=== PATIENT | female | born 1985 | race Caucasian/White ===

== ENCOUNTER 2019-04-22 11:00 | Observation (INO) | payer MEDICAID ==
[2019-04-22] MEDS ORDERED: Sodium Chloride 0.9% 1,000 ML IV ONE ×2 (11:15→12:48)
[2019-04-22] MEDS ORDERED: Sodium Chloride 0.9% 2.5 ML Syringe FLUSH PRN (11:15)
[2019-04-22] MEDS ORDERED: Alum Hydrox/Mag Hydrox/Simeth 15 ML, Lidocaine 2% 5 ML PO ONE ×2 (11:15)
[2019-04-22] MEDS ORDERED: Sodium Chloride 0.9% 10 ML Syringe FLUSH PRN (11:15)
--- NOTE | 2019-04-22 11:20 | EDM.PDOC ---
ED HPI GENERAL MEDICAL PROBLEM - General Chief Complaint: Abdominal Pain Stated Complaint: STOMACH PAIN AND VOMITING Time Seen by Provider: 04/22/19 11:19 Source of Information: Reports: Patient History Limitations: Reports: No Limitations - History of Present Illness INITIAL COMMENTS - FREE TEXT/NARRATIVE: HISTORY AND PHYSICAL: History of present illness: Patient is a 33-year-old female presents to the ED with complaint of abdominal pain and vomiting x 4 days. She reports having a fever the first day, can't keep anything down and has been dizzy. She reports back pain as well. Denies chest pain, SOB, diarrhea, dysuria, hematuria. Past medical history significant for T1DM. Patient has a power port secondary to multiple hospital visits due to her diabetes. Review of systems: As per history of present illness and below otherwise all systems reviewed and negative. Past medical history: As per history of present illness and as reviewed below otherwise noncontributory. Surgical history: As per history of present illness and as reviewed below otherwise noncontributory. Social history: No reported history of drug or alcohol abuse. Family history: As per history of present illness and as reviewed below otherwise noncontributory. Physical exam: General: Patient sitting comfortably in no acute distress and nontoxic appearing HEENT: Atraumatic, normocephalic, pupils reactive, negative for conjunctival pallor or scleral icterus, mucous membranes moist, throat clear, neck supple, nontender, trachea midline. No meningeal signs. Lungs: Clear to auscultation, breath sounds equal bilaterally, chest nontender. Heart: S1S2, regular, negative for clicks, rubs, or overt murmur. Abdomen: Soft, nondistended, nontender. Negative for masses or hepatosplenomegaly.Bilateral costovertebral tenderness. No rigidity, rebound, guarding. Pelvis: Stable nontender. Genitourinary: Deferred. Rectal: Deferred. Extremities: Atraumatic, negative for cords or calf pain. Neurovascular unremarkable. Neuro: Awake, alert, oriented. Cranial nerves II through XII unremarkable. Cerebellum unremarkable. Motor and sensory unremarkable throughout. Exam nonfocal. Notes: Discussed with patient that she has elevated liver enzymes, she reports a history of this due to fatty liver disease Diagnostics: CBC, CMP, UA, urine hcg, EKG, ABG Therapeutics: 1L NS IV GI cocktail 10U insulin IV 2mg Morphine IV 50mg Benadryl IV Levaquin IV Prescriptions: Impression: Dehydration, pyelonephritis Plan: Discussed with Dr. [place], patient admitted to observation for treatment of pyelonephritis and dehydration Definitive disposition and diagnosis as appropriate pending reevaluation and review of above. epigastric Pain Score (Numeric/FACES): 9 - Related Data Allergies Allergy/AdvReac Type Severity Reaction Status Date / Time acetaminophen [From Tylenol] Allergy Other Verified 04/22/19 11:15 aspirin Allergy Other Verified 04/22/19 11:15 buprenorphine [From Buprenex] Allergy Hallucinati Verified 04/22/19 11:15 ons butorphanol [From Stadol] Allergy Hallucinati Verified 04/22/19 11:15 ons ceftriaxone [From Rocephin] Allergy Indigestion Verified 04/22/19 11:15 cephalexin [From Keflex] Allergy Hallucinati Verified 04/22/19 11:15 ons fentanyl Allergy Hallucinati Verified 04/22/19 11:15 ons hydromorphone [From Dilaudid] Allergy Hives Verified 04/22/19 11:15 ketorolac [From Toradol] Allergy Hallucinati Verified 04/22/19 11:15 ons metoclopramide [From Reglan] Allergy Seizure Verified 04/22/19 11:15 tramadol Allergy Hallucinati Verified 04/22/19 11:15 ons Home Meds: Home Meds Albuterol [Proventil Neb Soln] 1 puff INH ASDIRECTED PRN 04/22/19 [History] Insulin Degludec [Tresiba] 15 units INJECT ACDINNER 04/22/19 [History] Insulin Degludec [Tresiba] 25 units INJECT ACBREAKFAST 04/22/19 [History] Insulin Lispro [HumaLOG] 1 dose INJECT ASDIRECTED 04/22/19 [History] LORazepam [Ativan] 1 mg PO ASDIRECTED PRN 04/22/19 [History] [place] Aspartate [Lithate] 300 mg PO BID 04/22/19 [History] QUEtiapine [SEROquel] 200 mg PO BEDTIME 04/22/19 [History] ED ROS GENERAL - Review of Systems Review Of Systems: ROS reveals no pertinent complaints other than HPI. ED EXAM, GI/ABD - Physical Exam Exam: See Below (see dictation) Course - Vital Signs Last Recorded V/S: Last Vital Signs Temp 97.5 F 04/22/19 11:10 Pulse 93 04/22/19 12:45 Resp 16 04/22/19 12:45 BP 113/71 04/22/19 12:55 Pulse Ox 96 04/22/19 12:45 - Orders/Labs/Meds Orders: Active Orders 24 hr Category Date Time Status Blood Glucose Check, Bedside [RC] ONETIME Care 04/22/19 11:20 Active EKG Documentation Completion [RC] STAT Care 04/22/19 11:22 Active CULTURE BLOOD [BC] Stat Lab 04/22/19 13:26 Ordered CULTURE BLOOD [BC] Stat Lab 04/22/19 13:26 Ordered CULTURE URINE [RM] Stat Lab 04/22/19 12:50 Received Levofloxacin/Dextrose 5%-Water [Levaquin in D5W 750 MG/ Med 04/22/19 13:26 Ordered 150 ML] 750 mg Premix Bag 1 bag IV ONETIME Sodium Chloride 0.9% [Normal Saline] 1,000 ml Med 04/22/19 12:48 Active IV .Bolus Sodium Chloride 0.9% [Saline Flush] Med 04/22/19 11:15 Active 10 ml FLUSH ASDIRECTED PRN Sodium Chloride 0.9% [Saline Flush] Med 04/22/19 11:15 Active 2.5 ml FLUSH ASDIRECTED PRN Blood Culture x2 Reflex Set [OM.PC] Stat Oth 04/22/19 13:26 Ordered Saline Lock Insert [OM.PC] Stat Ot 04/22/19 11:15 Ordered Medication Orders Sodium Chloride (Normal Saline) 1,000 mls @ 999 mls/hr IV .Bolus ONE Stop: 04/22/19 13:48 Last Admin: 04/22/19 12:49 Dose: 999 mls/hr Sodium Chloride (Saline Flush) 10 ml FLUSH ASDIRECTED PRN PRN Reason: Keep Vein Open Sodium Chloride (Saline Flush) 2.5 ml FLUSH ASDIRECTED PRN PRN Reason: Keep Vein Open Labs: Laboratory Tests 04/22/19 04/22/19 04/22/19 Range/Units 11:13 11:30 11:30 WBC 7.21 (4.0-11.0) K/uL RBC 4.82 (4.30-5.90) M/uL Hgb 14.0 (12.0-16.0) g/dL Hct 40.8 (36.0-46.0) % MCV 84.6 (80.0-98.0) fL MCH 29.0 (27.0-32.0) pg MCHC 34.3 (31.0-37.0) g/dL RDW Std Deviation 41.2 (28.0-62.0) fl RDW Coeff of Krystina 13 (11.0-15.0) % Plt Count 289 (150-400) K/uL MPV 12.00 (7.40-12.00) fL Neut % (Auto) 55.8 (48.0-80.0) % Lymph % (Auto) 31.6 (16.0-40.0) % [place] % (Auto) 7.8 (0.0-15.0) % Eos % (Auto) 3.7 (0.0-7.0) % Baso % (Auto) 1.1 (0.0-1.5) % Neut # (Auto) 4.0 (1.4-5.7) K/uL Lymph # (Auto) 2.3 (0.6-2.4) K/uL [place] # (Auto) 0.6 (0.0-0.8) K/uL Eos # (Auto) 0.3 (0.0-0.7) K/uL Baso # (Auto) 0.1 (0.0-0.1) K/uL Nucleated RBC % 0.0 /100WBC Nucleated RBCs # 0 K/uL VBG pH (7.31-7.41) VBG pCO2 (35-45) mmHG VBG pO2 (30-40) mmHG VBG HCO3 (22-30) mEq/L VBG Total CO2 (41-51) mmol/L VBG Base Excess (-3.0-3.0) Sodium 124 L (136-145) mmol/L Potassium 3.6 (3.5-5.1) mmol/L Chloride 87 L (98-107) mmol/L Carbon Dioxide 20.3 L (21.0-32.0) mmol/L BUN 27 H (7.0-18.0) mg/dL Creatinine 1.5 H (0.6-1.0) mg/dL Est Cr Clr Drug Dosing 48.45 mL/min Estimated GFR (MDRD) 40.2 ml/min Glucose 674 H* (74-106) mg/dL POC Glucose > 500 H (60-110) mg/dL Calcium 9.4 (8.5-10.1) mg/dL Total Bilirubin 0.6 (0.2-1.0) mg/dL AST 68 H (15-37) IU/L ALT 215 H (14-63) IU/L Alkaline Phosphatase 332 H (46-116) U/L Total Protein 8.0 (6.4-8.2) g/dL Albumin 4.2 (3.4-5.0) g/dL Globulin 3.8 (2.6-4.0) g/dL Albumin/Globulin Ratio 1.1 (0.9-1.6) Lipase 259 (73-393) U/L Urine Color Urine Appearance Urine pH (5.0-8.0) Ur Specific [place] (1.001-1.035) Urine Protein (NEGATIVE) mg/dL Urine Glucose (UA) (NEGATIVE) mg/dL Urine Ketones (NEGATIVE) mg/dL Urine Occult Blood (NEGATIVE) Urine Nitrite (NEGATIVE) Urine Bilirubin (NEGATIVE) Urine Urobilinogen (<2.0) EU/dL Ur Leukocyte Esterase (NEGATIVE) Urine RBC (0-2/HPF) Urine WBC (0-5/HPF) Ur Epithelial Cells (NONE-FEW) Urine Bacteria (NEGATIVE) Urine Mucus (NONE-MOD) Urine Yeast Urine HCG, Qual (NEGATIVE) 04/22/19 04/22/19 04/22/19 Range/Units 12:19 12:20 12:50 WBC (4.0-11.0) K/uL RBC (4.30-5.90) M/uL Hgb (12.0-16.0) g/dL Hct (36.0-46.0) % MCV (80.0-98.0) fL MCH (27.0-32.0) pg MCHC (31.0-37.0) g/dL RDW Std Deviation (28.0-62.0) fl RDW Coeff of Krystina (11.0-15.0) % Plt Count (150-400) K/uL MPV (7.40-12.00) fL Neut % (Auto) (48.0-80.0) % Lymph % (Auto) (16.0-40.0) % [place] % (Auto) (0.0-15.0) % Eos % (Auto) (0.0-7.0) % Baso % (Auto) (0.0-1.5) % Neut # (Auto) (1.4-5.7) K/uL Lymph # (Auto) (0.6-2.4) K/uL [place] # (Auto) (0.0-0.8) K/uL Eos # (Auto) (0.0-0.7) K/uL Baso # (Auto) (0.0-0.1) K/uL Nucleated RBC % /100WBC Nucleated RBCs # K/uL VBG pH 7.36 (7.31-7.41) VBG pCO2 39 (35-45) mmHG VBG pO2 40 (30-40) mmHG VBG HCO3 22 (22-30) mEq/L VBG Total CO2 20 L (41-51) mmol/L VBG Base Excess -3.2 L (-3.0-3.0) Sodium (136-145) mmol/L Potassium (3.5-5.1) mmol/L Chloride (98-107) mmol/L Carbon Dioxide (21.0-32.0) mmol/L BUN (7.0-18.0) mg/dL Creatinine (0.6-1.0) mg/dL Est Cr Clr Drug Dosing mL/min Estimated GFR (MDRD) ml/min Glucose (74-106) mg/dL POC Glucose > 500 H (60-110) mg/dL Calcium (8.5-10.1) mg/dL Total Bilirubin (0.2-1.0) mg/dL AST (15-37) IU/L ALT (14-63) IU/L Alkaline Phosphatase (46-116) U/L Total Protein (6.4-8.2) g/dL Albumin (3.4-5.0) g/dL Globulin (2.6-4.0) g/dL Albumin/Globulin Ratio (0.9-1.6) Lipase (73-393) U/L Urine Color YELLOW Urine Appearance SLT CLOUDY Urine pH 5.5 (5.0-8.0) Ur Specific [place] 1.010 (1.001-1.035) Urine Protein NEGATIVE (NEGATIVE) mg/dL Urine Glucose (UA) >=1000 (NEGATIVE) mg/dL Urine Ketones 15 H (NEGATIVE) mg/dL Urine Occult Blood TRACE-INTACT H (NEGATIVE) Urine Nitrite POSITIVE H (NEGATIVE) Urine Bilirubin NEGATIVE (NEGATIVE) Urine Urobilinogen 0.2 (<2.0) EU/dL Ur Leukocyte Esterase TRACE H (NEGATIVE) Urine RBC 0-3 (0-2/HPF) Urine WBC 10-15 (0-5/HPF) Ur Epithelial Cells MANY (NONE-FEW) Urine Bacteria 3+ H (NEGATIVE) Urine Mucus LIGHT (NONE-MOD) Urine Yeast FEW Urine HCG, Qual (NEGATIVE) 04/22/19 04/22/19 Range/Units 12:50 13:02 WBC (4.0-11.0) K/uL RBC (4.30-5.90) M/uL Hgb (12.0-16.0) g/dL Hct (36.0-46.0) % MCV (80.0-98.0) fL MCH (27.0-32.0) pg MCHC (31.0-37.0) g/dL RDW Std Deviation (28.0-62.0) fl RDW Coeff of Krystina (11.0-15.0) % Plt Count (150-400) K/uL MPV (7.40-12.00) fL Neut % (Auto) (48.0-80.0) % Lymph % (Auto) (16.0-40.0) % [place] % (Auto) (0.0-15.0) % Eos % (Auto) (0.0-7.0) % Baso % (Auto) (0.0-1.5) % Neut # (Auto) (1.4-5.7) K/uL Lymph # (Auto) (0.6-2.4) K/uL [place] # (Auto) (0.0-0.8) K/uL Eos # (Auto) (0.0-0.7) K/uL Baso # (Auto) (0.0-0.1) K/uL Nucleated RBC % /100WBC Nucleated RBCs # K/uL VBG pH (7.31-7.41) VBG pCO2 (35-45) mmHG VBG pO2 (30-40) mmHG VBG HCO3 (22-30) mEq/L VBG Total CO2 (41-51) mmol/L VBG Base Excess (-3.0-3.0) Sodium (136-145) mmol/L Potassium (3.5-5.1) mmol/L Chloride (98-107) mmol/L Carbon Dioxide (21.0-32.0) mmol/L BUN (7.0-18.0) mg/dL Creatinine (0.6-1.0) mg/dL Est Cr Clr Drug Dosing mL/min Estimated GFR (MDRD) ml/min Glucose (74-106) mg/dL POC Glucose 387 H (60-110) mg/dL Calcium (8.5-10.1) mg/dL Total Bilirubin (0.2-1.0) mg/dL AST (15-37) IU/L ALT (14-63) IU/L Alkaline Phosphatase (46-116) U/L Total Protein (6.4-8.2) g/dL Albumin (3.4-5.0) g/dL Globulin (2.6-4.0) g/dL Albumin/Globulin Ratio (0.9-1.6) Lipase (73-393) U/L Urine Color Urine Appearance Urine pH (5.0-8.0) Ur Specific [place] (1.001-1.035) Urine Protein (NEGATIVE) mg/dL Urine Glucose (UA) (NEGATIVE) mg/dL Urine Ketones (NEGATIVE) mg/dL Urine Occult Blood (NEGATIVE) Urine Nitrite (NEGATIVE) Urine Bilirubin (NEGATIVE) Urine Urobilinogen (<2.0) EU/dL Ur Leukocyte Esterase (NEGATIVE) Urine RBC (0-2/HPF) Urine WBC (0-5/HPF) Ur Epithelial Cells (NONE-FEW) Urine Bacteria (NEGATIVE) Urine Mucus (NONE-MOD) Urine Yeast Urine HCG, Qual NEGATIVE (NEGATIVE) Meds: Medications Generic Name Dose Route Start Last Admin Trade Name Freq PRN Reason Stop Dose Admin Sodium Chloride 1,000 mls @ 999 mls/hr 04/22/19 12:48 04/22/19 12:49 Normal Saline IV 04/22/19 13:48 999 mls/hr .Bolus ONE Administration Sodium Chloride 10 ml 04/22/19 11:15 Saline Flush FLUSH ASDIRECTED PRN Keep Vein Open Sodium Chloride 2.5 ml 04/22/19 11:15 Saline Flush FLUSH ASDIRECTED PRN Keep Vein Open Discontinued Medications Generic Name Dose Route Start Last Admin Trade Name Freq PRN Reason Stop Dose Admin Al Hydroxide/Mg Hydroxide 15 0 ml 04/22/19 11:15 04/22/19 11:27 ml/ Lidocaine HCl 5 ml PO 04/22/19 11:16 1 each ONETIME ONE Administration Diphenhydramine HCl 50 mg 04/22/19 12:38 04/22/19 12:50 Benadryl IVPUSH 04/22/19 12:39 50 mg ONETIME ONE Administration Sodium Chloride 1,000 mls @ 999 mls/hr 04/22/19 11:15 04/22/19 11:29 Normal Saline IV 04/22/19 12:15 999 mls/hr STAT ONE Administration Insulin Human Regular 10 unit 04/22/19 11:37 04/22/19 11:49 Novolin R IVPUSH 04/22/19 11:38 10 units ONETIME ONE Administration Protocol Morphine Sulfate 2 mg 04/22/19 12:35 04/22/19 12:50 Morphine IVPUSH 04/22/19 12:36 2 mg ONETIME ONE Administration Departure - Departure Time of Disposition: 13:28 Disposition: Refer to Observation Condition: Good Clinical Impression: Pyelonephritis, Dehydration - Discharge Information Referrals: PCP,Unknown [Primary Care Provider] - Forms: ED Department Discharge - My Orders Last 24 Hours: My Active Orders 04/22/19 11:15 Sodium Chloride 0.9% [Saline Flush] 10 ml FLUSH ASDIRECTED PRN Sodium Chloride 0.9% [Saline Flush] 2.5 ml FLUSH ASDIRECTED PRN Saline Lock Insert [OM.PC] Stat 04/22/19 11:20 Blood Glucose Check, Bedside [RC] ONETIME 04/22/19 11:22 EKG Documentation Completion [RC] STAT 04/22/19 12:48 Sodium Chloride 0.9% [Normal Saline] 1,000 ml IV .Bolus 04/22/19 12:50 CULTURE URINE [RM] Stat 04/22/19 13:26 CULTURE BLOOD [BC] Stat CULTURE BLOOD [BC] Stat Levofloxacin/Dextrose 5%-Water [Levaquin in D5W 750 MG/150 ML] 750 mg Premix Bag 1 bag IV ONETIME Blood Culture x2 Reflex Set [OM.PC] Stat - Assessment/Plan Last 24 Hours: My Active Orders 04/22/19 11:15 Sodium Chloride 0.9% [Saline Flush] 10 ml FLUSH ASDIRECTED PRN Sodium Chloride 0.9% [Saline Flush] 2.5 ml FLUSH ASDIRECTED PRN Saline Lock Insert [OM.PC] Stat 04/22/19 11:20 Blood Glucose Check, Bedside [RC] ONETIME 04/22/19 11:22 EKG Documentation Completion [RC] STAT 04/22/19 12:48 Sodium Chloride 0.9% [Normal Saline] 1,000 ml IV .Bolus 04/22/19 12:50 CULTURE URINE [RM] Stat 04/22/19 13:26 CULTURE BLOOD [BC] Stat CULTURE BLOOD [BC] Stat Levofloxacin/Dextrose 5%-Water [Levaquin in D5W 750 MG/150 ML] 750 mg Premix Bag 1 bag IV ONETIME Blood Culture x2 Reflex Set [OM.PC] Stat
[2019-04-22] MEDS ORDERED: Insulin Regular, Human 100 Units/ML 10 ML Vial IVPUSH ONE (11:37)
[2019-04-22] MEDS ORDERED: Morphine 2 MG/ML Syringe IVPUSH ONE (12:35)
[2019-04-22] MEDS ORDERED: diphenhydrAMINE 50 MG/ML SDV IVPUSH ONE (12:38)
[2019-04-22] MEDS ORDERED: Levofloxacin/Dextrose 5%-Water 750 MG in Premix Bag 1 BAG IV ONE (13:26)
[2019-04-22] MEDS ORDERED: Non-Formulary Medication 1 Each (Albuterol 1 PUFF) INH PRN (13:45)
[2019-04-22] MEDS ORDERED: LORazepam 1 MG Tab PO PRN (13:45)
--- NOTE | 2019-04-22 13:45 | PCM.HP ---
H&P History of Present Illness - General Date of Service: 04/22/19 Admit Problem/Dx: Admission Diagnosis/Problem Admission Diagnosis/Problem Pyelonephritis, gastroparesis, poorly controlled type 1 diabetes mellitus, neuropathy Source of Information: Patient History Limitations: Reports: No Limitations - History of Present Illness Initial Comments - Free Text/Narative: The patient is a 33-year-old lady who is presented to the emergency department primarily with a complaint of abdominal pain. The patient has a history of diabetic gastroparesis and she is a type I diabetic who is poorly controlled. The patient has recently moved to the area. The patient reports that she has been unable to keep anything down. She also had some fevers reported. The patient reports that she has had back pain as well. The patient also has a port secondary to multiple hospitalizations due to her diabetes and poor venous access. The patient has no other complaints at this time. Onset of Symptoms: Reports: Gradual Duration of Symptoms: Reports: Day(s): Location: Reports: Abdomen Quality: Reports: Pressure, Stabbing, Throbbing Severity: Moderate Improves with: Reports: Medication Worsens with: Reports: Eating Context: Reports: Other (Diabetes mellitus type 1) Associated Symptoms: Reports: Fever/Chills epigastric Pain Score (Numeric/FACES): 9 - Related Data Allergies/Adverse Reactions: Allergies Allergy/AdvReac Type Severity Reaction Status Date / Time acetaminophen [From Tylenol] Allergy Other Verified 04/22/19 14:22 aspirin Allergy Other Verified 04/22/19 14:22 buprenorphine [From Buprenex] Allergy Hallucinati Verified 04/22/19 14:22 ons butorphanol [From Stadol] Allergy Hallucinati Verified 04/22/19 14:22 ons ceftriaxone [From Rocephin] Allergy Indigestion Verified 04/22/19 14:22 cephalexin [From Keflex] Allergy Hallucinati Verified 04/22/19 14:22 ons fentanyl Allergy Hallucinati Verified 04/22/19 14:22 ons hydromorphone [From Dilaudid] Allergy Hives Verified 04/22/19 14:22 ketorolac [From Toradol] Allergy Hallucinati Verified 04/22/19 14:22 ons metoclopramide [From Reglan] Allergy Seizure Verified 04/22/19 14:22 tramadol Allergy Hallucinati Verified 04/22/19 14:22 ons Home Medications: Home Meds Albuterol [Proventil Neb Soln] 2 puff INH ASDIRECTED PRN 04/22/19 [History] Insulin Degludec [Tresiba] 15 units INJECT ACDINNER 04/22/19 [History] Insulin Degludec [Tresiba] 25 units INJECT ACBREAKFAST 04/22/19 [History] Insulin Lispro [HumaLOG] 1 dose INJECT ASDIRECTED 04/22/19 [History] LORazepam [Ativan] 1 mg PO ASDIRECTED PRN 04/22/19 [History] [place] Aspartate [Lithate] 300 mg PO BID 04/22/19 [History] QUEtiapine [SEROquel] 200 mg PO BEDTIME 04/22/19 [History] Past Medical History HEENT History: Reports: Impaired Vision Cardiovascular History: Reports: Other (See Below) Other Cardiovascular History: PAD Respiratory History: Reports: Asthma, Bronchitis, Recurrent, Pneumonia, Recurrent Gastrointestinal History: Reports: Other (See Below) Other Gastrointestinal History: Gastroparesis Genitourinary History: Reports: Renal Calculus, UTI, Recurrent 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: Reports: , Other (See Below) Other OB/BYN History: coma for 8 days due to UTI/spesis Musculoskeletal History: Reports: Osteoarthritis, Other (See Below) Other Musculoskeletal History: muscular atrophy Neurological History: Reports: Neuropathy, Diabetic Psychiatric History: Reports: Anxiety, Bipolar, Depression, Other (See Below) Other Psychiatric History: Schizoaffect disease, manic depressive Endocrine/Metabolic History: Reports: Diabetes, Type I Hematologic History: Reports: B12 Deficiency, Other (See Below) Other Hematologic History: hyponatremia Immunologic History: Reports: None Oncologic (Cancer) History: Reports: None Dermatologic History: Reports: Psoriasis - Infectious Disease History Infectious Disease History: Reports: Chicken Pox - Past Surgical History HEENT Surgical History: Reports: None Cardiovascular Surgical History: Reports: Other (See Below) Other Cardiovascular Surgeries/Procedures: PAD corrected at age 4 Respiratory Surgical History: Reports: None GI Surgical History: Reports: Cholecystectomy, Esophageal Dilatation Female Surgical History: Reports: D&C, Other (See Below) Other Female Surgeries/Procedures: D& C x3 Endocrine Surgical History: Reports: None Neurological Surgical History: Reports: None Musculoskeletal Surgical History: Reports: None Oncologic Surgical History: Reports: None Dermatological Surgical History: Reports: None Social & Family History - Family History Family Medical History: Noncontributory - Tobacco Use Smoking Status *Q: Current Every Day Smoker Years of Tobacco use: 15 Packs/Tins Daily: 0.5 - Caffeine Use Caffeine Use: Reports: Coffee, Soda - Alcohol Use Alcohol Use History: No - Recreational Drug Use Recreational Drug Use: No - Living Situation & Occupation Living situation: Reports: with Significant Other Occupation: Unemployed H&P Review of Systems - Review of Systems: Review Of Systems: See Below General: Reports: Fever, Chills HEENT: Reports: No Symptoms Pulmonary: Reports: No Symptoms Cardiovascular: Reports: No Symptoms Gastrointestinal: Reports: Abdominal Pain, Nausea, Vomiting Genitourinary: Reports: No Symptoms Musculoskeletal: Reports: Back Pain Skin: Reports: No Symptoms Psychiatric: Reports: No Symptoms Neurological: Reports: No Symptoms Hematologic/Lymphatic: Reports: No Symptoms Immunologic: Reports: No Symptoms Exam - Exam Exam: See Below - Vital Signs Vital Signs: Last Vital Signs Temp 36.4 C 04/22/19 11:10 Pulse 88 04/22/19 13:36 Resp 18 04/22/19 13:36 BP 109/65 04/22/19 13:36 Pulse Ox 97 04/22/19 13:36 Weight: 59.9 kg - Exam Quality Assessment: Other (Access port left chest wall). No: Supplemental Oxygen General: Alert, Oriented, Cooperative, Mild Distress HEENT: Conjunctiva Clear, EACs Clear, EOMI, Hearing Intact, Pupils Equal, PERRLA. No: Mucosa Moist & [place] (Dry, poor dentition) Neck: Supple, Trachea Midline Lungs: Clear to Auscultation, Normal Respiratory Effort Cardiovascular: Regular Rate, Regular Rhythm GI/Abdominal Exam: Soft, No Distention, Tender (Periumbilical). No: Normal Bowel Sounds (Decreased), Guarding, Rigid, Rebound Back Exam: Normal Inspection, Full Range of Motion Extremities: Normal Inspection, Normal Range of Motion, No Pedal Edema Skin: Warm, Dry, Intact Neurological: Cranial Nerves Intact Neuro Extensive - Mental Status: Alert, Oriented x3 Psychiatric: Alert, Normal Affect, Normal Mood - Patient Data Lab Results Last 24 hrs: Laboratory Results - last 24 hr 04/22/19 04/22/19 04/22/19 Range/Units 11:13 11:30 11:30 WBC 7.21 (4.0-11.0) K/uL RBC 4.82 (4.30-5.90) M/uL Hgb 14.0 (12.0-16.0) g/dL Hct 40.8 (36.0-46.0) % MCV 84.6 (80.0-98.0) fL MCH 29.0 (27.0-32.0) pg MCHC 34.3 (31.0-37.0) g/dL RDW Std Deviation 41.2 (28.0-62.0) fl RDW Coeff of Krystina 13 (11.0-15.0) % Plt Count 289 (150-400) K/uL MPV 12.00 (7.40-12.00) fL Neut % (Auto) 55.8 (48.0-80.0) % Lymph % (Auto) 31.6 (16.0-40.0) % [place] % (Auto) 7.8 (0.0-15.0) % Eos % (Auto) 3.7 (0.0-7.0) % Baso % (Auto) 1.1 (0.0-1.5) % Neut # (Auto) 4.0 (1.4-5.7) K/uL Lymph # (Auto) 2.3 (0.6-2.4) K/uL [place] # (Auto) 0.6 (0.0-0.8) K/uL Eos # (Auto) 0.3 (0.0-0.7) K/uL Baso # (Auto) 0.1 (0.0-0.1) K/uL Nucleated RBC % 0.0 /100WBC Nucleated RBCs # 0 K/uL VBG pH (7.31-7.41) VBG pCO2 (35-45) mmHG VBG pO2 (30-40) mmHG VBG HCO3 (22-30) mEq/L VBG Total CO2 (41-51) mmol/L VBG Base Excess (-3.0-3.0) Sodium 124 L (136-145) mmol/L Potassium 3.6 (3.5-5.1) mmol/L Chloride 87 L (98-107) mmol/L Carbon Dioxide 20.3 L (21.0-32.0) mmol/L BUN 27 H (7.0-18.0) mg/dL Creatinine 1.5 H (0.6-1.0) mg/dL Est Cr Clr Drug Dosing 48.45 mL/min Estimated GFR (MDRD) 40.2 ml/min Glucose 674 H* (74-106) mg/dL POC Glucose > 500 H (60-110) mg/dL Calcium 9.4 (8.5-10.1) mg/dL Total Bilirubin 0.6 (0.2-1.0) mg/dL AST 68 H (15-37) IU/L ALT 215 H (14-63) IU/L Alkaline Phosphatase 332 H (46-116) U/L Total Protein 8.0 (6.4-8.2) g/dL Albumin 4.2 (3.4-5.0) g/dL Globulin 3.8 (2.6-4.0) g/dL Albumin/Globulin Ratio 1.1 (0.9-1.6) Lipase 259 (73-393) U/L Urine Color Urine Appearance Urine pH (5.0-8.0) Ur Specific [place] (1.001-1.035) Urine Protein (NEGATIVE) mg/dL Urine Glucose (UA) (NEGATIVE) mg/dL Urine Ketones (NEGATIVE) mg/dL Urine Occult Blood (NEGATIVE) Urine Nitrite (NEGATIVE) Urine Bilirubin (NEGATIVE) Urine Urobilinogen (<2.0) EU/dL Ur Leukocyte Esterase (NEGATIVE) Urine RBC (0-2/HPF) Urine WBC (0-5/HPF) Ur Epithelial Cells (NONE-FEW) Urine Bacteria (NEGATIVE) Urine Mucus (NONE-MOD) Urine Yeast Urine HCG, Qual (NEGATIVE) 04/22/19 04/22/19 04/22/19 Range/Units 12:19 12:20 12:50 WBC (4.0-11.0) K/uL RBC (4.30-5.90) M/uL Hgb (12.0-16.0) g/dL Hct (36.0-46.0) % MCV (80.0-98.0) fL MCH (27.0-32.0) pg MCHC (31.0-37.0) g/dL RDW Std Deviation (28.0-62.0) fl RDW Coeff of Krystina (11.0-15.0) % Plt Count (150-400) K/uL MPV (7.40-12.00) fL Neut % (Auto) (48.0-80.0) % Lymph % (Auto) (16.0-40.0) % [place] % (Auto) (0.0-15.0) % Eos % (Auto) (0.0-7.0) % Baso % (Auto) (0.0-1.5) % Neut # (Auto) (1.4-5.7) K/uL Lymph # (Auto) (0.6-2.4) K/uL [place] # (Auto) (0.0-0.8) K/uL Eos # (Auto) (0.0-0.7) K/uL Baso # (Auto) (0.0-0.1) K/uL Nucleated RBC % /100WBC Nucleated RBCs # K/uL VBG pH 7.36 (7.31-7.41) VBG pCO2 39 (35-45) mmHG VBG pO2 40 (30-40) mmHG VBG HCO3 22 (22-30) mEq/L VBG Total CO2 20 L (41-51) mmol/L VBG Base Excess -3.2 L (-3.0-3.0) Sodium (136-145) mmol/L Potassium (3.5-5.1) mmol/L Chloride (98-107) mmol/L Carbon Dioxide (21.0-32.0) mmol/L BUN (7.0-18.0) mg/dL Creatinine (0.6-1.0) mg/dL Est Cr Clr Drug Dosing mL/min Estimated GFR (MDRD) ml/min Glucose (74-106) mg/dL POC Glucose > 500 H (60-110) mg/dL Calcium (8.5-10.1) mg/dL Total Bilirubin (0.2-1.0) mg/dL AST (15-37) IU/L ALT (14-63) IU/L Alkaline Phosphatase (46-116) U/L Total Protein (6.4-8.2) g/dL Albumin (3.4-5.0) g/dL Globulin (2.6-4.0) g/dL Albumin/Globulin Ratio (0.9-1.6) Lipase (73-393) U/L Urine Color YELLOW Urine Appearance SLT CLOUDY Urine pH 5.5 (5.0-8.0) Ur Specific [place] 1.010 (1.001-1.035) Urine Protein NEGATIVE (NEGATIVE) mg/dL Urine Glucose (UA) >=1000 (NEGATIVE) mg/dL Urine Ketones 15 H (NEGATIVE) mg/dL Urine Occult Blood TRACE-INTACT H (NEGATIVE) Urine Nitrite POSITIVE H (NEGATIVE) Urine Bilirubin NEGATIVE (NEGATIVE) Urine Urobilinogen 0.2 (<2.0) EU/dL Ur Leukocyte Esterase TRACE H (NEGATIVE) Urine RBC 0-3 (0-2/HPF) Urine WBC 10-15 (0-5/HPF) Ur Epithelial Cells MANY (NONE-FEW) Urine Bacteria 3+ H (NEGATIVE) Urine Mucus LIGHT (NONE-MOD) Urine Yeast FEW Urine HCG, Qual (NEGATIVE) 04/22/19 04/22/19 Range/Units 12:50 13:02 WBC (4.0-11.0) K/uL RBC (4.30-5.90) M/uL Hgb (12.0-16.0) g/dL Hct (36.0-46.0) % MCV (80.0-98.0) fL MCH (27.0-32.0) pg MCHC (31.0-37.0) g/dL RDW Std Deviation (28.0-62.0) fl RDW Coeff of Krystina (11.0-15.0) % Plt Count (150-400) K/uL MPV (7.40-12.00) fL Neut % (Auto) (48.0-80.0) % Lymph % (Auto) (16.0-40.0) % [place] % (Auto) (0.0-15.0) % Eos % (Auto) (0.0-7.0) % Baso % (Auto) (0.0-1.5) % Neut # (Auto) (1.4-5.7) K/uL Lymph # (Auto) (0.6-2.4) K/uL [place] # (Auto) (0.0-0.8) K/uL Eos # (Auto) (0.0-0.7) K/uL Baso # (Auto) (0.0-0.1) K/uL Nucleated RBC % /100WBC Nucleated RBCs # K/uL VBG pH (7.31-7.41) VBG pCO2 (35-45) mmHG VBG pO2 (30-40) mmHG VBG HCO3 (22-30) mEq/L VBG Total CO2 (41-51) mmol/L VBG Base Excess (-3.0-3.0) Sodium (136-145) mmol/L Potassium (3.5-5.1) mmol/L Chloride (98-107) mmol/L Carbon Dioxide (21.0-32.0) mmol/L BUN (7.0-18.0) mg/dL Creatinine (0.6-1.0) mg/dL Est Cr Clr Drug Dosing mL/min Estimated GFR (MDRD) ml/min Glucose (74-106) mg/dL POC Glucose 387 H (60-110) mg/dL Calcium (8.5-10.1) mg/dL Total Bilirubin (0.2-1.0) mg/dL AST (15-37) IU/L ALT (14-63) IU/L Alkaline Phosphatase (46-116) U/L Total Protein (6.4-8.2) g/dL Albumin (3.4-5.0) g/dL Globulin (2.6-4.0) g/dL Albumin/Globulin Ratio (0.9-1.6) Lipase (73-393) U/L Urine Color Urine Appearance Urine pH (5.0-8.0) Ur Specific [place] (1.001-1.035) Urine Protein (NEGATIVE) mg/dL Urine Glucose (UA) (NEGATIVE) mg/dL Urine Ketones (NEGATIVE) mg/dL Urine Occult Blood (NEGATIVE) Urine Nitrite (NEGATIVE) Urine Bilirubin (NEGATIVE) Urine Urobilinogen (<2.0) EU/dL Ur Leukocyte Esterase (NEGATIVE) Urine RBC (0-2/HPF) Urine WBC (0-5/HPF) Ur Epithelial Cells (NONE-FEW) Urine Bacteria (NEGATIVE) Urine Mucus (NONE-MOD) Urine Yeast Urine HCG, Qual NEGATIVE (NEGATIVE) Result Diagrams: 04/22/19 11:30 04/22/19 11:30 - Problem List (1) Pyelonephritis SNOMED Code(s): 90694765 ICD Code: N12 - TUBULO-INTERSTITIAL NEPHRITIS, NOT SPCF ACUTE OR CHRONIC Status: Acute Priority: High Current Visit: Yes (2) Gastroparesis diabeticorum SNOMED Code(s): 900579820 ICD Code: E11.43 - TYPE 2 DIABETES W DIABETIC AUTONOMIC (POLY)NEUROPATHY; K31.84 - GASTROPARESIS Status: Chronic Priority: High Current Visit: Yes (3) Neuropathy due to unstable diabetes mellitus type 1 SNOMED Code(s): 094596564 ICD Code: E10.40 - TYPE 1 DIABETES MELLITUS WITH DIABETIC NEUROPATHY, UNSP Status: Chronic Priority: Medium Current Visit: Yes (4) Tobacco use SNOMED Code(s): 402499148 ICD Code: Z72.0 - TOBACCO USE Status: Chronic Priority: Medium Current Visit: Yes (5) Transaminitis SNOMED Code(s): 730244717, 264711415 ICD Code: R74.0 - NONSPEC ELEV OF LEVELS OF TRANSAMNS & LACTIC ACID DEHYDRGNSE Status: Chronic Priority: Medium Current Visit: Yes (6) Diabetes mellitus type 1, uncontrolled, with complications SNOMED Code(s): 77305744, 115870966 ICD Code: E10.8 - TYPE 1 DIABETES MELLITUS WITH UNSPECIFIED COMPLICATIONS; E10.65 - TYPE 1 DIABETES MELLITUS WITH HYPERGLYCEMIA Status: Chronic Priority: Medium Current Visit: Yes (7) Dehydration SNOMED Code(s): 81139964 ICD Code: E86.0 - DEHYDRATION Status: Acute Priority: High Current Visit: Yes Problem List Initiated/Reviewed/Updated: Yes Orders Last 24hrs: Active Orders 24 hr Category Date Time Status Admission Status [Patient Status] [ADT] Stat ADT 04/22/19 13:29 Active Blood Glucose Check, Bedside [RC] ONETIME Care 04/22/19 11:20 Active EKG Documentation Completion [RC] STAT Care 04/22/19 11:22 Active CULTURE BLOOD [BC] Stat Lab 04/22/19 13:26 Ordered CULTURE BLOOD [BC] Stat Lab 04/22/19 13:26 Ordered CULTURE URINE [RM] Stat Lab 04/22/19 12:50 Received Levofloxacin/Dextrose 5%-Water [Levaquin in D5W 750 MG/ Med 04/22/19 13:26 Active 150 ML] 750 mg Premix Bag 1 bag IV ONETIME Sodium Chloride 0.9% [Normal Saline] 1,000 ml Med 04/22/19 12:48 Active IV .Bolus Sodium Chloride 0.9% [Saline Flush] Med 04/22/19 11:15 Active 10 ml FLUSH ASDIRECTED PRN Sodium Chloride 0.9% [Saline Flush] Med 04/22/19 11:15 Active 2.5 ml FLUSH ASDIRECTED PRN Blood Culture x2 Reflex Set [OM.PC] Stat Ot 04/22/19 13:26 Ordered Saline Lock Insert [OM.PC] Stat Ot 04/22/19 11:15 Ordered Medication Orders Sodium Chloride (Normal Saline) 1,000 mls @ 999 mls/hr IV .Bolus ONE Stop: 04/22/19 13:48 Last Admin: 04/22/19 12:49 Dose: 999 mls/hr Levofloxacin/Dextrose 750 mg/ (Premix) 150 mls @ 100 mls/hr IV ONETIME ONE Stop: 04/22/19 14:55 Sodium Chloride (Saline Flush) 10 ml FLUSH ASDIRECTED PRN PRN Reason: Keep Vein Open Sodium Chloride (Saline Flush) 2.5 ml FLUSH ASDIRECTED PRN PRN Reason: Keep Vein Open Assessment/Plan Comment:: The patient is a 33-year-old lady with complicated type 1 diabetes associated with gastroparesis and neuropathy. The patient had been admitted secondary to dehydration predominantly as well as pyelonephritis. The patient has a history of allergies to cephalosporins and as a result of this the patient will be kept on Levaquin 500 mg IV daily. I've ordered laboratory testings to help exclude chronic kidney disease versus acute renal failure. The patient will also be anticoagulated with the use of heparin for DVT prophylaxis. I kept the patient on insulin 3 times a day before meals and on Accu-Cheks 3 times a day and before meals. The patient has had previously that Carafate and Zofran work to help with her diabetic gastroparesis. I've also ordered a hemoglobin A1c although I suspect this will be high. The patient has been consulted with special educator. Cultures are currently pending. I've also ordered repeat laboratory studies for the morning. The patient has been encouraged to ambulate. The patient will also have a 14 mg NicoDerm transdermal patch to help with smoking withdrawal symptoms. The patient should be appropriate for discharge in 1-2 days.
[2019-04-22] MEDS ORDERED: Ondansetron 4 MG Tab.DIS PO PRN (13:46)
[2019-04-22] MEDS ORDERED: Temazepam 15 MG Cap PO PRN (13:46)
[2019-04-22] MEDS ORDERED: Sodium Chloride 0.9% 1,000 ML IV SCH (14:00)
[2019-04-22] MEDS ORDERED: Nicotine 14 MG/24 Hr Patch TRDERM SCH (14:00)
[2019-04-22] MEDS ORDERED: Heparin Sodium 5,000 Units/ML Vial SUBCUT SCH (14:00)
[2019-04-22 14:18] LABS: HEMOGLOBIN A1C 12.4 % (4.5-6.2)
[2019-04-22] MEDS ORDERED: Insulin Aspart 100 Units/ML 3 ML Pen SUBCUT SCH (17:00)
[2019-04-22] MEDS ORDERED: Sucralfate 1 GM Tab PO SCH (17:00)
[2019-04-22] MEDS ORDERED: oxyCODONE 5 MG Tab PO PRN (17:59)
[2019-04-22] MEDS ORDERED: QUEtiapine 100 MG Tab PO SCH (21:00)
[2019-04-22] MEDS ORDERED: LITHIUM ASPARTATE PO SCH (21:00)
[2019-04-23] MEDS ORDERED: Levofloxacin/Dextrose 5%-Water 500 MG in Premix Bag 1 BAG IV SCH (09:00)
== END 2019-04-22 20:00 | disposition left against medical advice (07) ==
LOC: MW.ED 11:00 → EEVIPCON 13:42 → MW.MS 13:42
PROVIDERS: ADMIT Internal Medicine; ATTEND Internal Medicine
DX: N12 Tubulo-interstitial nephritis, not specified as acute or chronic (principal); E10.43 Type 1 diabetes mellitus with diabetic autonomic (poly)neuropathy; E10.65 Type 1 diabetes mellitus with hyperglycemia; K31.84 Gastroparesis; R74.0 Nonspecific elevation of levels of transaminase and lactic acid dehydrogenase [LDH]; J45.909 Unspecified asthma, uncomplicated; E86.0 Dehydration; R42 Dizziness and giddiness; M19.90 Unspecified osteoarthritis, unspecified site; F41.9 Anxiety disorder, unspecified; F25.0 Schizoaffective disorder, bipolar type; F17.210 Nicotine dependence, cigarettes, uncomplicated; Z88.6 Allergy status to analgesic agent; Z88.5 Allergy status to narcotic agent; Z88.1 Allergy status to other antibiotic agents; Z79.899 Other long term (current) drug therapy; Z79.4 Long term (current) use of insulin
CPT/HCPCS: 36415; 80053; 81001; 81025; 82803; 82962; 83036; 83690; 85025; 87040; 87086; 87088; 87186; 93005; 96361; 96365; 96375; 99285; A9270; G0378; J1200; J1642; J1815; J1956; J2270; J7040

== ENCOUNTER 2019-05-08 06:12 | Observation (INO) | payer MEDICAID ==
[2019-05-08] MEDS ORDERED: Sodium Chloride 0.9% 10 ML Syringe FLUSH PRN (06:35)
[2019-05-08] MEDS ORDERED: Sodium Chloride 0.9% 2.5 ML Syringe FLUSH PRN (06:35)
[2019-05-08 07:15] LABS: CARBON DIOXIDE,CO2 21.7 mmol/L (21.0-32.0); POTASSIUM,K 4.6 mmol/L (3.5-5.1)
[2019-05-08] MEDS ORDERED: Insulin Regular, Human 100 Units/ML 10 ML Vial IVPUSH ONE (07:15)
[2019-05-08] MEDS ORDERED: Insulin Regular, Human 100 Units/ML 10 ML Vial IV ONE ×2 (07:16→09:16)
[2019-05-08] MEDS ORDERED: Sodium Chloride 0.9% 1,000 ML IV ONE ×3 (07:19→12:22)
--- NOTE | 2019-05-08 07:21 | EDM.PDOC ---
ED HPI GENERAL MEDICAL PROBLEM - General Chief Complaint: General Stated Complaint: DISCOLORED STOOL Time Seen by Provider: 05/08/19 07:00 Source of Information: Reports: Patient History Limitations: Reports: No Limitations - History of Present Illness INITIAL COMMENTS - FREE TEXT/NARRATIVE: History of present illness: []Patient is an insulin-dependent diabetic that has had a few days of white pasty stools, abdominal pain and swelling and increase glucose. She had one episode of vomiting 4 days ago but has not had vomiting since. She is passing gas and having her last bowel movement last night. She denies any fevers or chills Review of systems: As per history of present illness and below otherwise all systems reviewed and negative. Past medical history: As per history of present illness and as reviewed below otherwise noncontributory. Surgical history: As per history of present illness and as reviewed below otherwise noncontributory. Social history: No reported history of drug or alcohol abuse. Family history: As per history of present illness and as reviewed below otherwise noncontributory. Physical exam: General: Well developed, well nourished in NAD HEENT: Atraumatic, normocephalic, pupils reactive, negative for conjunctival pallor or scleral icterus, mucous membranes moist, throat clear, neck supple, nontender, trachea midline. Lungs: Clear to auscultation, breath sounds equal bilaterally, chest nontender. Heart: S1S2, regular, negative for clicks, rubs, or JVD. Abdomen: NABS, tympanitic to percussion, no fluid wave, Soft, distended, mild tenderness throughout rebound or guarding. Negative for masses or hepatosplenomegaly. Negative for costovertebral tenderness. Pelvis: Stable nontender. Genitourinary: Deferred. Rectal: Deferred. Extremities: Atraumatic, negative for cords or calf pain. Neurovascular unremarkable. Neuro: Awake, alert, oriented. Cranial nerves II through XII unremarkable. Cerebellum unremarkable. Motor and sensory unremarkable throughout. Exam nonfocal. Skin:warm and dry Diagnostics: + Glucose, CBC, chemistry, lipase, serum ketones, abdomen ultrasound UA, test Therapeutics: IV hydration, insulin, morphine, Benadryl, Levsin ED Course: Stable, Impression: Controlled diabetes, Gastroparesis, elevated LFTs, Prescriptions: Plan: patient will be admitted for IV hydration, glucose control and further workup. Definitive disposition and diagnosis as appropriate pending reevaluation and review of above. Abdomen Pain Score (Numeric/FACES): 10 - Related Data Allergies Allergy/AdvReac Type Severity Reaction Status Date / Time acetaminophen [From Tylenol] Allergy Other Verified 05/08/19 11:06 aspirin Allergy Other Verified 05/08/19 11:06 buprenorphine [From Buprenex] Allergy Hallucinati Verified 05/08/19 11:06 ons butorphanol [From Stadol] Allergy Hallucinati Verified 05/08/19 11:06 ons ceftriaxone [From Rocephin] Allergy Hives Verified 05/08/19 11:06 cephalexin [From Keflex] Allergy Hallucinati Verified 05/08/19 11:06 ons fentanyl Allergy Hallucinati Verified 05/08/19 11:06 ons hydromorphone [From Dilaudid] Allergy Hives Verified 05/08/19 11:06 ketorolac [From Toradol] Allergy Hallucinati Verified 05/08/19 11:06 ons metoclopramide [From Reglan] Allergy Seizure Verified 05/08/19 11:06 morphine Allergy Itching Verified 05/08/19 10:09 tramadol Allergy Hallucinati Verified 05/08/19 11:06 ons Home Meds: Home Meds Albuterol [Proventil Neb Soln] 2 puff INH ASDIRECTED PRN 04/22/19 [History] Insulin Degludec [Tresiba] 15 units INJECT ACDINNER 04/22/19 [History] Insulin Degludec [Tresiba] 25 units INJECT ACBREAKFAST 04/22/19 [History] Insulin Lispro [HumaLOG] 1 dose INJECT ASDIRECTED 04/22/19 [History] LORazepam [Ativan] 1 mg PO ASDIRECTED PRN 04/22/19 [History] [place] Aspartate [Lithate] 300 mg PO BID 04/22/19 [History] Past Medical History HEENT History: Reports: Impaired Vision Other HEENT History: 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 Cardiovascular History: Reports: Other (See Below) Other Cardiovascular History: PAD Respiratory History: Reports: Asthma, Bronchitis, Recurrent, Pneumonia, Recurrent Gastrointestinal History: Reports: Other (See Below) Other Gastrointestinal History: Gastroparesis Genitourinary History: Reports: Renal Calculus, UTI, Recurrent SPOUT LINER History: Reports: , Other (See Below) Other SPOUT LINER History: coma for 8 days due to UTI/spesis Musculoskeletal History: Reports: Osteoarthritis, Other (See Below) Other Musculoskeletal History: muscular atrophy Neurological History: Reports: Neuropathy, Diabetic Psychiatric History: Reports: Anxiety, Bipolar, Depression, Other (See Below) Other Psychiatric History: Schizoaffect disease, manic depressive Endocrine/Metabolic History: Reports: Diabetes, Type I Hematologic History: Reports: B12 Deficiency, Other (See Below) Other Hematologic History: hyponatremia Immunologic History: Reports: None Oncologic (Cancer) History: Reports: None Dermatologic History: Reports: Psoriasis - Infectious Disease History Infectious Disease History: Reports: None - Past Surgical History HEENT Surgical History: Reports: None Cardiovascular Surgical History: Reports: Other (See Below) Other Cardiovascular Surgeries/Procedures: PAD corrected at age 4 Respiratory Surgical History: Reports: None GI Surgical History: Reports: Cholecystectomy, Esophageal Dilatation Female Surgical History: Reports: D&C, Other (See Below) Endocrine Surgical History: Reports: None Neurological Surgical History: Reports: None Musculoskeletal Surgical History: Reports: None Oncologic Surgical History: Reports: None Dermatological Surgical History: Reports: None Social & Family History - Family History Family Medical History: Noncontributory - Tobacco Use Smoking Status *Q: Unknown Ever Smoked - Caffeine Use Caffeine Use: Reports: Coffee, Soda Caffeine Use Comment: 2 pots of coffee today; 3 pops a day - Recreational Drug Use Recreational Drug Use: No - Living Situation & Occupation Living situation: Reports: with Significant Other Occupation: Unemployed ED ROS GENERAL - Review of Systems Review Of Systems: See Below ED EXAM, GI/ABD - Physical Exam Exam: See Below Course - Vital Signs Last Recorded V/S: Last Vital Signs Temp 98.1 F 05/08/19 10:01 Pulse 83 05/08/19 10:27 Resp 16 05/08/19 10:27 BP 117/78 05/08/19 10:27 Pulse Ox 100 05/08/19 10:27 - Orders/Labs/Meds Orders: Active Orders 24 hr Category Date Time Status Patient Status [ADT] Stat ADT 05/08/19 09:25 Active Blood Glucose Check, Bedside [RC] ONETIME Care 05/08/19 06:39 Active Implanted Port Access [RC] ASDIRECTED Care 05/08/19 06:39 Active Abdomen Comp [US] Stat Exams 05/08/19 07:30 Taken Labs: Laboratory Tests 05/08/19 05/08/19 05/08/19 Range/Units 06:20 06:20 06:50 WBC 7.43 (4.0-11.0) K/uL RBC 4.15 L (4.30-5.90) M/uL Hgb 12.3 (12.0-16.0) g/dL Hct 36.5 (36.0-46.0) % MCV 88.0 (80.0-98.0) fL MCH 29.6 (27.0-32.0) pg MCHC 33.7 (31.0-37.0) g/dL RDW Std Deviation 45.0 (28.0-62.0) fl RDW Coeff of Krystina 14 (11.0-15.0) % Plt Count 269 (150-400) K/uL MPV 12.30 H (7.40-12.00) fL Neut % (Auto) 52.6 (48.0-80.0) % Lymph % (Auto) 33.0 (16.0-40.0) % [place] % (Auto) 10.5 (0.0-15.0) % Eos % (Auto) 3.4 (0.0-7.0) % Baso % (Auto) 0.5 (0.0-1.5) % Neut # (Auto) 3.9 (1.4-5.7) K/uL Lymph # (Auto) 2.5 H (0.6-2.4) K/uL [place] # (Auto) 0.8 (0.0-0.8) K/uL Eos # (Auto) 0.3 (0.0-0.7) K/uL Baso # (Auto) 0.0 (0.0-0.1) K/uL INR Sodium (136-145) mmol/L Potassium (3.5-5.1) mmol/L Chloride (98-107) mmol/L Carbon Dioxide (21.0-32.0) mmol/L BUN (7.0-18.0) mg/dL Creatinine (0.6-1.0) mg/dL Est Cr Clr Drug Dosing mL/min Estimated GFR (MDRD) ml/min Glucose (74-106) mg/dL POC Glucose (60-110) mg/dL Calcium (8.5-10.1) mg/dL Total Bilirubin (0.2-1.0) mg/dL AST (15-37) IU/L ALT (14-63) IU/L Alkaline Phosphatase (46-116) U/L Total Protein (6.4-8.2) g/dL Albumin (3.4-5.0) g/dL Globulin (2.6-4.0) g/dL Albumin/Globulin Ratio (0.9-1.6) Lipase (73-393) U/L Urine Color YELLOW Urine Appearance CLEAR Urine pH 6.0 (5.0-8.0) Ur Specific [place] <= 1.005 (1.001-1.035) Urine Protein NEGATIVE (NEGATIVE) mg/dL Urine Glucose (UA) >=1000 (NEGATIVE) mg/dL Urine Ketones NEGATIVE (NEGATIVE) mg/dL Urine Occult Blood TRACE-INTACT H (NEGATIVE) Urine Nitrite NEGATIVE (NEGATIVE) Urine Bilirubin NEGATIVE (NEGATIVE) Urine Urobilinogen 0.2 (<2.0) EU/dL Ur Leukocyte Esterase NEGATIVE (NEGATIVE) Urine RBC 0-1 (0-2/HPF) Urine WBC 0-1 (0-5/HPF) Ur Epithelial Cells RARE (NONE-FEW) Urine Bacteria RARE (NEGATIVE) Urine HCG, Qual NEGATIVE (NEGATIVE) Ketones (NEG) 05/08/19 05/08/19 05/08/19 Range/Units 06:50 06:50 06:50 WBC (4.0-11.0) K/uL RBC (4.30-5.90) M/uL Hgb (12.0-16.0) g/dL Hct (36.0-46.0) % MCV (80.0-98.0) fL MCH (27.0-32.0) pg MCHC (31.0-37.0) g/dL RDW Std Deviation (28.0-62.0) fl RDW Coeff of Krystina (11.0-15.0) % Plt Count (150-400) K/uL MPV (7.40-12.00) fL Neut % (Auto) (48.0-80.0) % Lymph % (Auto) (16.0-40.0) % [place] % (Auto) (0.0-15.0) % Eos % (Auto) (0.0-7.0) % Baso % (Auto) (0.0-1.5) % Neut # (Auto) (1.4-5.7) K/uL Lymph # (Auto) (0.6-2.4) K/uL [place] # (Auto) (0.0-0.8) K/uL Eos # (Auto) (0.0-0.7) K/uL Baso # (Auto) (0.0-0.1) K/uL INR 0.86 Sodium 116 L* (136-145) mmol/L Potassium 4.6 (3.5-5.1) mmol/L Chloride 84 L (98-107) mmol/L Carbon Dioxide 21.7 (21.0-32.0) mmol/L BUN 24 H (7.0-18.0) mg/dL Creatinine 1.3 H (0.6-1.0) mg/dL Est Cr Clr Drug Dosing 55.90 mL/min Estimated GFR (MDRD) 47.5 ml/min Glucose 1161 H* (74-106) mg/dL POC Glucose (60-110) mg/dL Calcium 8.9 (8.5-10.1) mg/dL Total Bilirubin 0.3 (0.2-1.0) mg/dL AST 149 H (15-37) IU/L ALT 186 H (14-63) IU/L Alkaline Phosphatase 216 H (46-116) U/L Total Protein 7.1 (6.4-8.2) g/dL Albumin 3.7 (3.4-5.0) g/dL Globulin 3.4 (2.6-4.0) g/dL Albumin/Globulin Ratio 1.1 (0.9-1.6) Lipase 281 (73-393) U/L Urine Color Urine Appearance Urine pH (5.0-8.0) Ur Specific [place] (1.001-1.035) Urine Protein (NEGATIVE) mg/dL Urine Glucose (UA) (NEGATIVE) mg/dL Urine Ketones (NEGATIVE) mg/dL Urine Occult Blood (NEGATIVE) Urine Nitrite (NEGATIVE) Urine Bilirubin (NEGATIVE) Urine Urobilinogen (<2.0) EU/dL Ur Leukocyte Esterase (NEGATIVE) Urine RBC (0-2/HPF) Urine WBC (0-5/HPF) Ur Epithelial Cells (NONE-FEW) Urine Bacteria (NEGATIVE) Urine HCG, Qual (NEGATIVE) Ketones NEGATIVE (NEG) 05/08/19 05/08/19 05/08/19 Range/Units 07:01 07:03 08:01 WBC (4.0-11.0) K/uL RBC (4.30-5.90) M/uL Hgb (12.0-16.0) g/dL Hct (36.0-46.0) % MCV (80.0-98.0) fL MCH (27.0-32.0) pg MCHC (31.0-37.0) g/dL RDW Std Deviation (28.0-62.0) fl RDW Coeff of Krystina (11.0-15.0) % Plt Count (150-400) K/uL MPV (7.40-12.00) fL Neut % (Auto) (48.0-80.0) % Lymph % (Auto) (16.0-40.0) % [place] % (Auto) (0.0-15.0) % Eos % (Auto) (0.0-7.0) % Baso % (Auto) (0.0-1.5) % Neut # (Auto) (1.4-5.7) K/uL Lymph # (Auto) (0.6-2.4) K/uL [place] # (Auto) (0.0-0.8) K/uL Eos # (Auto) (0.0-0.7) K/uL Baso # (Auto) (0.0-0.1) K/uL INR Sodium (136-145) mmol/L Potassium (3.5-5.1) mmol/L Chloride (98-107) mmol/L Carbon Dioxide (21.0-32.0) mmol/L BUN (7.0-18.0) mg/dL Creatinine (0.6-1.0) mg/dL Est Cr Clr Drug Dosing mL/min Estimated GFR (MDRD) ml/min Glucose (74-106) mg/dL POC Glucose > 500 H > 500 H > 500 H (60-110) mg/dL Calcium (8.5-10.1) mg/dL Total Bilirubin (0.2-1.0) mg/dL AST (15-37) IU/L ALT (14-63) IU/L Alkaline Phosphatase (46-116) U/L Total Protein (6.4-8.2) g/dL Albumin (3.4-5.0) g/dL Globulin (2.6-4.0) g/dL Albumin/Globulin Ratio (0.9-1.6) Lipase (73-393) U/L Urine Color Urine Appearance Urine pH (5.0-8.0) Ur Specific [place] (1.001-1.035) Urine Protein (NEGATIVE) mg/dL Urine Glucose (UA) (NEGATIVE) mg/dL Urine Ketones (NEGATIVE) mg/dL Urine Occult Blood (NEGATIVE) Urine Nitrite (NEGATIVE) Urine Bilirubin (NEGATIVE) Urine Urobilinogen (<2.0) EU/dL Ur Leukocyte Esterase (NEGATIVE) Urine RBC (0-2/HPF) Urine WBC (0-5/HPF) Ur Epithelial Cells (NONE-FEW) Urine Bacteria (NEGATIVE) Urine HCG, Qual (NEGATIVE) Ketones (NEG) 05/08/19 Range/Units 09:21 WBC (4.0-11.0) K/uL RBC (4.30-5.90) M/uL Hgb (12.0-16.0) g/dL Hct (36.0-46.0) % MCV (80.0-98.0) fL MCH (27.0-32.0) pg MCHC (31.0-37.0) g/dL RDW Std Deviation (28.0-62.0) fl RDW Coeff of Krystina (11.0-15.0) % Plt Count (150-400) K/uL MPV (7.40-12.00) fL Neut % (Auto) (48.0-80.0) % Lymph % (Auto) (16.0-40.0) % [place] % (Auto) (0.0-15.0) % Eos % (Auto) (0.0-7.0) % Baso % (Auto) (0.0-1.5) % Neut # (Auto) (1.4-5.7) K/uL Lymph # (Auto) (0.6-2.4) K/uL [place] # (Auto) (0.0-0.8) K/uL Eos # (Auto) (0.0-0.7) K/uL Baso # (Auto) (0.0-0.1) K/uL INR Sodium (136-145) mmol/L Potassium (3.5-5.1) mmol/L Chloride (98-107) mmol/L Carbon Dioxide (21.0-32.0) mmol/L BUN (7.0-18.0) mg/dL Creatinine (0.6-1.0) mg/dL Est Cr Clr Drug Dosing mL/min Estimated GFR (MDRD) ml/min Glucose (74-106) mg/dL POC Glucose > 500 H (60-110) mg/dL Calcium (8.5-10.1) mg/dL Total Bilirubin (0.2-1.0) mg/dL AST (15-37) IU/L ALT (14-63) IU/L Alkaline Phosphatase (46-116) U/L Total Protein (6.4-8.2) g/dL Albumin (3.4-5.0) g/dL Globulin (2.6-4.0) g/dL Albumin/Globulin Ratio (0.9-1.6) Lipase (73-393) U/L Urine Color Urine Appearance Urine pH (5.0-8.0) Ur Specific [place] (1.001-1.035) Urine Protein (NEGATIVE) mg/dL Urine Glucose (UA) (NEGATIVE) mg/dL Urine Ketones (NEGATIVE) mg/dL Urine Occult Blood (NEGATIVE) Urine Nitrite (NEGATIVE) Urine Bilirubin (NEGATIVE) Urine Urobilinogen (<2.0) EU/dL Ur Leukocyte Esterase (NEGATIVE) Urine RBC (0-2/HPF) Urine WBC (0-5/HPF) Ur Epithelial Cells (NONE-FEW) Urine Bacteria (NEGATIVE) Urine HCG, Qual (NEGATIVE) Ketones (NEG) Meds: Medications Discontinued Medications Generic Name Dose Route Start Last Admin Trade Name Freq PRN Reason Stop Dose Admin Diphenhydramine HCl 25 mg 05/08/19 08:23 05/08/19 08:25 Benadryl IVPUSH 05/08/19 08:24 25 mg ONETIME ONE Administration Diphenhydramine HCl Confirm 05/08/19 08:23 05/08/19 10:10 Benadryl Administered 08/10/19 08:24 Not Given Dose 50 mg .ROUTE .STK-MED ONE Hyoscyamine 0.125 mg 05/08/19 08:06 05/08/19 08:20 Hyomax-Sl SL 05/08/19 08:07 0.125 mg ONETIME ONE Administration Sodium Chloride 1,000 mls @ 999 mls/hr 05/08/19 07:19 05/08/19 07:28 Normal Saline IV 05/08/19 08:19 999 mls/hr .Bolus ONE Administration Sodium Chloride 1,000 mls @ 999 mls/hr 05/08/19 09:27 05/08/19 09:33 Normal Saline IV 05/08/19 10:27 999 mls/hr .Bolus ONE Administration Insulin Human Regular 10 unit 05/08/19 07:15 05/08/19 07:27 Novolin R IVPUSH 05/08/19 07:16 10 units ONETIME ONE Administration Protocol Insulin Human Regular 10 unit 05/08/19 07:16 05/08/19 07:33 Novolin R IV 05/08/19 07:17 Not Given ONETIME ONE Protocol Insulin Human Regular 10 unit 05/08/19 09:16 05/08/19 09:38 Novolin R IV 05/08/19 09:17 10 units ONETIME ONE Administration Protocol Morphine Sulfate 2 mg 05/08/19 08:16 05/08/19 08:20 Morphine IVPUSH 05/08/19 08:17 2 mg ONETIME ONE Administration Sodium Chloride 10 ml 05/08/19 06:35 Saline Flush FLUSH ASDIRECTED PRN Keep Vein Open Sodium Chloride 2.5 ml 05/08/19 06:35 Saline Flush FLUSH ASDIRECTED PRN Keep Vein Open Departure - Departure Time of Disposition: 11:14 Disposition: Refer to Observation Condition: Good Clinical Impression: Elevated liver enzymes Uncontrolled diabetes mellitus Qualifiers: Diabetes mellitus type: type 1 Glycemic state: with hyperglycemia Qualified Code(s): E10.65 - Type 1 diabetes mellitus with hyperglycemia - Discharge Information - My Orders Last 24 Hours: My Active Orders 05/08/19 07:30 Abdomen Comp [US] Stat 05/08/19 09:25 Patient Status [ADT] Stat - Assessment/Plan Last 24 Hours: My Active Orders 05/08/19 07:30 Abdomen Comp [US] Stat 05/08/19 09:25 Patient Status [ADT] Stat
[2019-05-08] MEDS ORDERED: Hyoscyamine 0.125 MG Tab.SL SL ONE (08:06)
[2019-05-08] MEDS ORDERED: Morphine 2 MG/ML Syringe IVPUSH ONE (08:16)
[2019-05-08] MEDS ORDERED: diphenhydrAMINE 50 MG/ML SDV ONE (08:23)
[2019-05-08] MEDS ORDERED: diphenhydrAMINE 50 MG/ML SDV IVPUSH ONE (08:23)
--- NOTE | 2019-05-08 11:11 | US ---
Indication: Abdominal distension. Elevated LFTs. Technique: Grayscale and color Doppler ultrasound of the abdomen was performed. Comparison: None Findings: The aorta, inferior vena cava, and pancreas are not well visualized due to overlying bowel gas. The liver measures 16.2 centimeters in dimension. No intrahepatic biliary ductal dilatation is identified. No patent masses are seen. No definite gallbladder is identified. The common bile duct is not appreciated. The portal vein is patent. The hepatic veins are patent. The right kidney measures 9.5 x 4.7 cm in size. No pericholecystic free fluid or hydronephrosis is identified. Normal color flow is identified to the right kidney. The left kidney measures 9.7 x 4.0 centimeters in size. No hydronephrosis is identified. No perinephric free fluid is identified. Normal color flow is identified to the left kidney. The spleen is normal measuring 8.4 cm in size. No free fluid is identified within the abdomen. Impression: Suboptimal exam due to the amount of bowel gas. However, as the areas that are able to be visualized, no definite gross visceral abnormality is identified. Dictated by Maggie See MD @ May 08 2019 11:01AM Signed by Dr. Maggie See @ May 08 2019 11:10AM
[2019-05-08] MEDS ORDERED: Albuterol 8 GM Inhaler INH PRN (12:25)
[2019-05-08] MEDS ORDERED: LORazepam 1 MG Tab PO PRN (12:25)
[2019-05-08] MEDS ORDERED: Sodium Chloride 0.9% 1,000 ML IV SCH (12:30)
--- NOTE | 2019-05-08 13:18 | CT ---
Indication: Pain and distention of abdomen. Technique: Multiple contiguous axial images were obtained from the lung bases through the symphysis pubis without intravenous contrast enhancement. Please note that all CT scans at this facility use dose modulation, iterative reconstruction, and/or weight-based dosing when appropriate to reduce radiation dose to as low as reasonably achievable. Comparison: None Findings: The lung bases are clear. The heart is normal in size. No pericardial effusion is identified. The unenhanced liver, spleen, pancreas, adrenals, and kidneys are normal. No intrahepatic biliary ductal dilatation is identified. Postsurgical changes of cholecystectomy are identified. Bilateral nonobstructive tiny renal calculi are identified. No hydronephrosis is seen. In the pelvis, the urinary bladder is distended. Moderate to large amount of stool is identified throughout the colon. No free air or free fluid is identified within the abdomen or pelvis. No lytic or blastic lesions of the spine are seen. In the mid abdomen to the right of midline, a cluster of calcifications is identified. This extends over an area of approximately 3 x 4 centimeters. This may represent calcification within the pancreatic head and can be seen with prior pancreatitis. Impression: Calcifications identified to the right of midline in the upper abdomen. Is a most likely within the pancreatic head and felt to be a sequelae of previous pancreatic disease or pancreatitis. Bilateral nonobstructing renal calculi. Moderate to large amount of stool identified within the colon. Please note that all CT scans at this facility use dose modulation, iterative reconstruction, and/or weight-based dosing when appropriate to reduce radiation dose to as low as reasonably achievable. Dictated by Maggie See MD @ May 08 2019 1:03PM Signed by Dr. Maggie See @ May 08 2019 1:16PM
[2019-05-08] MEDS ORDERED: Bisacodyl 5 MG Tab PO ONE (15:33)
[2019-05-08] MEDS ORDERED: Polyethylene Glycol 3350 Powder 17 GM Packet PO SCH (15:45)
[2019-05-08] MEDS ORDERED: Polyethylene Glycol 3350 Powder 17 GM Packet PO ONE (16:02)
[2019-05-08] MEDS ORDERED: Insulin Aspart 100 Units/ML 3 ML Pen SUBCUT SCH (17:00)
--- NOTE | 2019-05-08 17:08 | PCM.HP ---
H&P History of Present Illness - General Date of Service: 05/08/19 Admit Problem/Dx: Admission Diagnosis/Problem Admission Diagnosis/Problem Diabetes mellitus type 1 - History of Present Illness Initial Comments - Free Text/Narative: 33-year-old female presented to [facility] ER with complaints of abdominal pain, distention and white stools for the past 3-4 days. She has a PMH of type 1 DM and gastroparesis. The abdominal pain is generalized and non-focal. She states that her abdomen does become distended on occasion and will usually resolve within 1 day. She reports having 3-4 soft, white-colored bowel movements for the past 3-4 days. She normally has one bowel movement every other day. She has never had white colored stools before. She does have a history of cholecystectomy and reports having a "lipase stent" but cannot provide any further details. She recently moved to [place] from [place]. Patient denies any fevers, chills, nausea, vomiting, shortness of breath, chest pain or blood in stool. On admission, her glucose level was found to be~1000 but was not in ketoacidosis. Ultrasound was ordered and revealed increased amount of bowel gas. Urinalysis including test was negative. Patient evaluated for further evaluation and treatment. Abdomen Pain Score (Numeric/FACES): 10 - Related Data Allergies/Adverse Reactions: Allergies Allergy/AdvReac Type Severity Reaction Status Date / Time acetaminophen [From Tylenol] Allergy Other Verified 05/08/19 11:06 aspirin Allergy Other Verified 05/08/19 11:06 buprenorphine [From Buprenex] Allergy Hallucinati Verified 05/08/19 11:06 ons butorphanol [From Stadol] Allergy Hallucinati Verified 05/08/19 11:06 ons ceftriaxone [From Rocephin] Allergy Hives Verified 05/08/19 11:06 cephalexin [From Keflex] Allergy Hallucinati Verified 05/08/19 11:06 ons fentanyl Allergy Hallucinati Verified 05/08/19 11:06 ons hydromorphone [From Dilaudid] Allergy Hives Verified 05/08/19 11:06 ketorolac [From Toradol] Allergy Hallucinati Verified 05/08/19 11:06 ons metoclopramide [From Reglan] Allergy Seizure Verified 05/08/19 11:06 morphine Allergy Itching Verified 05/08/19 10:09 tramadol Allergy Hallucinati Verified 05/08/19 11:06 ons Home Medications: Home Meds Albuterol [Proventil Neb Soln] 2 puff INH ASDIRECTED PRN 04/22/19 [History] Insulin Degludec [Tresiba] 15 units INJECT ACDINNER 04/22/19 [History] Insulin Degludec [Tresiba] 25 units INJECT ACBREAKFAST 04/22/19 [History] Insulin Lispro [HumaLOG] 1 dose INJECT ASDIRECTED 04/22/19 [History] LORazepam [Ativan] 1 mg PO ASDIRECTED PRN 04/22/19 [History] Caraway Aspartate [Lithate] 300 mg PO BID 04/22/19 [History] Past Medical History HEENT History: Reports: Impaired Vision Other HEENT History: 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 Cardiovascular History: Reports: Other (See Below) Other Cardiovascular History: PAD Respiratory History: Reports: Asthma, Bronchitis, Recurrent, Pneumonia, Recurrent Gastrointestinal History: Reports: Other (See Below) Other Gastrointestinal History: Gastroparesis Genitourinary History: Reports: Renal Calculus, UTI, Recurrent [employer] History: Reports: , Other (See Below) Other OB/BYN History: coma for 8 days due to UTI/spesis Musculoskeletal History: Reports: Osteoarthritis, Other (See Below) Other Musculoskeletal History: muscular atrophy Neurological History: Reports: Neuropathy, Diabetic Psychiatric History: Reports: Anxiety, Bipolar, Depression, Other (See Below) Other Psychiatric History: Schizoaffect disease, manic depressive Endocrine/Metabolic History: Reports: Diabetes, Type I Hematologic History: Reports: B12 Deficiency, Other (See Below) Other Hematologic History: hyponatremia Immunologic History: Reports: None Oncologic (Cancer) History: Reports: None Dermatologic History: Reports: Psoriasis - Infectious Disease History Infectious Disease History: Reports: None Other Infectious Disease History: C-diff over 6 years ago; lyme disease - Past Surgical History HEENT Surgical History: Reports: None Cardiovascular Surgical History: Reports: Other (See Below) Other Cardiovascular Surgeries/Procedures: PAD corrected at age 4 Respiratory Surgical History: Reports: None GI Surgical History: Reports: Cholecystectomy, Esophageal Dilatation Female Surgical History: Reports: D&C, Other (See Below) Endocrine Surgical History: Reports: None Neurological Surgical History: Reports: None Musculoskeletal Surgical History: Reports: None Oncologic Surgical History: Reports: None Dermatological Surgical History: Reports: None Social & Family History - Family History Family Medical History: Noncontributory - Tobacco Use Smoking Status *Q: Unknown Ever Smoked Years of Tobacco use: 15 Packs/Tins Daily: 0.5 Used Tobacco, but Quit: No - Caffeine Use Caffeine Use: Reports: Coffee, Soda Caffeine Use Comment: 2 pots of coffee today; 3 pops a day - Recreational Drug Use Recreational Drug Use: No - Living Situation & Occupation Living situation: Reports: with Significant Other Occupation: Unemployed H&P Review of Systems - Review of Systems: Review Of Systems: ROS reveals no pertinent complaints other than HPI. Exam - Exam Exam: See Below - Vital Signs Vital Signs: Last Vital Signs Temp 98.2 F 05/08/19 12:00 Pulse 81 05/08/19 12:00 Resp 18 05/08/19 12:00 BP 99/66 05/08/19 12:00 Pulse Ox 97 05/08/19 12:00 Weight: 140 lb 2 oz - Exam General: Alert, Oriented, Other. No: Cooperative HEENT: Conjunctiva Clear, EOMI, Hearing Intact, Posterior Pharynx Clear, Pupils Equal Neck: Supple, Trachea Midline Lungs: Clear to Auscultation, Normal Respiratory Effort Cardiovascular: Regular Rate, Regular Rhythm GI/Abdominal Exam: Normal Bowel Sounds, Soft, Distended, Other (generalized tenderness to palpation. hyperactive bowel sounds.). No: Guarding, Rigid Extremities: Normal Inspection, No Pedal Edema Peripheral Pulses: 2+: Posterior Tibial (L), Posterior Tibial (R) Skin: Warm, Dry, Intact Neurological: Cranial Nerves Intact, Strength Equal Bilateral, Normal Speech, Normal Tone, Sensation Intact Psychiatric: Alert, Labile Mood, Agitated - Patient Data Lab Results Last 24 hrs: Laboratory Results - last 24 hr 05/08/19 05/08/19 05/08/19 Range/Units 06:20 06:20 06:20 WBC (4.0-11.0) K/uL RBC (4.30-5.90) M/uL Hgb (12.0-16.0) g/dL Hct (36.0-46.0) % MCV (80.0-98.0) fL MCH (27.0-32.0) pg MCHC (31.0-37.0) g/dL RDW Std Deviation (28.0-62.0) fl RDW Coeff of Krystina (11.0-15.0) % Plt Count (150-400) K/uL MPV (7.40-12.00) fL Neut % (Auto) (48.0-80.0) % Lymph % (Auto) (16.0-40.0) % [place] % (Auto) (0.0-15.0) % Eos % (Auto) (0.0-7.0) % Baso % (Auto) (0.0-1.5) % Neut # (Auto) (1.4-5.7) K/uL Lymph # (Auto) (0.6-2.4) K/uL [place] # (Auto) (0.0-0.8) K/uL Eos # (Auto) (0.0-0.7) K/uL Baso # (Auto) (0.0-0.1) K/uL INR Sodium (136-145) mmol/L Potassium (3.5-5.1) mmol/L Chloride (98-107) mmol/L Carbon Dioxide (21.0-32.0) mmol/L BUN (7.0-18.0) mg/dL Creatinine (0.6-1.0) mg/dL Est Cr Clr Drug Dosing mL/min Estimated GFR (MDRD) ml/min Glucose (74-106) mg/dL POC Glucose (60-110) mg/dL Calcium (8.5-10.1) mg/dL Total Bilirubin (0.2-1.0) mg/dL AST (15-37) IU/L ALT (14-63) IU/L Alkaline Phosphatase (46-116) U/L Total Protein (6.4-8.2) g/dL Albumin (3.4-5.0) g/dL Globulin (2.6-4.0) g/dL Albumin/Globulin Ratio (0.9-1.6) Lipase (73-393) U/L Urine Color YELLOW Urine Appearance CLEAR Urine pH 6.0 (5.0-8.0) Ur Specific [place] <= 1.005 (1.001-1.035) Urine Protein NEGATIVE (NEGATIVE) mg/dL Urine Glucose (UA) >=1000 (NEGATIVE) mg/dL Urine Ketones NEGATIVE (NEGATIVE) mg/dL Urine Occult Blood TRACE-INTACT H (NEGATIVE) Urine Nitrite NEGATIVE (NEGATIVE) Urine Bilirubin NEGATIVE (NEGATIVE) Urine Urobilinogen 0.2 (<2.0) EU/dL Ur Leukocyte Esterase NEGATIVE (NEGATIVE) Urine RBC 0-1 (0-2/HPF) Urine WBC 0-1 (0-5/HPF) Ur Epithelial Cells RARE (NONE-FEW) Urine Bacteria RARE (NEGATIVE) Urine HCG, Qual NEGATIVE (NEGATIVE) Urine Opiates Screen NEGATIVE (NEGATIVE) Ur Oxycodone Screen NEGATIVE (NEGATIVE) Urine Methadone Screen NEGATIVE (NEGATIVE) Ur Barbiturates Screen NEGATIVE (NEGATIVE) Ur Phencyclidine Scrn NEGATIVE (NEGATIVE) Ur Amphetamine Screen NEGATIVE (NEGATIVE) U Methamphetamines Scrn NEGATIVE (NEGATIVE) U Benzodiazepines Scrn NEGATIVE (NEGATIVE) U Cocaine Metab Screen NEGATIVE (NEGATIVE) U Marijuana (THC) Screen NEGATIVE (NEGATIVE) Ketones (NEG) 05/08/19 05/08/19 05/08/19 Range/Units 06:50 06:50 06:50 WBC 7.43 (4.0-11.0) K/uL RBC 4.15 L (4.30-5.90) M/uL Hgb 12.3 (12.0-16.0) g/dL Hct 36.5 (36.0-46.0) % MCV 88.0 (80.0-98.0) fL MCH 29.6 (27.0-32.0) pg MCHC 33.7 (31.0-37.0) g/dL RDW Std Deviation 45.0 (28.0-62.0) fl RDW Coeff of Krystina 14 (11.0-15.0) % Plt Count 269 (150-400) K/uL MPV 12.30 H (7.40-12.00) fL Neut % (Auto) 52.6 (48.0-80.0) % Lymph % (Auto) 33.0 (16.0-40.0) % [place] % (Auto) 10.5 (0.0-15.0) % Eos % (Auto) 3.4 (0.0-7.0) % Baso % (Auto) 0.5 (0.0-1.5) % Neut # (Auto) 3.9 (1.4-5.7) K/uL Lymph # (Auto) 2.5 H (0.6-2.4) K/uL [place] # (Auto) 0.8 (0.0-0.8) K/uL Eos # (Auto) 0.3 (0.0-0.7) K/uL Baso # (Auto) 0.0 (0.0-0.1) K/uL INR 0.86 Sodium 116 L* (136-145) mmol/L Potassium 4.6 (3.5-5.1) mmol/L Chloride 84 L (98-107) mmol/L Carbon Dioxide 21.7 (21.0-32.0) mmol/L BUN 24 H (7.0-18.0) mg/dL Creatinine 1.3 H (0.6-1.0) mg/dL Est Cr Clr Drug Dosing 55.90 mL/min Estimated GFR (MDRD) 47.5 ml/min Glucose 1161 H* (74-106) mg/dL POC Glucose (60-110) mg/dL Calcium 8.9 (8.5-10.1) mg/dL Total Bilirubin 0.3 (0.2-1.0) mg/dL AST 149 H (15-37) IU/L ALT 186 H (14-63) IU/L Alkaline Phosphatase 216 H (46-116) U/L Total Protein 7.1 (6.4-8.2) g/dL Albumin 3.7 (3.4-5.0) g/dL Globulin 3.4 (2.6-4.0) g/dL Albumin/Globulin Ratio 1.1 (0.9-1.6) Lipase 281 (73-393) U/L Urine Color Urine Appearance Urine pH (5.0-8.0) Ur Specific [place] (1.001-1.035) Urine Protein (NEGATIVE) mg/dL Urine Glucose (UA) (NEGATIVE) mg/dL Urine Ketones (NEGATIVE) mg/dL Urine Occult Blood (NEGATIVE) Urine Nitrite (NEGATIVE) Urine Bilirubin (NEGATIVE) Urine Urobilinogen (<2.0) EU/dL Ur Leukocyte Esterase (NEGATIVE) Urine RBC (0-2/HPF) Urine WBC (0-5/HPF) Ur Epithelial Cells (NONE-FEW) Urine Bacteria (NEGATIVE) Urine HCG, Qual (NEGATIVE) Urine Opiates Screen (NEGATIVE) Ur Oxycodone Screen (NEGATIVE) Urine Methadone Screen (NEGATIVE) Ur Barbiturates Screen (NEGATIVE) Ur Phencyclidine Scrn (NEGATIVE) Ur Amphetamine Screen (NEGATIVE) U Methamphetamines Scrn (NEGATIVE) U Benzodiazepines Scrn (NEGATIVE) U Cocaine Metab Screen (NEGATIVE) U Marijuana (THC) Screen (NEGATIVE) Ketones (NEG) 05/08/19 05/08/19 05/08/19 Range/Units 06:50 07:01 07:03 WBC (4.0-11.0) K/uL RBC (4.30-5.90) M/uL Hgb (12.0-16.0) g/dL Hct (36.0-46.0) % MCV (80.0-98.0) fL MCH (27.0-32.0) pg MCHC (31.0-37.0) g/dL RDW Std Deviation (28.0-62.0) fl RDW Coeff of Krsytina (11.0-15.0) % Plt Count (150-400) K/uL MPV (7.40-12.00) fL Neut % (Auto) (48.0-80.0) % Lymph % (Auto) (16.0-40.0) % [place] % (Auto) (0.0-15.0) % Eos % (Auto) (0.0-7.0) % Baso % (Auto) (0.0-1.5) % Neut # (Auto) (1.4-5.7) K/uL Lymph # (Auto) (0.6-2.4) K/uL [place] # (Auto) (0.0-0.8) K/uL Eos # (Auto) (0.0-0.7) K/uL Baso # (Auto) (0.0-0.1) K/uL INR Sodium (136-145) mmol/L Potassium (3.5-5.1) mmol/L Chloride (98-107) mmol/L Carbon Dioxide (21.0-32.0) mmol/L BUN (7.0-18.0) mg/dL Creatinine (0.6-1.0) mg/dL Est Cr Clr Drug Dosing mL/min Estimated GFR (MDRD) ml/min Glucose (74-106) mg/dL POC Glucose > 500 H > 500 H (60-110) mg/dL Calcium (8.5-10.1) mg/dL Total Bilirubin (0.2-1.0) mg/dL AST (15-37) IU/L ALT (14-63) IU/L Alkaline Phosphatase (46-116) U/L Total Protein (6.4-8.2) g/dL Albumin (3.4-5.0) g/dL Globulin (2.6-4.0) g/dL Albumin/Globulin Ratio (0.9-1.6) Lipase (73-393) U/L Urine Color Urine Appearance Urine pH (5.0-8.0) Ur Specific [place] (1.001-1.035) Urine Protein (NEGATIVE) mg/dL Urine Glucose (UA) (NEGATIVE) mg/dL Urine Ketones (NEGATIVE) mg/dL Urine Occult Blood (NEGATIVE) Urine Nitrite (NEGATIVE) Urine Bilirubin (NEGATIVE) Urine Urobilinogen (<2.0) EU/dL Ur Leukocyte Esterase (NEGATIVE) Urine RBC (0-2/HPF) Urine WBC (0-5/HPF) Ur Epithelial Cells (NONE-FEW) Urine Bacteria (NEGATIVE) Urine HCG, Qual (NEGATIVE) Urine Opiates Screen (NEGATIVE) Ur Oxycodone Screen (NEGATIVE) Urine Methadone Screen (NEGATIVE) Ur Barbiturates Screen (NEGATIVE) Ur Phencyclidine Scrn (NEGATIVE) Ur Amphetamine Screen (NEGATIVE) U Methamphetamines Scrn (NEGATIVE) U Benzodiazepines Scrn (NEGATIVE) U Cocaine Metab Screen (NEGATIVE) U Marijuana (THC) Screen (NEGATIVE) Ketones NEGATIVE (NEG) 05/08/19 05/08/19 05/08/19 Range/Units 08:01 09:21 10:06 WBC (4.0-11.0) K/uL RBC (4.30-5.90) M/uL Hgb (12.0-16.0) g/dL Hct (36.0-46.0) % MCV (80.0-98.0) fL MCH (27.0-32.0) pg MCHC (31.0-37.0) g/dL RDW Std Deviation (28.0-62.0) fl RDW Coeff of Krystina (11.0-15.0) % Plt Count (150-400) K/uL MPV (7.40-12.00) fL Neut % (Auto) (48.0-80.0) % Lymph % (Auto) (16.0-40.0) % [place] % (Auto) (0.0-15.0) % Eos % (Auto) (0.0-7.0) % Baso % (Auto) (0.0-1.5) % Neut # (Auto) (1.4-5.7) K/uL Lymph # (Auto) (0.6-2.4) K/uL [place] # (Auto) (0.0-0.8) K/uL Eos # (Auto) (0.0-0.7) K/uL Baso # (Auto) (0.0-0.1) K/uL INR Sodium (136-145) mmol/L Potassium (3.5-5.1) mmol/L Chloride (98-107) mmol/L Carbon Dioxide (21.0-32.0) mmol/L BUN (7.0-18.0) mg/dL Creatinine (0.6-1.0) mg/dL Est Cr Clr Drug Dosing mL/min Estimated GFR (MDRD) ml/min Glucose (74-106) mg/dL POC Glucose > 500 H > 500 H 482 H (60-110) mg/dL Calcium (8.5-10.1) mg/dL Total Bilirubin (0.2-1.0) mg/dL AST (15-37) IU/L ALT (14-63) IU/L Alkaline Phosphatase (46-116) U/L Total Protein (6.4-8.2) g/dL Albumin (3.4-5.0) g/dL Globulin (2.6-4.0) g/dL Albumin/Globulin Ratio (0.9-1.6) Lipase (73-393) U/L Urine Color Urine Appearance Urine pH (5.0-8.0) Ur Specific [place] (1.001-1.035) Urine Protein (NEGATIVE) mg/dL Urine Glucose (UA) (NEGATIVE) mg/dL Urine Ketones (NEGATIVE) mg/dL Urine Occult Blood (NEGATIVE) Urine Nitrite (NEGATIVE) Urine Bilirubin (NEGATIVE) Urine Urobilinogen (<2.0) EU/dL Ur Leukocyte Esterase (NEGATIVE) Urine RBC (0-2/HPF) Urine WBC (0-5/HPF) Ur Epithelial Cells (NONE-FEW) Urine Bacteria (NEGATIVE) Urine HCG, Qual (NEGATIVE) Urine Opiates Screen (NEGATIVE) Ur Oxycodone Screen (NEGATIVE) Urine Methadone Screen (NEGATIVE) Ur Barbiturates Screen (NEGATIVE) Ur Phencyclidine Scrn (NEGATIVE) Ur Amphetamine Screen (NEGATIVE) U Methamphetamines Scrn (NEGATIVE) U Benzodiazepines Scrn (NEGATIVE) U Cocaine Metab Screen (NEGATIVE) U Marijuana (THC) Screen (NEGATIVE) Ketones (NEG) 05/08/19 05/08/19 05/08/19 Range/Units 11:49 12:58 14:09 WBC (4.0-11.0) K/uL RBC (4.30-5.90) M/uL Hgb (12.0-16.0) g/dL Hct (36.0-46.0) % MCV (80.0-98.0) fL MCH (27.0-32.0) pg MCHC (31.0-37.0) g/dL RDW Std Deviation (28.0-62.0) fl RDW Coeff of Krystina (11.0-15.0) % Plt Count (150-400) K/uL MPV (7.40-12.00) fL Neut % (Auto) (48.0-80.0) % Lymph % (Auto) (16.0-40.0) % [place] % (Auto) (0.0-15.0) % Eos % (Auto) (0.0-7.0) % Baso % (Auto) (0.0-1.5) % Neut # (Auto) (1.4-5.7) K/uL Lymph # (Auto) (0.6-2.4) K/uL [place] # (Auto) (0.0-0.8) K/uL Eos # (Auto) (0.0-0.7) K/uL Baso # (Auto) (0.0-0.1) K/uL INR Sodium (136-145) mmol/L Potassium (3.5-5.1) mmol/L Chloride (98-107) mmol/L Carbon Dioxide (21.0-32.0) mmol/L BUN (7.0-18.0) mg/dL Creatinine (0.6-1.0) mg/dL Est Cr Clr Drug Dosing mL/min Estimated GFR (MDRD) ml/min Glucose (74-106) mg/dL POC Glucose 324 H 327 H 286 H (60-110) mg/dL Calcium (8.5-10.1) mg/dL Total Bilirubin (0.2-1.0) mg/dL AST (15-37) IU/L ALT (14-63) IU/L Alkaline Phosphatase (46-116) U/L Total Protein (6.4-8.2) g/dL Albumin (3.4-5.0) g/dL Globulin (2.6-4.0) g/dL Albumin/Globulin Ratio (0.9-1.6) Lipase (73-393) U/L Urine Color Urine Appearance Urine pH (5.0-8.0) Ur Specific [place] (1.001-1.035) Urine Protein (NEGATIVE) mg/dL Urine Glucose (UA) (NEGATIVE) mg/dL Urine Ketones (NEGATIVE) mg/dL Urine Occult Blood (NEGATIVE) Urine Nitrite (NEGATIVE) Urine Bilirubin (NEGATIVE) Urine Urobilinogen (<2.0) EU/dL Ur Leukocyte Esterase (NEGATIVE) Urine RBC (0-2/HPF) Urine WBC (0-5/HPF) Ur Epithelial Cells (NONE-FEW) Urine Bacteria (NEGATIVE) Urine HCG, Qual (NEGATIVE) Urine Opiates Screen (NEGATIVE) Ur Oxycodone Screen (NEGATIVE) Urine Methadone Screen (NEGATIVE) Ur Barbiturates Screen (NEGATIVE) Ur Phencyclidine Scrn (NEGATIVE) Ur Amphetamine Screen (NEGATIVE) U Methamphetamines Scrn (NEGATIVE) U Benzodiazepines Scrn (NEGATIVE) U Cocaine Metab Screen (NEGATIVE) U Marijuana (THC) Screen (NEGATIVE) Ketones (NEG) 05/08/19 05/08/19 Range/Units 15:12 16:45 WBC (4.0-11.0) K/uL RBC (4.30-5.90) M/uL Hgb (12.0-16.0) g/dL Hct (36.0-46.0) % MCV (80.0-98.0) fL MCH (27.0-32.0) pg MCHC (31.0-37.0) g/dL RDW Std Deviation (28.0-62.0) fl RDW Coeff of Krystina (11.0-15.0) % Plt Count (150-400) K/uL MPV (7.40-12.00) fL Neut % (Auto) (48.0-80.0) % Lymph % (Auto) (16.0-40.0) % [place] % (Auto) (0.0-15.0) % Eos % (Auto) (0.0-7.0) % Baso % (Auto) (0.0-1.5) % Neut # (Auto) (1.4-5.7) K/uL Lymph # (Auto) (0.6-2.4) K/uL [place] # (Auto) (0.0-0.8) K/uL Eos # (Auto) (0.0-0.7) K/uL Baso # (Auto) (0.0-0.1) K/uL INR Sodium (136-145) mmol/L Potassium (3.5-5.1) mmol/L Chloride (98-107) mmol/L Carbon Dioxide (21.0-32.0) mmol/L BUN (7.0-18.0) mg/dL Creatinine (0.6-1.0) mg/dL Est Cr Clr Drug Dosing mL/min Estimated GFR (MDRD) ml/min Glucose (74-106) mg/dL POC Glucose 279 H 355 H (60-110) mg/dL Calcium (8.5-10.1) mg/dL Total Bilirubin (0.2-1.0) mg/dL AST (15-37) IU/L ALT (14-63) IU/L Alkaline Phosphatase (46-116) U/L Total Protein (6.4-8.2) g/dL Albumin (3.4-5.0) g/dL Globulin (2.6-4.0) g/dL Albumin/Globulin Ratio (0.9-1.6) Lipase (73-393) U/L Urine Color Urine Appearance Urine pH (5.0-8.0) Ur Specific [place] (1.001-1.035) Urine Protein (NEGATIVE) mg/dL Urine Glucose (UA) (NEGATIVE) mg/dL Urine Ketones (NEGATIVE) mg/dL Urine Occult Blood (NEGATIVE) Urine Nitrite (NEGATIVE) Urine Bilirubin (NEGATIVE) Urine Urobilinogen (<2.0) EU/dL Ur Leukocyte Esterase (NEGATIVE) Urine RBC (0-2/HPF) Urine WBC (0-5/HPF) Ur Epithelial Cells (NONE-FEW) Urine Bacteria (NEGATIVE) Urine HCG, Qual (NEGATIVE) Urine Opiates Screen (NEGATIVE) Ur Oxycodone Screen (NEGATIVE) Urine Methadone Screen (NEGATIVE) Ur Barbiturates Screen (NEGATIVE) Ur Phencyclidine Scrn (NEGATIVE) Ur Amphetamine Screen (NEGATIVE) U Methamphetamines Scrn (NEGATIVE) U Benzodiazepines Scrn (NEGATIVE) U Cocaine Metab Screen (NEGATIVE) U Marijuana (THC) Screen (NEGATIVE) Ketones (NEG) Result Diagrams: 05/08/19 06:50 05/08/19 06:50 Problem List Initiated/Reviewed/Updated: Yes Orders Last 24hrs: Active Orders 24 hr Category Date Time Status Patient Status [ADT] Stat ADT 05/08/19 09:25 Active Enema [RC] ASDIRECTED Care 05/08/19 15:31 Active Glucose [Blood Glucose Check, Bedside] [RC] TIDMEALS Care 05/08/19 17:00 Active Implanted Port Access [RC] ASDIRECTED Care 05/08/19 06:39 Active Clear Liquid Diet [DIET] Diet 05/08/19 Lunch Active Albuterol [Ventolin HFA] Med 05/08/19 12:25 Active 0 gm INH ASDIRECTED PRN Insulin Aspart [NovoLOG] Med 05/08/19 17:00 Active See Protocol SUBCUT TIDAC LORazepam [Ativan] Med 05/08/19 12:25 Active 1 mg PO ASDIRECTED PRN Patient's Own Medication [Ptom] Med 05/08/19 21:00 Active 1 each PO BID Sodium Chloride 0.9% [Normal Saline] 1,000 ml Med 05/08/19 12:30 Active IV STAT Medication Orders Albuterol (Ventolin Hfa) 0 gm INH ASDIRECTED PRN PRN Reason: Shortness of Breath Sodium Chloride (Normal Saline) 1,000 mls @ 150 mls/hr IV STAT DIEGO Insulin Aspart (Novolog) 0 unit SUBCUT TIDAC DIEGO; Protocol Lorazepam (Ativan) 1 mg PO ASDIRECTED PRN PRN Reason: Anxiety Caraway Aspartate [ (Lithate] 300 Mg) 1 each PO BID DIEGO Assessment/Plan Comment:: Assessment: 1. Abdominal distention. 2. Hyperglycemia. 3. Elevated liver enzymes likely secondary to fatty liver disease. 4. Type 1 diabetes mellitus. 5. Past medical history of gastroparesis, asthma, fatty liver disease, anxiety, bipolar personality disorder and depression. Plan: 1. For abdominal distention, CT abdomen ordered and revealed no obstruction but there is moderate to large amount of stool present. Will order saline enema, dulcolax and miralax. 2. For hyperglycemia, patient will be on clear liquid diet and can advance as tolerated. Will do glucose checks TID and start patient on novolog sliding scale insulin. Patient refused IV fluids repeatedly on admission to the general medical floor. 3. For past medical history, will continue with home medications.
[2019-05-08] MEDS ORDERED: LITHIUM ASPARTATE PO SCH (21:00)
== END 2019-05-08 21:30 | disposition left against medical advice (07) ==
LOC: MW.ED 06:12 → MW.MS 09:51
PROVIDERS: ADMIT Internal Medicine; ATTEND Internal Medicine
DX: E10.43 Type 1 diabetes mellitus with diabetic autonomic (poly)neuropathy (principal); K31.84 Gastroparesis; E10.65 Type 1 diabetes mellitus with hyperglycemia; R94.5 Abnormal results of liver function studies; E10.40 Type 1 diabetes mellitus with diabetic neuropathy, unspecified; R19.5 Other fecal abnormalities; J45.909 Unspecified asthma, uncomplicated; F41.9 Anxiety disorder, unspecified; F31.30 Bipolar disorder, current episode depressed, mild or moderate severity, unspecified; M19.90 Unspecified osteoarthritis, unspecified site; Z87.19 Personal history of other diseases of the digestive system; Z79.4 Long term (current) use of insulin; Z88.6 Allergy status to analgesic agent; Z88.1 Allergy status to other antibiotic agents; Z88.5 Allergy status to narcotic agent; Z88.8 Allergy status to other drugs, medicaments and biological substances
CPT/HCPCS: 36415; 74176; 76700; 80053; 80305; 81001; 81025; 82009; 82962; 83690; 85025; 85610; 96361; 96374; 96375; 99285; A9270; G0378; J1200; J1642; J1815; J2270; J7040

== ENCOUNTER 2019-05-16 12:48 | Inpatient (IN) | payer MEDICAID ==
[2019-05-16] MEDS ORDERED: Sodium Chloride 0.9% 1,000 ML IV ONE (12:49)
[2019-05-16] MEDS ORDERED: Ondansetron 4 MG/2 ML SDV IVPUSH ONE (12:49)
[2019-05-16] MEDS ORDERED: Insulin Regular, Human 100 Units/ML 10 ML Vial SUBCUT STA ×2 (12:51→13:57)
[2019-05-16] MEDS ORDERED: Insulin Regular, Human 100 Units/ML 10 ML Vial IVPUSH ONE (12:51)
--- NOTE | 2019-05-16 12:53 | EDM.PDOC ---
ED HPI GENERAL MEDICAL PROBLEM - General Chief Complaint: Abdominal Pain Stated Complaint: ABD PAIN Time Seen by Provider: 05/16/19 12:52 Source of Information: Reports: Patient - History of Present Illness INITIAL COMMENTS - FREE TEXT/NARRATIVE: HISTORY AND PHYSICAL: History of present illness: [Patient presents via EMS with abdominal pain type I diabetic with hyperglycemia greater than 600 via EMS ] Review of systems: As per history of present illness and below otherwise all systems reviewed and negative. Past medical history: As per history of present illness and as reviewed below otherwise noncontributory. Surgical history: As per history of present illness and as reviewed below otherwise noncontributory. Social history: No reported history of drug or alcohol abuse. Family history: As per history of present illness and as reviewed below otherwise noncontributory. Physical exam: HEENT: Atraumatic, normocephalic, pupils reactive, negative for conjunctival pallor or scleral icterus, mucous membranes moist, throat clear, neck supple, nontender, trachea midline. Lungs: Clear to auscultation, breath sounds equal bilaterally, chest nontender. Heart: S1S2, regular, negative for clicks, rubs, or JVD. Abdomen: Soft, nondistended, nontender. Negative for masses or hepatosplenomegaly. Negative for costovertebral tenderness. Pelvis: Stable nontender. Genitourinary: Deferred. Rectal: Deferred. Extremities: Atraumatic, negative for cords or calf pain. Neurovascular unremarkable. Neuro: Awake, alert, oriented. Cranial nerves II through XII unremarkable. Cerebellum unremarkable. Motor and sensory unremarkable throughout. Exam nonfocal. Diagnostics: [CBC CMP lipase UA hCG ABG ] Therapeutics: [Normal saline Insulin ] Impression: Hyperglycemia Dehydration Elevated liver function Abdominal pain ] Definitive disposition and diagnosis as appropriate pending reevaluation and review of above. Abdominal Pain Score (Numeric/FACES): 10 - Related Data Allergies Allergy/AdvReac Type Severity Reaction Status Date / Time acetaminophen [From Tylenol] Allergy Other Verified 05/16/19 12:53 aspirin Allergy Other Verified 05/16/19 12:53 buprenorphine [From Buprenex] Allergy Hallucinati Verified 05/16/19 12:53 ons butorphanol [From Stadol] Allergy Hallucinati Verified 05/16/19 12:53 ons ceftriaxone [From Rocephin] Allergy Hives Verified 05/16/19 12:53 cephalexin [From Keflex] Allergy Hallucinati Verified 05/16/19 12:53 ons fentanyl Allergy Hallucinati Verified 05/16/19 12:53 ons hydromorphone [From Dilaudid] Allergy Hives Verified 05/16/19 12:53 ketorolac [From Toradol] Allergy Hallucinati Verified 05/16/19 12:53 ons metoclopramide [From Reglan] Allergy Seizure Verified 05/16/19 12:53 morphine Allergy Itching Verified 05/16/19 12:53 tramadol Allergy Hallucinati Verified 05/16/19 12:53 ons Home Meds: Home Meds Albuterol [Proventil Neb Soln] 2 puff INH ASDIRECTED PRN 04/22/19 [History] Insulin Degludec [Tresiba] 15 units INJECT ACDINNER 04/22/19 [History] Insulin Degludec [Tresiba] 25 units INJECT ACBREAKFAST 04/22/19 [History] Insulin Lispro [HumaLOG] 1 dose INJECT ASDIRECTED 04/22/19 [History] LORazepam [Ativan] 1 mg PO ASDIRECTED PRN 04/22/19 [History] [place] Aspartate [Lithate] 300 mg PO BID 04/22/19 [History] Past Medical History HEENT History: Reports: Impaired Vision Other HEENT History: 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 Cardiovascular History: Reports: Other (See Below) Other Cardiovascular History: PAD Respiratory History: Reports: Asthma, Bronchitis, Recurrent, Pneumonia, Recurrent Gastrointestinal History: Reports: Other (See Below) Other Gastrointestinal History: Gastroparesis Genitourinary History: Reports: Renal Calculus, UTI, Recurrent 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: Reports: , Other (See Below) Other 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: coma for 8 days due to UTI/spesis Musculoskeletal History: Reports: Osteoarthritis, Other (See Below) Other Musculoskeletal History: muscular atrophy Neurological History: Reports: Neuropathy, Diabetic Psychiatric History: Reports: Anxiety, Bipolar, Depression, Other (See Below) Other Psychiatric History: Schizoaffect disease, manic depressive Endocrine/Metabolic History: Reports: Diabetes, Type I Hematologic History: Reports: B12 Deficiency, Other (See Below) Other Hematologic History: hyponatremia Immunologic History: Reports: None Oncologic (Cancer) History: Reports: None Dermatologic History: Reports: Psoriasis - Infectious Disease History Infectious Disease History: Reports: None Other Infectious Disease History: C-diff over 6 years ago; lyme disease - Past Surgical History HEENT Surgical History: Reports: None Cardiovascular Surgical History: Reports: Other (See Below) Other Cardiovascular Surgeries/Procedures: PAD corrected at age 4 Respiratory Surgical History: Reports: None GI Surgical History: Reports: Cholecystectomy, Esophageal Dilatation Female Surgical History: Reports: D&C, Other (See Below) Endocrine Surgical History: Reports: None Neurological Surgical History: Reports: None Musculoskeletal Surgical History: Reports: None Oncologic Surgical History: Reports: None Dermatological Surgical History: Reports: None Social & Family History - Family History Family Medical History: Noncontributory - Caffeine Use Caffeine Use: Reports: Coffee, Soda Caffeine Use Comment: 2 pots of coffee today; 3 pops a day - Living Situation & Occupation Living situation: Reports: with Significant Other Occupation: Unemployed ED ROS GENERAL - Review of Systems Review Of Systems: See Below ED EXAM, GENERAL - Physical Exam Exam: See Below Course - Vital Signs Last Recorded V/S: Last Vital Signs Temp 97.9 F 05/16/19 12:51 Pulse 99 05/16/19 12:51 Resp 18 05/16/19 12:51 BP 122/73 05/16/19 12:51 Pulse Ox 95 05/16/19 12:51 - Orders/Labs/Meds Orders: Active Orders 24 hr Category Date Time Status Accu Check [Blood Glucose Check, Bedside] [RC] ONETIME Care 05/16/19 12:50 Active EKG Documentation Completion [RC] STAT Care 05/16/19 12:55 Active Abdomen 2V AP Flat Upright [CR] Stat Exams 05/16/19 13:48 Ordered GLUCOSE,POC [POC] Routine Lab 05/16/19 13:54 Received Labs: Laboratory Tests 05/16/19 05/16/19 05/16/19 Range/Units 13:03 13:03 13:06 WBC 6.53 (4.0-11.0) K/uL RBC 4.50 (4.30-5.90) M/uL Hgb 13.1 (12.0-16.0) g/dL Hct 40.6 (36.0-46.0) % MCV 90.2 (80.0-98.0) fL MCH 29.1 (27.0-32.0) pg MCHC 32.3 (31.0-37.0) g/dL RDW Std Deviation 48.0 (28.0-62.0) fl RDW Coeff of Krystina 15 (11.0-15.0) % Plt Count 255 (150-400) K/uL MPV 12.10 H (7.40-12.00) fL Neut % (Auto) 64.0 (48.0-80.0) % Lymph % (Auto) 26.8 (16.0-40.0) % [place] % (Auto) 4.9 (0.0-15.0) % Eos % (Auto) 3.1 (0.0-7.0) % Baso % (Auto) 1.2 (0.0-1.5) % Neut # (Auto) 4.2 (1.4-5.7) K/uL Lymph # (Auto) 1.8 (0.6-2.4) K/uL [place] # (Auto) 0.3 (0.0-0.8) K/uL Eos # (Auto) 0.2 (0.0-0.7) K/uL Baso # (Auto) 0.1 (0.0-0.1) K/uL Nucleated RBC % 0.0 /100WBC Nucleated RBCs # 0 K/uL ABG pH (7.35-7.45) ABG pCO2 (35-45) mmHG ABG pO2 (75-100) mmHG ABG HCO3 (22-26) mEq/L ABG Total CO2 ABG Base Excess (-2.0-2.0) Sodium 118 L* (136-145) mmol/L Potassium 5.6 H (3.5-5.1) mmol/L Chloride 84 L (98-107) mmol/L Carbon Dioxide 25.5 (21.0-32.0) mmol/L BUN 24 H (7.0-18.0) mg/dL Creatinine 1.3 H (0.6-1.0) mg/dL Est Cr Clr Drug Dosing 55.90 mL/min Estimated GFR (MDRD) 47.5 ml/min Glucose 1125 H* (74-106) mg/dL POC Glucose > 500 H (60-110) mg/dL Calcium 8.9 (8.5-10.1) mg/dL Total Bilirubin 0.4 (0.2-1.0) mg/dL AST 574 H (15-37) IU/L ALT 363 H (14-63) IU/L Alkaline Phosphatase 296 H (46-116) U/L Total Protein 7.1 (6.4-8.2) g/dL Albumin 3.4 (3.4-5.0) g/dL Globulin 3.7 (2.6-4.0) g/dL Albumin/Globulin Ratio 0.9 (0.9-1.6) Lipase 228 (73-393) U/L Urine Color Urine Appearance Urine pH (5.0-8.0) Ur Specific [place] (1.001-1.035) Urine Protein (NEGATIVE) mg/dL Urine Glucose (UA) (NEGATIVE) mg/dL Urine Ketones (NEGATIVE) mg/dL Urine Occult Blood (NEGATIVE) Urine Nitrite (NEGATIVE) Urine Bilirubin (NEGATIVE) Urine Urobilinogen (<2.0) EU/dL Ur Leukocyte Esterase (NEGATIVE) 05/16/19 05/16/19 Range/Units 13:30 13:35 WBC (4.0-11.0) K/uL RBC (4.30-5.90) M/uL Hgb (12.0-16.0) g/dL Hct (36.0-46.0) % MCV (80.0-98.0) fL MCH (27.0-32.0) pg MCHC (31.0-37.0) g/dL RDW Std Deviation (28.0-62.0) fl RDW Coeff of Krystina (11.0-15.0) % Plt Count (150-400) K/uL MPV (7.40-12.00) fL Neut % (Auto) (48.0-80.0) % Lymph % (Auto) (16.0-40.0) % [place] % (Auto) (0.0-15.0) % Eos % (Auto) (0.0-7.0) % Baso % (Auto) (0.0-1.5) % Neut # (Auto) (1.4-5.7) K/uL Lymph # (Auto) (0.6-2.4) K/uL [place] # (Auto) (0.0-0.8) K/uL Eos # (Auto) (0.0-0.7) K/uL Baso # (Auto) (0.0-0.1) K/uL Nucleated RBC % /100WBC Nucleated RBCs # K/uL ABG pH 7.397 (7.35-7.45) ABG pCO2 37 (35-45) mmHG ABG pO2 87 (75-100) mmHG ABG HCO3 23 (22-26) mEq/L ABG Total CO2 20.7 ABG Base Excess -1.6 (-2.0-2.0) Sodium (136-145) mmol/L Potassium (3.5-5.1) mmol/L Chloride (98-107) mmol/L Carbon Dioxide (21.0-32.0) mmol/L BUN (7.0-18.0) mg/dL Creatinine (0.6-1.0) mg/dL Est Cr Clr Drug Dosing mL/min Estimated GFR (MDRD) ml/min Glucose (74-106) mg/dL POC Glucose (60-110) mg/dL Calcium (8.5-10.1) mg/dL Total Bilirubin (0.2-1.0) mg/dL AST (15-37) IU/L ALT (14-63) IU/L Alkaline Phosphatase (46-116) U/L Total Protein (6.4-8.2) g/dL Albumin (3.4-5.0) g/dL Globulin (2.6-4.0) g/dL Albumin/Globulin Ratio (0.9-1.6) Lipase (73-393) U/L Urine Color YELLOW Urine Appearance CLEAR Urine pH 7.0 (5.0-8.0) Ur Specific [place] <= 1.005 (1.001-1.035) Urine Protein NEGATIVE (NEGATIVE) mg/dL Urine Glucose (UA) >=1000 (NEGATIVE) mg/dL Urine Ketones NEGATIVE (NEGATIVE) mg/dL Urine Occult Blood NEGATIVE (NEGATIVE) Urine Nitrite NEGATIVE (NEGATIVE) Urine Bilirubin NEGATIVE (NEGATIVE) Urine Urobilinogen 0.2 (<2.0) EU/dL Ur Leukocyte Esterase NEGATIVE (NEGATIVE) Meds: Medications Discontinued Medications Generic Name Dose Route Start Last Admin Trade Name Freq PRN Reason Stop Dose Admin Diphenhydramine HCl 25 mg 05/16/19 13:18 05/16/19 13:22 Benadryl IVPUSH 05/16/19 13:19 25 mg ONETIME ONE Administration Sodium Chloride 1,000 mls @ 999 mls/hr 05/16/19 12:49 05/16/19 13:15 Normal Saline IV 05/16/19 13:49 999 mls/hr STAT ONE Administration Insulin Human Regular 10 unit 05/16/19 12:51 05/16/19 13:15 Novolin R IVPUSH 05/16/19 12:52 10 units ONETIME ONE Administration Protocol Insulin Human Regular 10 unit 05/16/19 12:51 05/16/19 13:18 Novolin R SUBCUT 05/16/19 12:52 10 unit NOW STA Administration Protocol Insulin Human Regular 10 unit 05/16/19 13:56 Novolin R IVPUSH 05/16/19 13:57 ONETIME STA Protocol Insulin Human Regular 10 unit 05/16/19 13:57 Novolin R SUBCUT 05/16/19 13:58 ONETIME STA Protocol Lorazepam 0.5 mg 05/16/19 13:12 05/16/19 13:22 Ativan IVPUSH 05/16/19 13:13 0.5 mg ONETIME ONE Administration Morphine Sulfate 2 mg 05/16/19 13:12 05/16/19 13:22 Morphine IVPUSH 05/16/19 13:13 2 mg ONETIME ONE Administration Ondansetron HCl 8 mg 05/16/19 12:49 05/16/19 13:15 Zofran IVPUSH 05/16/19 12:50 8 mg ONETIME ONE Administration Departure - Departure Time of Disposition: 14:00 Disposition: Refer to Observation Condition: Poor Clinical Impression: Hyponatremia, Hyperglycemia, Electrolyte abnormality - Discharge Information Forms: ED Department Discharge - My Orders Last 24 Hours: My Active Orders 05/16/19 12:50 Accu Check [Blood Glucose Check, Bedside] [RC] ONETIME 05/16/19 12:55 EKG Documentation Completion [RC] STAT 05/16/19 13:48 Abdomen 2V AP Flat Upright [CR] Stat 05/16/19 13:54 GLUCOSE,POC [POC] Routine - Assessment/Plan Last 24 Hours: My Active Orders 05/16/19 12:50 Accu Check [Blood Glucose Check, Bedside] [RC] ONETIME 05/16/19 12:55 EKG Documentation Completion [RC] STAT 05/16/19 13:48 Abdomen 2V AP Flat Upright [CR] Stat 05/16/19 13:54 GLUCOSE,POC [POC] Routine
[2019-05-16] MEDS ORDERED: LORazepam 2 MG/ML SDV IVPUSH ONE (13:12)
[2019-05-16] MEDS ORDERED: Morphine 2 MG/ML Syringe IVPUSH ONE ×2 (13:12→14:45)
[2019-05-16] MEDS ORDERED: diphenhydrAMINE 50 MG/ML SDV IVPUSH ONE (13:18)
--- NOTE | 2019-05-16 13:43 | CR ---
INDICATION: Abdominal pain. TECHNIQUE: Upright portable AP image of the chest. COMPARISON: None. FINDINGS: Lungs and pleural space is clear. Heart size and pulmonary vasculature within normal limits. Port-A-Cath in place with tip at the junction of the SVC and right atrium. No bony abnormality. IMPRESSION: Essentially negative chest. Dictated by Edenilson Freire MD @ May 16 2019 1:38PM Signed by Dr. Edenilson Freire @ May 16 2019 1:40PM
[2019-05-16] MEDS ORDERED: Insulin Regular, Human 100 Units/ML 10 ML Vial IVPUSH STA (13:56)
--- NOTE | 2019-05-16 14:23 | CR ---
Indication: Pain. Technique: AP supine and upright views of the abdomen and pelvis were obtained. Comparison: None Findings: Moderate amount of stool is identified within the colon. The bowel gas pattern is nonobstructive. Surgical clips are identified in the right upper quadrant. No free air is identified. Impression: Nonobstructive bowel gas pattern. No free air. Dictated by Maggie See MD @ May 16 2019 2:22PM Signed by Dr. Maggie See @ May 16 2019 2:22PM
[2019-05-16] MEDS ORDERED: Sodium Chloride 0.9% 1,000 ML IV STA ×2 (14:25→16:03)
[2019-05-16] MEDS ORDERED: Ondansetron 4 MG/2 ML SDV IVPUSH PRN (14:37)
--- NOTE | 2019-05-16 14:53 | PCM.HP.2 ---
<Raymond Harley Hannah - Last Filed: 05/16/19 14:53> H&P History of Present Illness - General Date of Service: 05/16/19 Admit Problem/Dx: Admission Diagnosis/Problem Admission Diagnosis/Problem Hyperglycemia - History of Present Illness Initial Comments - Free Text/Narative: 33 y/o female with history of type 1 diabetes, bipolar disorder who presents today complaining of nausea, vomiting, abdominal pain. Patient states that she has been taking her insulin as indicated. Denies any recent illness. States that she has had poor oral intake due to vomiting. States she had 2-3 bowel movements this morning. No blood. No fevers, chest pain, dyspnea, dysuria, diarrhea. Denies illicit drug use. Smokes 1 ppd. No alcohol intake. Lives in [place] with . Moved few months ago from [place]. In the ER, patient was found to be hyperglycemic at 1100. ABG was negative for acidosis. She was administered a total of 40 units insulin while in the ER. Of note, patient was recently admitted for similar complaint and ended up leaving AMA that same night. Abdominal Pain Score (Numeric/FACES): 10 - Related Data Allergies/Adverse Reactions: Allergies Allergy/AdvReac Type Severity Reaction Status Date / Time acetaminophen [From Tylenol] Allergy Other Verified 05/16/19 12:53 aspirin Allergy Other Verified 05/16/19 12:53 buprenorphine [From Buprenex] Allergy Hallucinati Verified 05/16/19 12:53 ons butorphanol [From Stadol] Allergy Hallucinati Verified 05/16/19 12:53 ons ceftriaxone [From Rocephin] Allergy Hives Verified 05/16/19 12:53 cephalexin [From Keflex] Allergy Hallucinati Verified 05/16/19 12:53 ons fentanyl Allergy Hallucinati Verified 05/16/19 12:53 ons hydromorphone [From Dilaudid] Allergy Hives Verified 05/16/19 12:53 ketorolac [From Toradol] Allergy Hallucinati Verified 05/16/19 12:53 ons metoclopramide [From Reglan] Allergy Seizure Verified 05/16/19 12:53 morphine Allergy Itching Verified 05/16/19 12:53 tramadol Allergy Hallucinati Verified 05/16/19 12:53 ons Home Medications: Home Meds Albuterol [Proventil Neb Soln] 2 puff INH ASDIRECTED PRN 04/22/19 [History] Insulin Degludec [Tresiba] 15 units INJECT ACDINNER 04/22/19 [History] Insulin Degludec [Tresiba] 25 units INJECT ACBREAKFAST 04/22/19 [History] Insulin Lispro [HumaLOG] 1 dose INJECT ASDIRECTED 04/22/19 [History] LORazepam [Ativan] 1 mg PO ASDIRECTED PRN 04/22/19 [History] [place] Aspartate [Lithate] 300 mg PO BID 04/22/19 [History] Past Medical History HEENT History: Reports: Impaired Vision Other HEENT History: 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 Cardiovascular History: Reports: Other (See Below) Other Cardiovascular History: PAD Respiratory History: Reports: Asthma, Bronchitis, Recurrent, Pneumonia, Recurrent Gastrointestinal History: Reports: Other (See Below) Other Gastrointestinal History: Gastroparesis Genitourinary History: Reports: Renal Calculus, UTI, Recurrent 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: , Other (See Below) Other OB/BYN History: coma for 8 days due to UTI/spesis Musculoskeletal History: Reports: Osteoarthritis, Other (See Below) Other Musculoskeletal History: muscular atrophy Neurological History: Reports: Neuropathy, Diabetic Psychiatric History: Reports: Anxiety, Bipolar, Depression, Other (See Below) Other Psychiatric History: Schizoaffect disease, manic depressive Endocrine/Metabolic History: Reports: Diabetes, Type I Hematologic History: Reports: B12 Deficiency, Other (See Below) Other Hematologic History: hyponatremia Immunologic History: Reports: None Oncologic (Cancer) History: Reports: None Dermatologic History: Reports: Psoriasis - Infectious Disease History Infectious Disease History: Reports: None Other Infectious Disease History: C-diff over 6 years ago; lyme disease - Past Surgical History HEENT Surgical History: Reports: None Cardiovascular Surgical History: Reports: Other (See Below) Other Cardiovascular Surgeries/Procedures: PAD corrected at age 4 Respiratory Surgical History: Reports: None GI Surgical History: Reports: Cholecystectomy, Esophageal Dilatation Female Surgical History: Reports: D&C, Other (See Below) Endocrine Surgical History: Reports: None Neurological Surgical History: Reports: None Musculoskeletal Surgical History: Reports: None Oncologic Surgical History: Reports: None Dermatological Surgical History: Reports: None Social & Family History - Family History Family Medical History: Noncontributory - Tobacco Use Smoking Status *Q: Current Every Day Smoker Years of Tobacco use: 13 Packs/Tins Daily: 0.5 - Caffeine Use Caffeine Use: Reports: Coffee, Soda Caffeine Use Comment: 2 pots of coffee today; 3 pops a day - Recreational Drug Use Recreational Drug Use: No - Living Situation & Occupation Living situation: Reports: with Significant Other Occupation: Unemployed H&P Review of Systems - Review of Systems: Review Of Systems: ROS reveals no pertinent complaints other than HPI. Exam - Exam Exam: See Below - Vital Signs Vital Signs: Last Vital Signs Temp 36.6 C 05/16/19 12:51 Pulse 84 05/16/19 14:41 Resp 18 05/16/19 14:41 BP 106/67 05/16/19 14:41 Pulse Ox 98 05/16/19 14:41 Weight: 69.4 kg - Exam General: Alert, Oriented, Cooperative HEENT: Other (dry mucous membranes, poor dentition) Lungs: Clear to Auscultation, Normal Respiratory Effort. No: Crackles, Wheezing Cardiovascular: Regular Rate, Regular Rhythm GI/Abdominal Exam: Normal Bowel Sounds, Soft, Non-Tender, Distended Extremities: Normal Inspection, No Pedal Edema Skin: Warm, Dry Neuro Extensive - Mental Status: Alert, Oriented x3 - Patient Data Lab Results Last 24 hrs: Laboratory Results - last 24 hr 05/16/19 05/16/19 05/16/19 Range/Units 13:03 13:03 13:06 WBC 6.53 (4.0-11.0) K/uL RBC 4.50 (4.30-5.90) M/uL Hgb 13.1 (12.0-16.0) g/dL Hct 40.6 (36.0-46.0) % MCV 90.2 (80.0-98.0) fL MCH 29.1 (27.0-32.0) pg MCHC 32.3 (31.0-37.0) g/dL RDW Std Deviation 48.0 (28.0-62.0) fl RDW Coeff of Krystina 15 (11.0-15.0) % Plt Count 255 (150-400) K/uL MPV 12.10 H (7.40-12.00) fL Neut % (Auto) 64.0 (48.0-80.0) % Lymph % (Auto) 26.8 (16.0-40.0) % Clare % (Auto) 4.9 (0.0-15.0) % Eos % (Auto) 3.1 (0.0-7.0) % Baso % (Auto) 1.2 (0.0-1.5) % Neut # (Auto) 4.2 (1.4-5.7) K/uL Lymph # (Auto) 1.8 (0.6-2.4) K/uL Clare # (Auto) 0.3 (0.0-0.8) K/uL Eos # (Auto) 0.2 (0.0-0.7) K/uL Baso # (Auto) 0.1 (0.0-0.1) K/uL Nucleated RBC % 0.0 /100WBC Nucleated RBCs # 0 K/uL ABG pH (7.35-7.45) ABG pCO2 (35-45) mmHG ABG pO2 (75-100) mmHG ABG HCO3 (22-26) mEq/L ABG Total CO2 ABG Base Excess (-2.0-2.0) Sodium 118 L* (136-145) mmol/L Potassium 5.6 H (3.5-5.1) mmol/L Chloride 84 L (98-107) mmol/L Carbon Dioxide 25.5 (21.0-32.0) mmol/L BUN 24 H (7.0-18.0) mg/dL Creatinine 1.3 H (0.6-1.0) mg/dL Est Cr Clr Drug Dosing 55.90 mL/min Estimated GFR (MDRD) 47.5 ml/min Glucose 1125 H* (74-106) mg/dL POC Glucose > 500 H (60-110) mg/dL Calcium 8.9 (8.5-10.1) mg/dL Total Bilirubin 0.4 (0.2-1.0) mg/dL AST 574 H (15-37) IU/L ALT 363 H (14-63) IU/L Alkaline Phosphatase 296 H (46-116) U/L Total Protein 7.1 (6.4-8.2) g/dL Albumin 3.4 (3.4-5.0) g/dL Globulin 3.7 (2.6-4.0) g/dL Albumin/Globulin Ratio 0.9 (0.9-1.6) Lipase 228 (73-393) U/L Urine Color Urine Appearance Urine pH (5.0-8.0) Ur Specific [place] (1.001-1.035) Urine Protein (NEGATIVE) mg/dL Urine Glucose (UA) (NEGATIVE) mg/dL Urine Ketones (NEGATIVE) mg/dL Urine Occult Blood (NEGATIVE) Urine Nitrite (NEGATIVE) Urine Bilirubin (NEGATIVE) Urine Urobilinogen (<2.0) EU/dL Ur Leukocyte Esterase (NEGATIVE) 05/16/19 05/16/19 05/16/19 Range/Units 13:30 13:35 13:54 WBC (4.0-11.0) K/uL RBC (4.30-5.90) M/uL Hgb (12.0-16.0) g/dL Hct (36.0-46.0) % MCV (80.0-98.0) fL MCH (27.0-32.0) pg MCHC (31.0-37.0) g/dL RDW Std Deviation (28.0-62.0) fl RDW Coeff of Krystina (11.0-15.0) % Plt Count (150-400) K/uL MPV (7.40-12.00) fL Neut % (Auto) (48.0-80.0) % Lymph % (Auto) (16.0-40.0) % Clare % (Auto) (0.0-15.0) % Eos % (Auto) (0.0-7.0) % Baso % (Auto) (0.0-1.5) % Neut # (Auto) (1.4-5.7) K/uL Lymph # (Auto) (0.6-2.4) K/uL Clare # (Auto) (0.0-0.8) K/uL Eos # (Auto) (0.0-0.7) K/uL Baso # (Auto) (0.0-0.1) K/uL Nucleated RBC % /100WBC Nucleated RBCs # K/uL ABG pH 7.397 (7.35-7.45) ABG pCO2 37 (35-45) mmHG ABG pO2 87 (75-100) mmHG ABG HCO3 23 (22-26) mEq/L ABG Total CO2 20.7 ABG Base Excess -1.6 (-2.0-2.0) Sodium (136-145) mmol/L Potassium (3.5-5.1) mmol/L Chloride (98-107) mmol/L Carbon Dioxide (21.0-32.0) mmol/L BUN (7.0-18.0) mg/dL Creatinine (0.6-1.0) mg/dL Est Cr Clr Drug Dosing mL/min Estimated GFR (MDRD) ml/min Glucose (74-106) mg/dL POC Glucose > 500 H (60-110) mg/dL Calcium (8.5-10.1) mg/dL Total Bilirubin (0.2-1.0) mg/dL AST (15-37) IU/L ALT (14-63) IU/L Alkaline Phosphatase (46-116) U/L Total Protein (6.4-8.2) g/dL Albumin (3.4-5.0) g/dL Globulin (2.6-4.0) g/dL Albumin/Globulin Ratio (0.9-1.6) Lipase (73-393) U/L Urine Color YELLOW Urine Appearance CLEAR Urine pH 7.0 (5.0-8.0) Ur Specific [place] <= 1.005 (1.001-1.035) Urine Protein NEGATIVE (NEGATIVE) mg/dL Urine Glucose (UA) >=1000 (NEGATIVE) mg/dL Urine Ketones NEGATIVE (NEGATIVE) mg/dL Urine Occult Blood NEGATIVE (NEGATIVE) Urine Nitrite NEGATIVE (NEGATIVE) Urine Bilirubin NEGATIVE (NEGATIVE) Urine Urobilinogen 0.2 (<2.0) EU/dL Ur Leukocyte Esterase NEGATIVE (NEGATIVE) Result Diagrams: 05/16/19 13:03 05/16/19 13:03 Problem List Initiated/Reviewed/Updated: Yes Orders Last 24hrs: Active Orders 24 hr Category Date Time Status Patient Status [ADT] Routine ADT 05/16/19 14:08 Active Accu Check [Blood Glucose Check, Bedside] [RC] ONETIME Care 05/16/19 12:50 Active Diabetes Education [RC] Click to Edit Care 05/16/19 14:11 Active EKG Documentation Completion [RC] STAT Care 05/16/19 12:55 Active Oxygen Therapy [RC] PRN Care 05/16/19 14:08 Active Up ad Evelin [RC] ASDIRECTED Care 05/16/19 14:08 Active VTE/DVT Education [RC] PER UNIT ROUTINE Care 05/16/19 14:08 Active Vital Signs [RC] Q4H Care 05/16/19 14:08 Active NPO [Nothing Per Oral Diet] [DIET] Diet 05/16/19 Dinner Ordered BASIC METABOLIC PANEL,BMP [CHEM] Q4H Lab 05/16/19 17:00 Ordered BASIC METABOLIC PANEL,BMP [CHEM] Q4H Lab 05/16/19 21:00 Ordered CBC W/O DIFF,HEMOGRAM [HEME] AM Lab 05/17/19 05:11 Ordered CBC W/O DIFF,HEMOGRAM [HEME] AM Lab 05/18/19 05:11 Ordered CMP [COMPREHENSIVE METABOLIC PN,CMP] [CHEM] AM Lab 05/17/19 05:11 Ordered CMP [COMPREHENSIVE METABOLIC PN,CMP] [CHEM] AM Lab 05/18/19 05:11 Ordered DRUG SCREEN, URINE [URCHEM] Routine Lab 05/16/19 14:38 Ordered MAGNESIUM [CHEM] Routine Lab 05/16/19 14:39 Ordered Heparin Sodium Med 05/16/19 14:15 Active 5,000 units SUBCUT Q8H Insulin Regular, Human [NovoLIN R] 100 unit Med 05/16/19 14:30 Active Sodium Chloride 0.9% [Normal Saline] 99 ml IV TITRATE Ondansetron [Zofran] Med 05/16/19 14:37 Active 4 mg IVPUSH Q6H PRN Sodium Chloride 0.9% [Normal Saline] 1,000 ml Med 05/16/19 14:25 Active IV NOW Glucose Management Sub Q Reflex [OM.PC] Click To Edit Oth 05/16/19 14:08 Ordered Resuscitation Status Routine Resus Stat 05/16/19 14:08 Ordered Medication Orders Heparin Sodium (Porcine) (Heparin Sodium) 5,000 units SUBCUT Q8H [place] Insulin Human Regular 100 unit (/ Sodium Chloride) 100 mls @ 5 mls/hr IV TITRATE DIEGO; Protocol Sodium Chloride (Normal Saline) 1,000 mls @ 999 mls/hr IV NOW STA Stop: 05/16/19 15:25 Last Admin: 05/16/19 14:39 Dose: 999 mls/hr Ondansetron HCl (Zofran) 4 mg IVPUSH Q6H PRN PRN Reason: Nausea Assessment/Plan Comment:: A: 1. Hyperglycemia 2. Nausea, vomiting 3. Hyperkalemia 4. Pseudo hyponatremia 5. Elevated liver enzymes 6. PMH type 1 diabetes, bipolar disorder P: 1. Will admit patient as inpatient to ICU unit. Start insulin drip. Hydrate with NS. NPO for now. Zofran PRN for nausea. Will resume home meds once she can tolerate PO intake. Will get BMP Q4H x2. Replace electrolytes as indicated. If liver enzymes still elevated, will order RUQ U/S. Dispo: 1-2 days <Ant Jaimes - Last Filed: 05/16/19 14:59> H&P History of Present Illness - General Admit Problem/Dx: Admission Diagnosis/Problem Admission Diagnosis/Problem Hyperglycemia I have examined the patient independently of medical sociologist, Dr. Raymond MD. I have discussed the case with him. I have reviewed and agree with the examination and plan as outlined by him. Please see orders. Exam - Vital Signs Vital Signs: Last Vital Signs Temp 36.6 C 05/16/19 12:51 Pulse 84 05/16/19 14:41 Resp 18 05/16/19 14:41 BP 106/67 05/16/19 14:41 Pulse Ox 98 05/16/19 14:41 - Patient Data Lab Results Last 24 hrs: Laboratory Results - last 24 hr 05/16/19 05/16/19 05/16/19 Range/Units 13:03 13:03 13:03 WBC 6.53 (4.0-11.0) K/uL RBC 4.50 (4.30-5.90) M/uL Hgb 13.1 (12.0-16.0) g/dL Hct 40.6 (36.0-46.0) % MCV 90.2 (80.0-98.0) fL MCH 29.1 (27.0-32.0) pg MCHC 32.3 (31.0-37.0) g/dL RDW Std Deviation 48.0 (28.0-62.0) fl RDW Coeff of Krystina 15 (11.0-15.0) % Plt Count 255 (150-400) K/uL MPV 12.10 H (7.40-12.00) fL Neut % (Auto) 64.0 (48.0-80.0) % Lymph % (Auto) 26.8 (16.0-40.0) % Clare % (Auto) 4.9 (0.0-15.0) % Eos % (Auto) 3.1 (0.0-7.0) % Baso % (Auto) 1.2 (0.0-1.5) % Neut # (Auto) 4.2 (1.4-5.7) K/uL Lymph # (Auto) 1.8 (0.6-2.4) K/uL [place] # (Auto) 0.3 (0.0-0.8) K/uL Eos # (Auto) 0.2 (0.0-0.7) K/uL Baso # (Auto) 0.1 (0.0-0.1) K/uL Nucleated RBC % 0.0 /100WBC Nucleated RBCs # 0 K/uL ABG pH (7.35-7.45) ABG pCO2 (35-45) mmHG ABG pO2 (75-100) mmHG ABG HCO3 (22-26) mEq/L ABG Total CO2 ABG Base Excess (-2.0-2.0) Sodium 118 L* (136-145) mmol/L Potassium 5.6 H (3.5-5.1) mmol/L Chloride 84 L (98-107) mmol/L Carbon Dioxide 25.5 (21.0-32.0) mmol/L BUN 24 H (7.0-18.0) mg/dL Creatinine 1.3 H (0.6-1.0) mg/dL Est Cr Clr Drug Dosing 55.90 mL/min Estimated GFR (MDRD) 47.5 ml/min Glucose 1125 H* (74-106) mg/dL POC Glucose (60-110) mg/dL Calcium 8.9 (8.5-10.1) mg/dL Magnesium 2.1 (1.8-2.4) mg/dL Total Bilirubin 0.4 (0.2-1.0) mg/dL AST 574 H (15-37) IU/L ALT 363 H (14-63) IU/L Alkaline Phosphatase 296 H (46-116) U/L Total Protein 7.1 (6.4-8.2) g/dL Albumin 3.4 (3.4-5.0) g/dL Globulin 3.7 (2.6-4.0) g/dL Albumin/Globulin Ratio 0.9 (0.9-1.6) Lipase 228 (73-393) U/L Urine Color Urine Appearance Urine pH (5.0-8.0) Ur Specific [place] (1.001-1.035) Urine Protein (NEGATIVE) mg/dL Urine Glucose (UA) (NEGATIVE) mg/dL Urine Ketones (NEGATIVE) mg/dL Urine Occult Blood (NEGATIVE) Urine Nitrite (NEGATIVE) Urine Bilirubin (NEGATIVE) Urine Urobilinogen (<2.0) EU/dL Ur Leukocyte Esterase (NEGATIVE) Urine Opiates Screen (NEGATIVE) Ur Oxycodone Screen (NEGATIVE) Urine Methadone Screen (NEGATIVE) Ur Barbiturates Screen (NEGATIVE) Ur Phencyclidine Scrn (NEGATIVE) Ur Amphetamine Screen (NEGATIVE) U Methamphetamines Scrn (NEGATIVE) U Benzodiazepines Scrn (NEGATIVE) U Cocaine Metab Screen (NEGATIVE) U Marijuana (THC) Screen (NEGATIVE) 05/16/19 05/16/19 05/16/19 Range/Units 13:06 13:30 13:35 WBC (4.0-11.0) K/uL RBC (4.30-5.90) M/uL Hgb (12.0-16.0) g/dL Hct (36.0-46.0) % MCV (80.0-98.0) fL MCH (27.0-32.0) pg MCHC (31.0-37.0) g/dL RDW Std Deviation (28.0-62.0) fl RDW Coeff of Krystina (11.0-15.0) % Plt Count (150-400) K/uL MPV (7.40-12.00) fL Neut % (Auto) (48.0-80.0) % Lymph % (Auto) (16.0-40.0) % Clare % (Auto) (0.0-15.0) % Eos % (Auto) (0.0-7.0) % Baso % (Auto) (0.0-1.5) % Neut # (Auto) (1.4-5.7) K/uL Lymph # (Auto) (0.6-2.4) K/uL Clare # (Auto) (0.0-0.8) K/uL Eos # (Auto) (0.0-0.7) K/uL Baso # (Auto) (0.0-0.1) K/uL Nucleated RBC % /100WBC Nucleated RBCs # K/uL ABG pH 7.397 (7.35-7.45) ABG pCO2 37 (35-45) mmHG ABG pO2 87 (75-100) mmHG ABG HCO3 23 (22-26) mEq/L ABG Total CO2 20.7 ABG Base Excess -1.6 (-2.0-2.0) Sodium (136-145) mmol/L Potassium (3.5-5.1) mmol/L Chloride (98-107) mmol/L Carbon Dioxide (21.0-32.0) mmol/L BUN (7.0-18.0) mg/dL Creatinine (0.6-1.0) mg/dL Est Cr Clr Drug Dosing mL/min Estimated GFR (MDRD) ml/min Glucose (74-106) mg/dL POC Glucose > 500 H (60-110) mg/dL Calcium (8.5-10.1) mg/dL Magnesium (1.8-2.4) mg/dL Total Bilirubin (0.2-1.0) mg/dL AST (15-37) IU/L ALT (14-63) IU/L Alkaline Phosphatase (46-116) U/L Total Protein (6.4-8.2) g/dL Albumin (3.4-5.0) g/dL Globulin (2.6-4.0) g/dL Albumin/Globulin Ratio (0.9-1.6) Lipase (73-393) U/L Urine Color YELLOW Urine Appearance CLEAR Urine pH 7.0 (5.0-8.0) Ur Specific [place] <= 1.005 (1.001-1.035) Urine Protein NEGATIVE (NEGATIVE) mg/dL Urine Glucose (UA) >=1000 (NEGATIVE) mg/dL Urine Ketones NEGATIVE (NEGATIVE) mg/dL Urine Occult Blood NEGATIVE (NEGATIVE) Urine Nitrite NEGATIVE (NEGATIVE) Urine Bilirubin NEGATIVE (NEGATIVE) Urine Urobilinogen 0.2 (<2.0) EU/dL Ur Leukocyte Esterase NEGATIVE (NEGATIVE) Urine Opiates Screen (NEGATIVE) Ur Oxycodone Screen (NEGATIVE) Urine Methadone Screen (NEGATIVE) Ur Barbiturates Screen (NEGATIVE) Ur Phencyclidine Scrn (NEGATIVE) Ur Amphetamine Screen (NEGATIVE) U Methamphetamines Scrn (NEGATIVE) U Benzodiazepines Scrn (NEGATIVE) U Cocaine Metab Screen (NEGATIVE) U Marijuana (THC) Screen (NEGATIVE) 05/16/19 05/16/19 Range/Units 13:35 13:54 WBC (4.0-11.0) K/uL RBC (4.30-5.90) M/uL Hgb (12.0-16.0) g/dL Hct (36.0-46.0) % MCV (80.0-98.0) fL MCH (27.0-32.0) pg MCHC (31.0-37.0) g/dL RDW Std Deviation (28.0-62.0) fl RDW Coeff of Krystina (11.0-15.0) % Plt Count (150-400) K/uL MPV (7.40-12.00) fL Neut % (Auto) (48.0-80.0) % Lymph % (Auto) (16.0-40.0) % Clare % (Auto) (0.0-15.0) % Eos % (Auto) (0.0-7.0) % Baso % (Auto) (0.0-1.5) % Neut # (Auto) (1.4-5.7) K/uL Lymph # (Auto) (0.6-2.4) K/uL Clare # (Auto) (0.0-0.8) K/uL Eos # (Auto) (0.0-0.7) K/uL Baso # (Auto) (0.0-0.1) K/uL Nucleated RBC % /100WBC Nucleated RBCs # K/uL ABG pH (7.35-7.45) ABG pCO2 (35-45) mmHG ABG pO2 (75-100) mmHG ABG HCO3 (22-26) mEq/L ABG Total CO2 ABG Base Excess (-2.0-2.0) Sodium (136-145) mmol/L Potassium (3.5-5.1) mmol/L Chloride (98-107) mmol/L Carbon Dioxide (21.0-32.0) mmol/L BUN (7.0-18.0) mg/dL Creatinine (0.6-1.0) mg/dL Est Cr Clr Drug Dosing mL/min Estimated GFR (MDRD) ml/min Glucose (74-106) mg/dL POC Glucose > 500 H (60-110) mg/dL Calcium (8.5-10.1) mg/dL Magnesium (1.8-2.4) mg/dL Total Bilirubin (0.2-1.0) mg/dL AST (15-37) IU/L ALT (14-63) IU/L Alkaline Phosphatase (46-116) U/L Total Protein (6.4-8.2) g/dL Albumin (3.4-5.0) g/dL Globulin (2.6-4.0) g/dL Albumin/Globulin Ratio (0.9-1.6) Lipase (73-393) U/L Urine Color Urine Appearance Urine pH (5.0-8.0) Ur Specific [place] (1.001-1.035) Urine Protein (NEGATIVE) mg/dL Urine Glucose (UA) (NEGATIVE) mg/dL Urine Ketones (NEGATIVE) mg/dL Urine Occult Blood (NEGATIVE) Urine Nitrite (NEGATIVE) Urine Bilirubin (NEGATIVE) Urine Urobilinogen (<2.0) EU/dL Ur Leukocyte Esterase (NEGATIVE) Urine Opiates Screen NEGATIVE (NEGATIVE) Ur Oxycodone Screen NEGATIVE (NEGATIVE) Urine Methadone Screen NEGATIVE (NEGATIVE) Ur Barbiturates Screen NEGATIVE (NEGATIVE) Ur Phencyclidine Scrn NEGATIVE (NEGATIVE) Ur Amphetamine Screen NEGATIVE (NEGATIVE) U Methamphetamines Scrn NEGATIVE (NEGATIVE) U Benzodiazepines Scrn NEGATIVE (NEGATIVE) U Cocaine Metab Screen NEGATIVE (NEGATIVE) U Marijuana (THC) Screen NEGATIVE (NEGATIVE) Result Diagrams: 05/16/19 13:03 05/16/19 13:03 Orders Last 24hrs: Active Orders 24 hr Category Date Time Status Patient Status [ADT] Routine ADT 05/16/19 14:08 Active Accu Check [Blood Glucose Check, Bedside] [RC] ONETIME Care 05/16/19 12:50 Active Diabetes Education [RC] Click to Edit Care 05/16/19 14:11 Active EKG Documentation Completion [RC] STAT Care 05/16/19 12:55 Active Oxygen Therapy [RC] PRN Care 05/16/19 14:08 Active Up ad Evelin [RC] ASDIRECTED Care 05/16/19 14:08 Active VTE/DVT Education [RC] PER UNIT ROUTINE Care 05/16/19 14:08 Active Vital Signs [RC] Q4H Care 05/16/19 14:08 Active NPO [Nothing Per Oral Diet] [DIET] Diet 05/16/19 Dinner Active BASIC METABOLIC PANEL,BMP [CHEM] Q4H Lab 05/16/19 17:00 Ordered BASIC METABOLIC PANEL,BMP [CHEM] Q4H Lab 05/16/19 21:00 Ordered CBC W/O DIFF,HEMOGRAM [HEME] AM Lab 05/17/19 05:11 Ordered CBC W/O DIFF,HEMOGRAM [HEME] AM Lab 05/18/19 05:11 Ordered CMP [COMPREHENSIVE METABOLIC PN,CMP] [CHEM] AM Lab 05/17/19 05:11 Ordered CMP [COMPREHENSIVE METABOLIC PN,CMP] [CHEM] AM Lab 05/18/19 05:11 Ordered Heparin Sodium Med 05/16/19 14:15 Active 5,000 units SUBCUT Q8H Insulin Regular, Human [NovoLIN R] 100 unit Med 05/16/19 14:30 Active Sodium Chloride 0.9% [Normal Saline] 99 ml IV TITRATE Ondansetron [Zofran] Med 05/16/19 14:37 Active 4 mg IVPUSH Q6H PRN Sodium Chloride 0.9% [Normal Saline] 1,000 ml Med 05/16/19 14:25 Active IV NOW Glucose Management Sub Q Reflex [OM.PC] Click To Edit Oth 05/16/19 14:08 Ordered Resuscitation Status Routine Resus Stat 05/16/19 14:08 Ordered Medication Orders Heparin Sodium (Porcine) (Heparin Sodium) 5,000 units SUBCUT Q8H [place] Insulin Human Regular 100 unit (/ Sodium Chloride) 100 mls @ 5 mls/hr IV TITRATE DIEGO; Protocol Sodium Chloride (Normal Saline) 1,000 mls @ 999 mls/hr IV NOW STA Stop: 05/16/19 15:25 Last Admin: 05/16/19 14:39 Dose: 999 mls/hr Ondansetron HCl (Zofran) 4 mg IVPUSH Q6H PRN PRN Reason: Nausea
[2019-05-16] MEDS ORDERED: Bisacodyl 5 MG Tab PO PRN (15:01)
[2019-05-16] MEDS ORDERED: Polyethylene Glycol 3350 Powder 17 GM Packet PO ONE (15:26)
[2019-05-16] MEDS ORDERED: Bisacodyl 5 MG Tab PO ONE (15:26)
[2019-05-16] MEDS ORDERED: Ketorolac 15 MG/ML SDV IVPUSH PRN (15:29)
[2019-05-16] MEDS ORDERED: diphenhydrAMINE 50 MG Cap PO PRN (15:31)
--- NOTE | 2019-05-16 15:48 | PN ---
THC Physician - Brief Progress [id number]/18/2019 15:19[facility] Katie Tony, YOLANDE - [facility] - MWN CLARENCE PRADODate of Service 05/16/2019 15:19HPI/Events of Note eICU Admit NotePt is a 33 yo F presenting to the ED with c/o N/V and stabbing abdominal pain. PMH includes DM I and Bipolar disorder. BG in the ED was > 1100 with a corrected AG of 10. She was g iven 40 U of insulin then transitioned to a gtt. She states she has been taking her insulin as direct ed, but has been unable to eat secondary to nausea. Her LFT's are increased and she will have an abdo tam US in the am if they remain elevated tomorrow. She was admitted with the same complaints recent ly, but left the same evening AMA. Upon evaluation she is agitated and tearful requesting pain medica tion. Her VS are stable and her case was discussed with sharon Frey. eICU Recs:1) Insul in gtt for BG control2) PRN electrolyte replacement3) AM US if LFT's remain elevated4) Pain control a s appropriate5) GI/DVT prophylaxisInterventions Major-Hyperglycemia - active titration of insulin the rapyIntermediate-Communication with other healthcare providers and/or family, Pain - evaluation and m anagement
[2019-05-16] MEDS ORDERED: LORazepam 2 MG/ML SDV IVPUSH PRN (16:03)
[2019-05-16] MEDS: Insulin Aspart 100 Units/ML 3 ML Pen SUBCUT SCH ×2 (16:26→20:39)
[2019-05-16] MEDS ORDERED: LORazepam 1 MG Tab PO PRN (16:53)
[2019-05-16] MEDS ORDERED: Albuterol HFA 18 Gm Inhaler INH PRN (16:53)
[2019-05-16 17:34] LABS: CHLORIDE,CL 101 mmol/L (98-107); SODIUM,NA 135 mmol/L (136-145)
[2019-05-16] MEDS: Heparin Sodium 5,000 Units/ML Vial SUBCUT SCH ×2 (17:40→22:31)
[2019-05-16] MEDS ORDERED: Ibuprofen 800 MG Tab PO PRN (17:41)
[2019-05-16] MEDS: Morphine 2 MG/ML Syringe IVPUSH PRN (17:59)
[2019-05-16] MEDS: diphenhydrAMINE 12.5 MG/5 ML Liquid 5 ML UD Cup PO PRN (18:28)
[2019-05-16 22:02] LABS: CHLORIDE,CL 102 mmol/L (98-107); SODIUM,NA 136 mmol/L (136-145)
[2019-05-17] MEDS: diphenhydrAMINE 12.5 MG/5 ML Liquid 5 ML UD Cup PO PRN (00:35)
[2019-05-17] MEDS: Morphine 2 MG/ML Syringe IVPUSH PRN (01:00)
[2019-05-17] MEDS: Insulin Aspart 100 Units/ML 3 ML Pen SUBCUT SCH ×7 (01:15→23:54)
[2019-05-17 05:41] LABS: CHLORIDE,CL 101 mmol/L (98-107); SODIUM,NA 133 mmol/L (136-145)
[2019-05-17] MEDS: Heparin Sodium 5,000 Units/ML Vial SUBCUT SCH ×3 (06:35→21:45)
[2019-05-17] MEDS ORDERED: Morphine 2 MG/ML Syringe IVPUSH ONE ×2 (09:25→17:16)
[2019-05-17] MEDS ORDERED: diphenhydrAMINE 50 MG/ML SDV IVPUSH ONE ×2 (09:25→17:16)
--- NOTE | 2019-05-17 09:48 | PCM.PN ---
- General Info Date of Service: 05/17/19 Admission Dx/Problem (Free Text): Admission Diagnosis/Problem Admission Diagnosis/Problem Hyperglycemia, abdominal pain, poorly controlled diabetes mellitus type 1, diabetic gastroparesis Subjective Update: The patient is a 33-year-old lady who had been admitted to acute hospitalization secondary to her [id number] type 1 diabetes and severe abdominal pain. The patient has expressed frustration in "people not listening to her" regarding her illness. The patient seemed unconcerned with her blood glucose being elevated above 1100 mg/dL. The patient says that her overwhelming concern is abdominal pain. The patient's nausea and vomiting has improved and she has been eating. The patient also has been refusing some treatments, medications and monitoring. Functional Status: Denies: Pain Controlled - Review of Systems General: Reports: No Symptoms HEENT: Reports: No Symptoms Pulmonary: Reports: No Symptoms Cardiovascular: Reports: No Symptoms Gastrointestinal: Reports: Abdominal Pain Genitourinary: Reports: No Symptoms Musculoskeletal: Reports: No Symptoms Skin: Reports: No Symptoms Neurological: Reports: No Symptoms Psychiatric: Reports: No Symptoms - Patient Data Vitals - Most Recent: Last Vital Signs Temp 36.0 C 05/17/19 04:49 Pulse 77 05/17/19 04:49 Resp 13 05/17/19 04:49 BP 101/69 05/17/19 04:49 Pulse Ox 94 L 05/17/19 04:49 Weight - Most Recent: 67.404 kg I&O - Last 24 Hours: Intake & Output 05/16/19 05/17/19 05/17/19 22:59 06:59 14:59 Intake Total 720 3700 Output Total 1000 2810 Balance -280 890 Lab Results Last 24 Hours: Laboratory Results - last 24 hr 05/16/19 05/16/19 05/16/19 Range/Units 13:03 13:03 13:03 WBC 6.53 (4.0-11.0) K/uL RBC 4.50 (4.30-5.90) M/uL Hgb 13.1 (12.0-16.0) g/dL Hct 40.6 (36.0-46.0) % MCV 90.2 (80.0-98.0) fL MCH 29.1 (27.0-32.0) pg MCHC 32.3 (31.0-37.0) g/dL RDW Std Deviation 48.0 (28.0-62.0) fl RDW Coeff of Krystina 15 (11.0-15.0) % Plt Count 255 (150-400) K/uL MPV 12.10 H (7.40-12.00) fL Neut % (Auto) 64.0 (48.0-80.0) % Lymph % (Auto) 26.8 (16.0-40.0) % Kidder % (Auto) 4.9 (0.0-15.0) % Eos % (Auto) 3.1 (0.0-7.0) % Baso % (Auto) 1.2 (0.0-1.5) % Neut # (Auto) 4.2 (1.4-5.7) K/uL Lymph # (Auto) 1.8 (0.6-2.4) K/uL Kidder # (Auto) 0.3 (0.0-0.8) K/uL Eos # (Auto) 0.2 (0.0-0.7) K/uL Baso # (Auto) 0.1 (0.0-0.1) K/uL Nucleated RBC % 0.0 /100WBC Nucleated RBCs # 0 K/uL ABG pH (7.35-7.45) ABG pCO2 (35-45) mmHG ABG pO2 (75-100) mmHG ABG HCO3 (22-26) mEq/L ABG Total CO2 ABG Base Excess (-2.0-2.0) Sodium 118 L* (136-145) mmol/L Potassium 5.6 H (3.5-5.1) mmol/L Chloride 84 L (98-107) mmol/L Carbon Dioxide 25.5 (21.0-32.0) mmol/L BUN 24 H (7.0-18.0) mg/dL Creatinine 1.3 H (0.6-1.0) mg/dL Est Cr Clr Drug Dosing 55.90 mL/min Estimated GFR (MDRD) 47.5 ml/min Glucose 1125 H* (74-106) mg/dL POC Glucose (60-110) mg/dL Calcium 8.9 (8.5-10.1) mg/dL Magnesium 2.1 (1.8-2.4) mg/dL Total Bilirubin 0.4 (0.2-1.0) mg/dL AST 574 H (15-37) IU/L ALT 363 H (14-63) IU/L Alkaline Phosphatase 296 H (46-116) U/L Total Protein 7.1 (6.4-8.2) g/dL Albumin 3.4 (3.4-5.0) g/dL Globulin 3.7 (2.6-4.0) g/dL Albumin/Globulin Ratio 0.9 (0.9-1.6) Lipase 228 (73-393) U/L Urine Color Urine Appearance Urine pH (5.0-8.0) Ur Specific Crouse (1.001-1.035) Urine Protein (NEGATIVE) mg/dL Urine Glucose (UA) (NEGATIVE) mg/dL Urine Ketones (NEGATIVE) mg/dL Urine Occult Blood (NEGATIVE) Urine Nitrite (NEGATIVE) Urine Bilirubin (NEGATIVE) Urine Urobilinogen (<2.0) EU/dL Ur Leukocyte Esterase (NEGATIVE) Urine Opiates Screen (NEGATIVE) Ur Oxycodone Screen (NEGATIVE) Urine Methadone Screen (NEGATIVE) Ur Barbiturates Screen (NEGATIVE) Ur Phencyclidine Scrn (NEGATIVE) Ur Amphetamine Screen (NEGATIVE) U Methamphetamines Scrn (NEGATIVE) U Benzodiazepines Scrn (NEGATIVE) U Cocaine Metab Screen (NEGATIVE) U Marijuana (THC) Screen (NEGATIVE) 05/16/19 05/16/19 05/16/19 Range/Units 13:06 13:30 13:35 WBC (4.0-11.0) K/uL RBC (4.30-5.90) M/uL Hgb (12.0-16.0) g/dL Hct (36.0-46.0) % MCV (80.0-98.0) fL MCH (27.0-32.0) pg MCHC (31.0-37.0) g/dL RDW Std Deviation (28.0-62.0) fl RDW Coeff of Krystina (11.0-15.0) % Plt Count (150-400) K/uL MPV (7.40-12.00) fL Neut % (Auto) (48.0-80.0) % Lymph % (Auto) (16.0-40.0) % Kidder % (Auto) (0.0-15.0) % Eos % (Auto) (0.0-7.0) % Baso % (Auto) (0.0-1.5) % Neut # (Auto) (1.4-5.7) K/uL Lymph # (Auto) (0.6-2.4) K/uL Kidder # (Auto) (0.0-0.8) K/uL Eos # (Auto) (0.0-0.7) K/uL Baso # (Auto) (0.0-0.1) K/uL Nucleated RBC % /100WBC Nucleated RBCs # K/uL ABG pH 7.397 (7.35-7.45) ABG pCO2 37 (35-45) mmHG ABG pO2 87 (75-100) mmHG ABG HCO3 23 (22-26) mEq/L ABG Total CO2 20.7 ABG Base Excess -1.6 (-2.0-2.0) Sodium (136-145) mmol/L Potassium (3.5-5.1) mmol/L Chloride (98-107) mmol/L Carbon Dioxide (21.0-32.0) mmol/L BUN (7.0-18.0) mg/dL Creatinine (0.6-1.0) mg/dL Est Cr Clr Drug Dosing mL/min Estimated GFR (MDRD) ml/min Glucose (74-106) mg/dL POC Glucose > 500 H (60-110) mg/dL Calcium (8.5-10.1) mg/dL Magnesium (1.8-2.4) mg/dL Total Bilirubin (0.2-1.0) mg/dL AST (15-37) IU/L ALT (14-63) IU/L Alkaline Phosphatase (46-116) U/L Total Protein (6.4-8.2) g/dL Albumin (3.4-5.0) g/dL Globulin (2.6-4.0) g/dL Albumin/Globulin Ratio (0.9-1.6) Lipase (73-393) U/L Urine Color YELLOW Urine Appearance CLEAR Urine pH 7.0 (5.0-8.0) Ur Specific Crouse <= 1.005 (1.001-1.035) Urine Protein NEGATIVE (NEGATIVE) mg/dL Urine Glucose (UA) >=1000 (NEGATIVE) mg/dL Urine Ketones NEGATIVE (NEGATIVE) mg/dL Urine Occult Blood NEGATIVE (NEGATIVE) Urine Nitrite NEGATIVE (NEGATIVE) Urine Bilirubin NEGATIVE (NEGATIVE) Urine Urobilinogen 0.2 (<2.0) EU/dL Ur Leukocyte Esterase NEGATIVE (NEGATIVE) Urine Opiates Screen (NEGATIVE) Ur Oxycodone Screen (NEGATIVE) Urine Methadone Screen (NEGATIVE) Ur Barbiturates Screen (NEGATIVE) Ur Phencyclidine Scrn (NEGATIVE) Ur Amphetamine Screen (NEGATIVE) U Methamphetamines Scrn (NEGATIVE) U Benzodiazepines Scrn (NEGATIVE) U Cocaine Metab Screen (NEGATIVE) U Marijuana (THC) Screen (NEGATIVE) 05/16/19 05/16/19 05/16/19 Range/Units 13:35 13:54 15:56 WBC (4.0-11.0) K/uL RBC (4.30-5.90) M/uL Hgb (12.0-16.0) g/dL Hct (36.0-46.0) % MCV (80.0-98.0) fL MCH (27.0-32.0) pg MCHC (31.0-37.0) g/dL RDW Std Deviation (28.0-62.0) fl RDW Coeff of Krystina (11.0-15.0) % Plt Count (150-400) K/uL MPV (7.40-12.00) fL Neut % (Auto) (48.0-80.0) % Lymph % (Auto) (16.0-40.0) % Kidder % (Auto) (0.0-15.0) % Eos % (Auto) (0.0-7.0) % Baso % (Auto) (0.0-1.5) % Neut # (Auto) (1.4-5.7) K/uL Lymph # (Auto) (0.6-2.4) K/uL Kidder # (Auto) (0.0-0.8) K/uL Eos # (Auto) (0.0-0.7) K/uL Baso # (Auto) (0.0-0.1) K/uL Nucleated RBC % /100WBC Nucleated RBCs # K/uL ABG pH (7.35-7.45) ABG pCO2 (35-45) mmHG ABG pO2 (75-100) mmHG ABG HCO3 (22-26) mEq/L ABG Total CO2 ABG Base Excess (-2.0-2.0) Sodium (136-145) mmol/L Potassium (3.5-5.1) mmol/L Chloride (98-107) mmol/L Carbon Dioxide (21.0-32.0) mmol/L BUN (7.0-18.0) mg/dL Creatinine (0.6-1.0) mg/dL Est Cr Clr Drug Dosing mL/min Estimated GFR (MDRD) ml/min Glucose (74-106) mg/dL POC Glucose > 500 H 399 H (60-110) mg/dL Calcium (8.5-10.1) mg/dL Magnesium (1.8-2.4) mg/dL Total Bilirubin (0.2-1.0) mg/dL AST (15-37) IU/L ALT (14-63) IU/L Alkaline Phosphatase (46-116) U/L Total Protein (6.4-8.2) g/dL Albumin (3.4-5.0) g/dL Globulin (2.6-4.0) g/dL Albumin/Globulin Ratio (0.9-1.6) Lipase (73-393) U/L Urine Color Urine Appearance Urine pH (5.0-8.0) Ur Specific Crouse (1.001-1.035) Urine Protein (NEGATIVE) mg/dL Urine Glucose (UA) (NEGATIVE) mg/dL Urine Ketones (NEGATIVE) mg/dL Urine Occult Blood (NEGATIVE) Urine Nitrite (NEGATIVE) Urine Bilirubin (NEGATIVE) Urine Urobilinogen (<2.0) EU/dL Ur Leukocyte Esterase (NEGATIVE) Urine Opiates Screen NEGATIVE (NEGATIVE) Ur Oxycodone Screen NEGATIVE (NEGATIVE) Urine Methadone Screen NEGATIVE (NEGATIVE) Ur Barbiturates Screen NEGATIVE (NEGATIVE) Ur Phencyclidine Scrn NEGATIVE (NEGATIVE) Ur Amphetamine Screen NEGATIVE (NEGATIVE) U Methamphetamines Scrn NEGATIVE (NEGATIVE) U Benzodiazepines Scrn NEGATIVE (NEGATIVE) U Cocaine Metab Screen NEGATIVE (NEGATIVE) U Marijuana (THC) Screen NEGATIVE (NEGATIVE) 05/16/19 05/16/19 05/16/19 Range/Units 17:13 18:33 19:50 WBC (4.0-11.0) K/uL RBC (4.30-5.90) M/uL Hgb (12.0-16.0) g/dL Hct (36.0-46.0) % MCV (80.0-98.0) fL MCH (27.0-32.0) pg MCHC (31.0-37.0) g/dL RDW Std Deviation (28.0-62.0) fl RDW Coeff of Krystina (11.0-15.0) % Plt Count (150-400) K/uL MPV (7.40-12.00) fL Neut % (Auto) (48.0-80.0) % Lymph % (Auto) (16.0-40.0) % Kidder % (Auto) (0.0-15.0) % Eos % (Auto) (0.0-7.0) % Baso % (Auto) (0.0-1.5) % Neut # (Auto) (1.4-5.7) K/uL Lymph # (Auto) (0.6-2.4) K/uL Kidder # (Auto) (0.0-0.8) K/uL Eos # (Auto) (0.0-0.7) K/uL Baso # (Auto) (0.0-0.1) K/uL Nucleated RBC % /100WBC Nucleated RBCs # K/uL ABG pH (7.35-7.45) ABG pCO2 (35-45) mmHG ABG pO2 (75-100) mmHG ABG HCO3 (22-26) mEq/L ABG Total CO2 ABG Base Excess (-2.0-2.0) Sodium 135 L (136-145) mmol/L Potassium 3.5 (3.5-5.1) mmol/L Chloride 101 (98-107) mmol/L Carbon Dioxide 26.1 (21.0-32.0) mmol/L BUN 19 H (7.0-18.0) mg/dL Creatinine 0.8 (0.6-1.0) mg/dL Est Cr Clr Drug Dosing 90.84 mL/min Estimated GFR (MDRD) > 60.0 ml/min Glucose 252 H (74-106) mg/dL POC Glucose 76 149 H (60-110) mg/dL Calcium 8.5 (8.5-10.1) mg/dL Magnesium (1.8-2.4) mg/dL Total Bilirubin (0.2-1.0) mg/dL AST (15-37) IU/L ALT (14-63) IU/L Alkaline Phosphatase (46-116) U/L Total Protein (6.4-8.2) g/dL Albumin (3.4-5.0) g/dL Globulin (2.6-4.0) g/dL Albumin/Globulin Ratio (0.9-1.6) Lipase (73-393) U/L Urine Color Urine Appearance Urine pH (5.0-8.0) Ur Specific Crouse (1.001-1.035) Urine Protein (NEGATIVE) mg/dL Urine Glucose (UA) (NEGATIVE) mg/dL Urine Ketones (NEGATIVE) mg/dL Urine Occult Blood (NEGATIVE) Urine Nitrite (NEGATIVE) Urine Bilirubin (NEGATIVE) Urine Urobilinogen (<2.0) EU/dL Ur Leukocyte Esterase (NEGATIVE) Urine Opiates Screen (NEGATIVE) Ur Oxycodone Screen (NEGATIVE) Urine Methadone Screen (NEGATIVE) Ur Barbiturates Screen (NEGATIVE) Ur Phencyclidine Scrn (NEGATIVE) Ur Amphetamine Screen (NEGATIVE) U Methamphetamines Scrn (NEGATIVE) U Benzodiazepines Scrn (NEGATIVE) U Cocaine Metab Screen (NEGATIVE) U Marijuana (THC) Screen (NEGATIVE) 05/16/19 05/16/19 05/17/19 Range/Units 21:12 23:38 00:30 WBC (4.0-11.0) K/uL RBC (4.30-5.90) M/uL Hgb (12.0-16.0) g/dL Hct (36.0-46.0) % MCV (80.0-98.0) fL MCH (27.0-32.0) pg MCHC (31.0-37.0) g/dL RDW Std Deviation (28.0-62.0) fl RDW Coeff of Krystina (11.0-15.0) % Plt Count (150-400) K/uL MPV (7.40-12.00) fL Neut % (Auto) (48.0-80.0) % Lymph % (Auto) (16.0-40.0) % Kidder % (Auto) (0.0-15.0) % Eos % (Auto) (0.0-7.0) % Baso % (Auto) (0.0-1.5) % Neut # (Auto) (1.4-5.7) K/uL Lymph # (Auto) (0.6-2.4) K/uL Kidder # (Auto) (0.0-0.8) K/uL Eos # (Auto) (0.0-0.7) K/uL Baso # (Auto) (0.0-0.1) K/uL Nucleated RBC % /100WBC Nucleated RBCs # K/uL ABG pH (7.35-7.45) ABG pCO2 (35-45) mmHG ABG pO2 (75-100) mmHG ABG HCO3 (22-26) mEq/L ABG Total CO2 ABG Base Excess (-2.0-2.0) Sodium 136 (136-145) mmol/L Potassium 4.2 (3.5-5.1) mmol/L Chloride 102 (98-107) mmol/L Carbon Dioxide 26.5 (21.0-32.0) mmol/L BUN 15 (7.0-18.0) mg/dL Creatinine 0.8 (0.6-1.0) mg/dL Est Cr Clr Drug Dosing 90.84 mL/min Estimated GFR (MDRD) > 60.0 ml/min Glucose 192 H (74-106) mg/dL POC Glucose 47 L 223 H (60-110) mg/dL Calcium 8.2 L (8.5-10.1) mg/dL Magnesium (1.8-2.4) mg/dL Total Bilirubin (0.2-1.0) mg/dL AST (15-37) IU/L ALT (14-63) IU/L Alkaline Phosphatase (46-116) U/L Total Protein (6.4-8.2) g/dL Albumin (3.4-5.0) g/dL Globulin (2.6-4.0) g/dL Albumin/Globulin Ratio (0.9-1.6) Lipase (73-393) U/L Urine Color Urine Appearance Urine pH (5.0-8.0) Ur Specific Crouse (1.001-1.035) Urine Protein (NEGATIVE) mg/dL Urine Glucose (UA) (NEGATIVE) mg/dL Urine Ketones (NEGATIVE) mg/dL Urine Occult Blood (NEGATIVE) Urine Nitrite (NEGATIVE) Urine Bilirubin (NEGATIVE) Urine Urobilinogen (<2.0) EU/dL Ur Leukocyte Esterase (NEGATIVE) Urine Opiates Screen (NEGATIVE) Ur Oxycodone Screen (NEGATIVE) Urine Methadone Screen (NEGATIVE) Ur Barbiturates Screen (NEGATIVE) Ur Phencyclidine Scrn (NEGATIVE) Ur Amphetamine Screen (NEGATIVE) U Methamphetamines Scrn (NEGATIVE) U Benzodiazepines Scrn (NEGATIVE) U Cocaine Metab Screen (NEGATIVE) U Marijuana (THC) Screen (NEGATIVE) 05/17/19 05/17/19 05/17/19 Range/Units 04:30 04:30 04:47 WBC 7.40 (4.0-11.0) K/uL RBC 3.86 L (4.30-5.90) M/uL Hgb 11.0 L (12.0-16.0) g/dL Hct 32.7 L (36.0-46.0) % MCV 84.7 (80.0-98.0) fL MCH 28.5 (27.0-32.0) pg MCHC 33.6 (31.0-37.0) g/dL RDW Std Deviation 43.0 (28.0-62.0) fl RDW Coeff of Krystina 14 (11.0-15.0) % Plt Count 245 (150-400) K/uL MPV 12.10 H (7.40-12.00) fL Neut % (Auto) (48.0-80.0) % Lymph % (Auto) (16.0-40.0) % Kidder % (Auto) (0.0-15.0) % Eos % (Auto) (0.0-7.0) % Baso % (Auto) (0.0-1.5) % Neut # (Auto) (1.4-5.7) K/uL Lymph # (Auto) (0.6-2.4) K/uL Kidder # (Auto) (0.0-0.8) K/uL Eos # (Auto) (0.0-0.7) K/uL Baso # (Auto) (0.0-0.1) K/uL Nucleated RBC % 0.0 /100WBC Nucleated RBCs # 0 K/uL ABG pH (7.35-7.45) ABG pCO2 (35-45) mmHG ABG pO2 (75-100) mmHG ABG HCO3 (22-26) mEq/L ABG Total CO2 ABG Base Excess (-2.0-2.0) Sodium 133 L (136-145) mmol/L Potassium 4.8 (3.5-5.1) mmol/L Chloride 101 (98-107) mmol/L Carbon Dioxide 23.1 (21.0-32.0) mmol/L BUN 14 (7.0-18.0) mg/dL Creatinine 0.8 (0.6-1.0) mg/dL Est Cr Clr Drug Dosing 94.51 mL/min Estimated GFR (MDRD) > 60.0 ml/min Glucose 468 H (74-106) mg/dL POC Glucose 466 H (60-110) mg/dL Calcium 8.0 L (8.5-10.1) mg/dL Magnesium (1.8-2.4) mg/dL Total Bilirubin 0.2 (0.2-1.0) mg/dL AST 165 H (15-37) IU/L ALT 231 H (14-63) IU/L Alkaline Phosphatase 209 H (46-116) U/L Total Protein 5.6 L (6.4-8.2) g/dL Albumin 2.7 L (3.4-5.0) g/dL Globulin 2.9 (2.6-4.0) g/dL Albumin/Globulin Ratio 0.9 (0.9-1.6) Lipase (73-393) U/L Urine Color Urine Appearance Urine pH (5.0-8.0) Ur Specific Crouse (1.001-1.035) Urine Protein (NEGATIVE) mg/dL Urine Glucose (UA) (NEGATIVE) mg/dL Urine Ketones (NEGATIVE) mg/dL Urine Occult Blood (NEGATIVE) Urine Nitrite (NEGATIVE) Urine Bilirubin (NEGATIVE) Urine Urobilinogen (<2.0) EU/dL Ur Leukocyte Esterase (NEGATIVE) Urine Opiates Screen (NEGATIVE) Ur Oxycodone Screen (NEGATIVE) Urine Methadone Screen (NEGATIVE) Ur Barbiturates Screen (NEGATIVE) Ur Phencyclidine Scrn (NEGATIVE) Ur Amphetamine Screen (NEGATIVE) U Methamphetamines Scrn (NEGATIVE) U Benzodiazepines Scrn (NEGATIVE) U Cocaine Metab Screen (NEGATIVE) U Marijuana (THC) Screen (NEGATIVE) 05/17/19 05/17/19 Range/Units 06:07 06:37 WBC (4.0-11.0) K/uL RBC (4.30-5.90) M/uL Hgb (12.0-16.0) g/dL Hct (36.0-46.0) % MCV (80.0-98.0) fL MCH (27.0-32.0) pg MCHC (31.0-37.0) g/dL RDW Std Deviation (28.0-62.0) fl RDW Coeff of Krystina (11.0-15.0) % Plt Count (150-400) K/uL MPV (7.40-12.00) fL Neut % (Auto) (48.0-80.0) % Lymph % (Auto) (16.0-40.0) % Kidder % (Auto) (0.0-15.0) % Eos % (Auto) (0.0-7.0) % Baso % (Auto) (0.0-1.5) % Neut # (Auto) (1.4-5.7) K/uL Lymph # (Auto) (0.6-2.4) K/uL Kidder # (Auto) (0.0-0.8) K/uL Eos # (Auto) (0.0-0.7) K/uL Baso # (Auto) (0.0-0.1) K/uL Nucleated RBC % /100WBC Nucleated RBCs # K/uL ABG pH (7.35-7.45) ABG pCO2 (35-45) mmHG ABG pO2 (75-100) mmHG ABG HCO3 (22-26) mEq/L ABG Total CO2 ABG Base Excess (-2.0-2.0) Sodium (136-145) mmol/L Potassium (3.5-5.1) mmol/L Chloride (98-107) mmol/L Carbon Dioxide (21.0-32.0) mmol/L BUN (7.0-18.0) mg/dL Creatinine (0.6-1.0) mg/dL Est Cr Clr Drug Dosing mL/min Estimated GFR (MDRD) ml/min Glucose (74-106) mg/dL POC Glucose 413 H 362 H (60-110) mg/dL Calcium (8.5-10.1) mg/dL Magnesium (1.8-2.4) mg/dL Total Bilirubin (0.2-1.0) mg/dL AST (15-37) IU/L ALT (14-63) IU/L Alkaline Phosphatase (46-116) U/L Total Protein (6.4-8.2) g/dL Albumin (3.4-5.0) g/dL Globulin (2.6-4.0) g/dL Albumin/Globulin Ratio (0.9-1.6) Lipase (73-393) U/L Urine Color Urine Appearance Urine pH (5.0-8.0) Ur Specific Crouse (1.001-1.035) Urine Protein (NEGATIVE) mg/dL Urine Glucose (UA) (NEGATIVE) mg/dL Urine Ketones (NEGATIVE) mg/dL Urine Occult Blood (NEGATIVE) Urine Nitrite (NEGATIVE) Urine Bilirubin (NEGATIVE) Urine Urobilinogen (<2.0) EU/dL Ur Leukocyte Esterase (NEGATIVE) Urine Opiates Screen (NEGATIVE) Ur Oxycodone Screen (NEGATIVE) Urine Methadone Screen (NEGATIVE) Ur Barbiturates Screen (NEGATIVE) Ur Phencyclidine Scrn (NEGATIVE) Ur Amphetamine Screen (NEGATIVE) U Methamphetamines Scrn (NEGATIVE) U Benzodiazepines Scrn (NEGATIVE) U Cocaine Metab Screen (NEGATIVE) U Marijuana (THC) Screen (NEGATIVE) Med Orders - Current: Current Medications Albuterol (Ventolin Hfa) 0 gm INH QID PRN PRN Reason: SOB/wheezing Bisacodyl (Dulcolax) 10 mg PO BID PRN PRN Reason: Constipation Diphenhydramine HCl (Benadryl) 50 mg PO Q6H PRN PRN Reason: Itching Last Admin: 05/17/19 00:35 Dose: 50 mg Heparin Sodium (Porcine) (Heparin Sodium) 5,000 units SUBCUT Q8H [facility] Last Admin: 05/17/19 06:35 Dose: Not Given Ibuprofen (Motrin) 800 mg PO Q6H PRN PRN Reason: Pain Insulin Aspart (Novolog) 0 unit SUBCUT Q4H [facility]; Protocol Last Admin: 05/17/19 04:57 Dose: 15 unit Lorazepam (Ativan) 1 mg PO QID PRN PRN Reason: Anxiety Last Admin: 05/17/19 00:59 Dose: 1 mg Ondansetron HCl (Zofran) 4 mg IVPUSH Q6H PRN PRN Reason: Nausea [place] Aspartate [ (Lithate] 300 Mg) 1 each PO BID DIGEO Discontinued Medications Bisacodyl (Dulcolax) 15 mg PO ONETIME ONE Stop: 05/16/19 15:27 Last Admin: 05/16/19 17:41 Dose: Not Given Diphenhydramine HCl (Benadryl) 25 mg IVPUSH ONETIME ONE Stop: 05/16/19 13:19 Last Admin: 05/16/19 13:22 Dose: 25 mg Diphenhydramine HCl (Benadryl) 50 mg PO Q6H PRN PRN Reason: Itching Diphenhydramine HCl (Benadryl) 25 mg IVPUSH ONETIME ONE Stop: 05/17/19 09:26 Sodium Chloride (Normal Saline) 1,000 mls @ 999 mls/hr IV STAT ONE Stop: 05/16/19 13:49 Last Admin: 05/16/19 13:15 Dose: 999 mls/hr Insulin Human Regular 100 unit (/ Sodium Chloride) 100 mls @ 5 mls/hr IV TITRATE [place]; Protocol Sodium Chloride (Normal Saline) 1,000 mls @ 999 mls/hr IV NOW STA Stop: 05/16/19 15:25 Last Admin: 05/16/19 14:39 Dose: 999 mls/hr Sodium Chloride (Normal Saline) 1,000 mls @ 150 mls/hr IV Q7H STA Stop: 05/16/19 22:42 Last Admin: 05/16/19 16:00 Dose: 150 mls/hr Insulin Human Regular (Novolin R) 10 unit IVPUSH ONETIME ONE; Protocol Stop: 05/16/19 12:52 Last Admin: 05/16/19 13:15 Dose: 10 units Insulin Human Regular (Novolin R) 10 unit SUBCUT NOW STA; Protocol Stop: 05/16/19 12:52 Last Admin: 05/16/19 13:18 Dose: 10 unit Insulin Human Regular (Novolin R) 10 unit IVPUSH ONETIME STA; Protocol Stop: 05/16/19 13:57 Last Admin: 05/16/19 14:00 Dose: 10 unit Insulin Human Regular (Novolin R) 10 unit SUBCUT ONETIME STA; Protocol Stop: 05/16/19 13:58 Last Admin: 05/16/19 14:01 Dose: 10 unit Ketorolac Tromethamine (Toradol) 15 mg IVPUSH Q6H PRN PRN Reason: Pain Stop: 05/21/19 15:30 Lorazepam (Ativan) 0.5 mg IVPUSH ONETIME ONE Stop: 05/16/19 13:13 Last Admin: 05/16/19 13:22 Dose: 0.5 mg Lorazepam (Ativan) 1 mg IVPUSH Q8H PRN PRN Reason: Anxiety Morphine Sulfate (Morphine) 2 mg IVPUSH ONETIME ONE Stop: 05/16/19 13:13 Last Admin: 05/16/19 13:22 Dose: 2 mg Morphine Sulfate (Morphine) 1 mg IVPUSH ONETIME ONE Stop: 05/16/19 14:46 Last Admin: 05/16/19 14:53 Dose: 1 mg Morphine Sulfate (Morphine) 2 mg IVPUSH Q4H PRN PRN Reason: Pain Last Admin: 05/17/19 01:00 Dose: 2 mg Morphine Sulfate (Morphine) 2 mg IVPUSH NOW ONE Stop: 05/17/19 09:26 Ondansetron HCl (Zofran) 8 mg IVPUSH ONETIME ONE Stop: 05/16/19 12:50 Last Admin: 05/16/19 13:15 Dose: 8 mg Polyethylene Glycol (Miralax) 17 gm PO ONETIME ONE Stop: 05/16/19 15:27 Last Admin: 05/16/19 17:41 Dose: Not Given - Exam Quality Assessment: No: Supplemental Oxygen General: Alert, Oriented, Mild Distress, Other (Tearful, crying) HEENT: Pupils Equal, Pupils Reactive, EOMI, Mucous Membr. Moist/[place] Neck: Supple, Trachea Midline Lungs: Clear to Auscultation, Normal Respiratory Effort Cardiovascular: Regular Rate, Regular Rhythm GI/Abdominal Exam: Normal Bowel Sounds, Distended, Tender (Epigastrium). No: Guarding, Rigid, Rebound Back Exam: Normal Inspection, Full Range of Motion Extremities: Normal Inspection, No Pedal Edema Skin: Warm, Dry, Intact Neurological: No New Focal Deficit Psy/Mental Status: Alert, Normal Affect, Normal Mood - Problem List & Annotations (1) Gastroparesis diabeticorum SNOMED Code(s): 796114741 Code(s): E11.43 - TYPE 2 DIABETES W DIABETIC AUTONOMIC (POLY)NEUROPATHY; K31.84 - GASTROPARESIS Status: Chronic Priority: High Current Visit: Yes (2) Acute abdominal pain SNOMED Code(s): 217097098 Code(s): R10.9 - UNSPECIFIED ABDOMINAL PAIN Status: Acute Priority: High Current Visit: Yes (3) Hyperglycemia SNOMED Code(s): 04739491 Code(s): R73.9 - HYPERGLYCEMIA, UNSPECIFIED Status: Acute Priority: High Current Visit: Yes (4) Diabetes mellitus type 1, uncontrolled, with complications SNOMED Code(s): 11401796, 222773784 Code(s): E10.8 - TYPE 1 DIABETES MELLITUS WITH UNSPECIFIED COMPLICATIONS; E10.65 - TYPE 1 DIABETES MELLITUS WITH HYPERGLYCEMIA Status: Chronic Priority: High Current Visit: Yes - Problem List Review Problem List Initiated/Reviewed/Updated: Yes - My Orders Last 24 Hours: My Active Orders 05/16/19 14:08 Patient Status [ADT] Routine Oxygen Therapy [RC] PRN Up ad Evelin [RC] ASDIRECTED VTE/DVT Education [RC] PER UNIT ROUTINE Vital Signs [RC] Q4H Glucose Management Sub Q Reflex [OM.PC] Click To Edit Resuscitation Status Routine 05/16/19 14:11 Diabetes Education [RC] Click to Edit 05/16/19 14:15 Heparin Sodium 5,000 units SUBCUT Q8H 05/17/19 09:26 Communication Order [RC] PER UNIT ROUTINE 05/17/19 09:39 UA W/MICROSCOPIC [URIN] Routine 05/17/19 09:43 Communication Order [RC] PER UNIT ROUTINE - Plan Plan:: A: 1. Hyperglycemia 2. Nausea, vomiting 3. Hyperkalemia 4. Pseudo hyponatremia 5. Elevated liver enzymes 6. PMH type 1 diabetes, bipolar disorder P: 1. Will admit patient as inpatient to ICU unit. Start insulin drip. Hydrate with NS. NPO for now. Zofran PRN for nausea. Will resume home meds once she can tolerate PO intake. Will get BMP Q4H x2. Replace electrolytes as indicated. If liver enzymes still elevated, will order RUQ U/S. Dispo: 1-2 days The patient is a 33-year-old lady who had been admitted secondary to severe hyperglycemia along with poorly controlled diabetes mellitus type 1. The patient 's primary concern had been with her abdominal pain and had exhibited seemingly little concern over her blood sugars. The patient also had 2 other admissions within the past 3 weeks that had resulted in her displays of anger and signing out AGAINST MEDICAL ADVICE. The patient also has been at various times refusing medications, education and monitoring. The patient has repeatedly said that "people and not listening to me" and not wanting to help her. I have spoken with the patient with the nursing transmission supervisor present and the patient had been given information with regards to having a primary care physician, following up with health services for Medicaid, as the patient says that she is disabled, as well as services for diabetic education. The patient says that she has an insulin pump and has insulin supplies and the reasons for not using at her somewhat unclear. The patient had not been on insulin drip but had been on subcutaneous NovoLog and I've downgraded the patient from ICU to med surgery and have discontinued telemetry. I've also ordered that she have vital signs taken every 8 hours as opposed to every 4 hours. I've also ordered morphine 2 mg IV every 4 hours with 25 mg of Benadryl IV every 4 hours as well to help with her pain. I had a long discussion with the patient regarding the treatment for diabetic gastroparesis and also have referred the patient to gastroenterology as well as endocrinology for management of her brittle diabetes. The patient had also expressed concern with regards to possibility of early urinary tract infection and I've ordered a urinalysis for the patient. Urinalysis was positive for urinary nitrates and bacteria and I've elected to place the patient on Bactrim DS by mouth 1 twice a day. I do believe that the patient would be better serviced with an insulin pump to help better control her diabetes mellitus type 1. I recommend that the patient continue to follow with cosmetology educator with regards to the close management of her hyperglycemia. Further, because of the patient's mood swings and possible bipolar disorder if the patient does present again to acute hospitalization I would recommend that she receive psychiatric evaluation. Repeat laboratory studies have been ordered. The patient should continue on her current ADA diet as tolerated.
[2019-05-17] MEDS: LITHIUM ASPARTATE PO SCH ×3 (10:13→20:27)
[2019-05-17] MEDS: Sulfamethoxazole/Trimethoprim 800-160 MG Tab PO SCH ×2 (15:02→20:31)
[2019-05-18] MEDS: Insulin Aspart 100 Units/ML 3 ML Pen SUBCUT SCH ×2 (05:00→08:09)
[2019-05-18] MEDS: Heparin Sodium 5,000 Units/ML Vial SUBCUT SCH (05:20)
[2019-05-18 07:18] LABS: CHLORIDE,CL 100 mmol/L (98-107); SODIUM,NA 133 mmol/L (136-145)
--- NOTE | 2019-05-18 08:42 | PCM.DCSUM1 ---
Discharge Summary - Hospital Course Free Text/Narrative:: The patient was admitted secondary to abdominal pain as well as blood sugars at 1125 mg/dL. Diagnosis: Stroke: No - Discharge Data Discharge Date: 05/18/19 Discharge Disposition: Home, Self-Care 01 Condition: Good - Discharge Diagnosis/Problem(s) (1) Gastroparesis diabeticorum SNOMED Code(s): 763848971 ICD Code: E11.43 - TYPE 2 DIABETES W DIABETIC AUTONOMIC (POLY)NEUROPATHY; K31.84 - GASTROPARESIS Status: Chronic Priority: High Current Visit: Yes (2) Acute abdominal pain SNOMED Code(s): 157067952 ICD Code: R10.9 - UNSPECIFIED ABDOMINAL PAIN Status: Acute Priority: High Current Visit: Yes (3) Hyperglycemia SNOMED Code(s): 29938096 ICD Code: R73.9 - HYPERGLYCEMIA, UNSPECIFIED Status: Acute Priority: High Current Visit: Yes (4) Diabetes mellitus type 1, uncontrolled, with complications SNOMED Code(s): 28388553, 229940699 ICD Code: E10.8 - TYPE 1 DIABETES MELLITUS WITH UNSPECIFIED COMPLICATIONS; E10.65 - TYPE 1 DIABETES MELLITUS WITH HYPERGLYCEMIA Status: Chronic Priority: High Current Visit: Yes - Patient Summary/Data Hospital Course: The patient is a 33-year-old female who has a history of type 1 diabetes had been admitted to hospitalization on May 16, 2019 after presentation to the emergency department with markedly elevated blood sugars although her primary complaint was abdominal pain. Initially, her blood sugar was 1125 mg/dL. The patient was not in diabetic ketoacidosis at this time. The patient had been started on aggressive insulin therapy to help control her blood sugars. The patient previously had a hemoglobin A1c of 12.5%. The patient seen more concerned with her abdominal pain as opposed to her blood sugars. The patient does have a history of diabetic gastroparesis. While at home in [place] the patient admitted that she had been considered for a gastric stimulator or pylorectomy to help with her diabetic gastroparesis. During that hospitalization the patient's behavior had been somewhat problematic. The patient had been hospitalized 2 other times and had left AGAINST MEDICAL ADVICE. The patient at times had been refusing treatment, monitoring or other medications. The patient's behavior have been discussed with her by nursing fence supervisor and for the most part the patient said that she was concerned that "people are not listening to me" with regards to her issues. The patient has multiple allergies and as a result of this the "only thing" that does work for her pain is morphine with Benadryl at the same time. The patient had also expressed concern with regards to possibility of early urinary tract infection and I've ordered a urinalysis for the patient. Urinalysis was positive for urinary nitrates and bacteria and I've elected to place the patient on Bactrim DS by mouth 1 twice a day. I recommend that the patient would be better serviced with an insulin pump to help better control her diabetes mellitus type 1. I recommend that the patient continue to follow with extruder tender with regards to the close management of her hyperglycemia. The patient had an opportunity to meet with extruder tender and receive further information that she continues to help manage her diabetes. Also she had been given instruction with regards to gastric paretic diet. The patient had been given information with regards to [facility] to help with obtaining medications and further evaluation for social research assistant. The patient also had been given appointments for gastroenterology and endocrinology to help with the management of her diabetic gastroparesis and her poorly controlled diabetes mellitus type 1. The patient also has been given information with regards to primary care physician where she can follow-up for further management. By the day of discharge the patient had been hemodynamically stable. The patient has been recommended to continue with appropriate gastroparesis diabetic diet to include low residual as well as smaller feedings throughout the day. The patient is also to have activity as tolerated. The patient does have evidence of urinary tract infection and she had been given a prescription for Bactrim DS one by mouth twice a day for 3 days. She has been hemodynamically stable and she is discharged from acute hospitalization with the recommendations listed above. - Patient Instructions Diet: Heart Healthy Diet Activity: As Tolerated Notify Provider of: Increased Pain, Swelling and Redness - Discharge Plan *PRESCRIPTION DRUG MONITORING PROGRAM REVIEWED*: No *COPY OF PRESCRIPTION DRUG MONITORING REPORT IN PATIENT FOSTER: No Prescriptions/Med Rec: Sulfamethoxazole/Trimethoprim [Septra DS] 1 tab PO BID #8 tablet Home Medications: Home Meds Insulin Degludec [Tresiba] 15 units INJECT ACDINNER 04/22/19 [History] Insulin Lispro [HumaLOG] 1 dose INJECT ASDIRECTED 04/22/19 [History] LORazepam [Ativan] 1 mg PO QID PRN 04/22/19 [History] [place] Aspartate [Lithate] 300 mg PO BID 04/22/19 [History] Albuterol [Ventolin HFA] 1 puff INH QID PRN 05/16/19 [History] Sulfamethoxazole/Trimethoprim [Septra DS] 1 tab PO BID #8 tablet 05/18/19 [Rx] Oxygen Therapy Mode: Room Air Patient Handouts: Urinary Tract Infection, Adult, [id number], Hyperglycemia, [id number], Sulfamethoxazole; Trimethoprim, [id number]-TMP tablets Referrals: [facility] [Outside] Sandra Sharif MD [Ordering Only Provider] - 06/16/19 4:00 pm Katharine Danielle NP [Nurse Practitioner] - 05/25/19 12:45 pm Jose Sinclair MD [Ordering Only Provider] - 07/08/19 2:00 pm - Discharge Summary/Plan Comment DC Time >30 min.: Yes - General Info Date of Service: 05/18/19 Admission Dx/Problem (Free Text: Admission Diagnosis/Problem Admission Diagnosis/Problem Hyperglycemia, abdominal pain, poorly controlled diabetes mellitus type 1, diabetic gastroparesis Subjective Update: The patient doing better. Less pain. She feels like she can go home. No further nausea or vomiting. Functional Status: Reports: Pain Controlled - Review of Systems General: Reports: No Symptoms HEENT: Reports: No Symptoms Pulmonary: Reports: No Symptoms Cardiovascular: Reports: No Symptoms Gastrointestinal: Reports: No Symptoms Genitourinary: Reports: No Symptoms Musculoskeletal: Reports: No Symptoms Skin: Reports: No Symptoms Neurological: Reports: No Symptoms Psychiatric: Reports: No Symptoms - Patient Data Vitals - Most Recent: Last Vital Signs Temp 36.6 C 05/18/19 07:40 Pulse 84 05/18/19 07:40 Resp 16 05/18/19 07:40 BP 111/71 05/18/19 07:40 Pulse Ox 98 05/18/19 07:40 Weight - Most Recent: 65.771 kg I&O - Last 24 hours: Intake & Output 05/17/19 05/18/19 05/18/19 22:59 06:59 14:59 Intake Total 910 1500 Output Total 900 700 Balance 10 800 Lab Results - Last 24 hrs: Laboratory Results - last 24 hr 05/17/19 05/17/19 05/17/19 Range/Units 08:40 09:45 11:15 WBC (4.0-11.0) K/uL RBC (4.30-5.90) M/uL Hgb (12.0-16.0) g/dL Hct (36.0-46.0) % MCV (80.0-98.0) fL MCH (27.0-32.0) pg MCHC (31.0-37.0) g/dL RDW Std Deviation (28.0-62.0) fl RDW Coeff of Krystina (11.0-15.0) % Plt Count (150-400) K/uL MPV (7.40-12.00) fL Nucleated RBC % /100WBC Nucleated RBCs # K/uL Sodium (136-145) mmol/L Potassium (3.5-5.1) mmol/L Chloride (98-107) mmol/L Carbon Dioxide (21.0-32.0) mmol/L BUN (7.0-18.0) mg/dL Creatinine (0.6-1.0) mg/dL Est Cr Clr Drug Dosing mL/min Estimated GFR (MDRD) ml/min Glucose (74-106) mg/dL POC Glucose 187 H 209 H (60-110) mg/dL Calcium (8.5-10.1) mg/dL Total Bilirubin (0.2-1.0) mg/dL AST (15-37) IU/L ALT (14-63) IU/L Alkaline Phosphatase (46-116) U/L Total Protein (6.4-8.2) g/dL Albumin (3.4-5.0) g/dL Globulin (2.6-4.0) g/dL Albumin/Globulin Ratio (0.9-1.6) Urine Color YELLOW Urine Appearance CLEAR Urine pH 6.0 (5.0-8.0) Ur Specific [place] 1.010 (1.001-1.035) Urine Protein NEGATIVE (NEGATIVE) mg/dL Urine Glucose (UA) >=1000 (NEGATIVE) mg/dL Urine Ketones NEGATIVE (NEGATIVE) mg/dL Urine Occult Blood NEGATIVE (NEGATIVE) Urine Nitrite POSITIVE H (NEGATIVE) Urine Bilirubin NEGATIVE (NEGATIVE) Urine Urobilinogen 0.2 (<2.0) EU/dL Ur Leukocyte Esterase NEGATIVE (NEGATIVE) Urine RBC 0-1 (0-2/HPF) Urine WBC 4-6 (0-5/HPF) Ur Epithelial Cells RARE (NONE-FEW) Amorphous Sediment NOT SEEN (NEGATIVE) Urine Bacteria 4+ H (NEGATIVE) Urine Mucus NOT SEEN (NONE-MOD) 05/17/19 05/17/19 05/17/19 Range/Units 15:31 19:45 23:54 WBC (4.0-11.0) K/uL RBC (4.30-5.90) M/uL Hgb (12.0-16.0) g/dL Hct (36.0-46.0) % MCV (80.0-98.0) fL MCH (27.0-32.0) pg MCHC (31.0-37.0) g/dL RDW Std Deviation (28.0-62.0) fl RDW Coeff of Krystina (11.0-15.0) % Plt Count (150-400) K/uL MPV (7.40-12.00) fL Nucleated RBC % /100WBC Nucleated RBCs # K/uL Sodium (136-145) mmol/L Potassium (3.5-5.1) mmol/L Chloride (98-107) mmol/L Carbon Dioxide (21.0-32.0) mmol/L BUN (7.0-18.0) mg/dL Creatinine (0.6-1.0) mg/dL Est Cr Clr Drug Dosing mL/min Estimated GFR (MDRD) ml/min Glucose (74-106) mg/dL POC Glucose 262 H 267 H 163 H (60-110) mg/dL Calcium (8.5-10.1) mg/dL Total Bilirubin (0.2-1.0) mg/dL AST (15-37) IU/L ALT (14-63) IU/L Alkaline Phosphatase (46-116) U/L Total Protein (6.4-8.2) g/dL Albumin (3.4-5.0) g/dL Globulin (2.6-4.0) g/dL Albumin/Globulin Ratio (0.9-1.6) Urine Color Urine Appearance Urine pH (5.0-8.0) Ur Specific [place] (1.001-1.035) Urine Protein (NEGATIVE) mg/dL Urine Glucose (UA) (NEGATIVE) mg/dL Urine Ketones (NEGATIVE) mg/dL Urine Occult Blood (NEGATIVE) Urine Nitrite (NEGATIVE) Urine Bilirubin (NEGATIVE) Urine Urobilinogen (<2.0) EU/dL Ur Leukocyte Esterase (NEGATIVE) Urine RBC (0-2/HPF) Urine WBC (0-5/HPF) Ur Epithelial Cells (NONE-FEW) Amorphous Sediment (NEGATIVE) Urine Bacteria (NEGATIVE) Urine Mucus (NONE-MOD) 05/18/19 05/18/19 05/18/19 Range/Units 04:27 06:18 06:18 WBC 7.54 (4.0-11.0) K/uL RBC 3.91 L (4.30-5.90) M/uL Hgb 11.2 L (12.0-16.0) g/dL Hct 33.6 L (36.0-46.0) % MCV 85.9 (80.0-98.0) fL MCH 28.6 (27.0-32.0) pg MCHC 33.3 (31.0-37.0) g/dL RDW Std Deviation 45.1 (28.0-62.0) fl RDW Coeff of Krystina 15 (11.0-15.0) % Plt Count 248 (150-400) K/uL MPV 12.00 (7.40-12.00) fL Nucleated RBC % 0.0 /100WBC Nucleated RBCs # 0 K/uL Sodium 133 L (136-145) mmol/L Potassium 4.1 (3.5-5.1) mmol/L Chloride 100 (98-107) mmol/L Carbon Dioxide 22.9 (21.0-32.0) mmol/L BUN 23 H (7.0-18.0) mg/dL Creatinine 1.0 (0.6-1.0) mg/dL Est Cr Clr Drug Dosing 72.56 mL/min Estimated GFR (MDRD) > 60.0 ml/min Glucose 321 H (74-106) mg/dL POC Glucose 268 H (60-110) mg/dL Calcium 8.5 (8.5-10.1) mg/dL Total Bilirubin 0.2 (0.2-1.0) mg/dL AST 106 H (15-37) IU/L ALT 192 H (14-63) IU/L Alkaline Phosphatase 192 H (46-116) U/L Total Protein 5.4 L (6.4-8.2) g/dL Albumin 2.8 L (3.4-5.0) g/dL Globulin 2.6 (2.6-4.0) g/dL Albumin/Globulin Ratio 1.1 (0.9-1.6) Urine Color Urine Appearance Urine pH (5.0-8.0) Ur Specific [place] (1.001-1.035) Urine Protein (NEGATIVE) mg/dL Urine Glucose (UA) (NEGATIVE) mg/dL Urine Ketones (NEGATIVE) mg/dL Urine Occult Blood (NEGATIVE) Urine Nitrite (NEGATIVE) Urine Bilirubin (NEGATIVE) Urine Urobilinogen (<2.0) EU/dL Ur Leukocyte Esterase (NEGATIVE) Urine RBC (0-2/HPF) Urine WBC (0-5/HPF) Ur Epithelial Cells (NONE-FEW) Amorphous Sediment (NEGATIVE) Urine Bacteria (NEGATIVE) Urine Mucus (NONE-MOD) 05/18/19 Range/Units 08:07 WBC (4.0-11.0) K/uL RBC (4.30-5.90) M/uL Hgb (12.0-16.0) g/dL Hct (36.0-46.0) % MCV (80.0-98.0) fL MCH (27.0-32.0) pg MCHC (31.0-37.0) g/dL RDW Std Deviation (28.0-62.0) fl RDW Coeff of Krystina (11.0-15.0) % Plt Count (150-400) K/uL MPV (7.40-12.00) fL Nucleated RBC % /100WBC Nucleated RBCs # K/uL Sodium (136-145) mmol/L Potassium (3.5-5.1) mmol/L Chloride (98-107) mmol/L Carbon Dioxide (21.0-32.0) mmol/L BUN (7.0-18.0) mg/dL Creatinine (0.6-1.0) mg/dL Est Cr Clr Drug Dosing mL/min Estimated GFR (MDRD) ml/min Glucose (74-106) mg/dL POC Glucose 359 H (60-110) mg/dL Calcium (8.5-10.1) mg/dL Total Bilirubin (0.2-1.0) mg/dL AST (15-37) IU/L ALT (14-63) IU/L Alkaline Phosphatase (46-116) U/L Total Protein (6.4-8.2) g/dL Albumin (3.4-5.0) g/dL Globulin (2.6-4.0) g/dL Albumin/Globulin Ratio (0.9-1.6) Urine Color Urine Appearance Urine pH (5.0-8.0) Ur Specific [place] (1.001-1.035) Urine Protein (NEGATIVE) mg/dL Urine Glucose (UA) (NEGATIVE) mg/dL Urine Ketones (NEGATIVE) mg/dL Urine Occult Blood (NEGATIVE) Urine Nitrite (NEGATIVE) Urine Bilirubin (NEGATIVE) Urine Urobilinogen (<2.0) EU/dL Ur Leukocyte Esterase (NEGATIVE) Urine RBC (0-2/HPF) Urine WBC (0-5/HPF) Ur Epithelial Cells (NONE-FEW) Amorphous Sediment (NEGATIVE) Urine Bacteria (NEGATIVE) Urine Mucus (NONE-MOD) Med Orders - Current: Current Medications Albuterol (Ventolin Hfa) 0 gm INH QID PRN PRN Reason: SOB/wheezing Bisacodyl (Dulcolax) 10 mg PO BID PRN PRN Reason: Constipation Diphenhydramine HCl (Benadryl) 50 mg PO Q6H PRN PRN Reason: Itching Last Admin: 05/17/19 00:35 Dose: 50 mg Heparin Sodium (Porcine) (Heparin Sodium) 5,000 units SUBCUT Q8H [facility] Last Admin: 05/18/19 05:20 Dose: Not Given Ibuprofen (Motrin) 800 mg PO Q6H PRN PRN Reason: Pain Last Admin: 05/18/19 05:50 Dose: 800 mg Insulin Aspart (Novolog) 0 unit SUBCUT Q4H [facility]; Protocol Last Admin: 05/18/19 08:09 Dose: 15 unit Lorazepam (Ativan) 1 mg PO QID PRN PRN Reason: Anxiety Last Admin: 05/17/19 00:59 Dose: 1 mg Ondansetron HCl (Zofran) 4 mg IVPUSH Q6H PRN PRN Reason: Nausea [place] Aspartate [ (Lithate] 300 Mg) 1 each PO BID [facility] Last Admin: 05/17/19 20:27 Dose: Not Given Trimethoprim/Sulfamethoxazole (Septra Ds) 1 tab PO BID [place] Last Admin: 05/17/19 20:31 Dose: 1 tab Discontinued Medications Bisacodyl (Dulcolax) 15 mg PO ONETIME ONE Stop: 05/16/19 15:27 Last Admin: 05/16/19 17:41 Dose: Not Given Diphenhydramine HCl (Benadryl) 25 mg IVPUSH ONETIME ONE Stop: 05/16/19 13:19 Last Admin: 05/16/19 13:22 Dose: 25 mg Diphenhydramine HCl (Benadryl) 50 mg PO Q6H PRN PRN Reason: Itching Diphenhydramine HCl (Benadryl) 25 mg IVPUSH ONETIME ONE Stop: 05/17/19 09:26 Last Admin: 05/17/19 09:58 Dose: 25 mg Diphenhydramine HCl (Benadryl) 25 mg IVPUSH ONETIME ONE Stop: 05/17/19 17:17 Last Admin: 05/17/19 18:00 Dose: 25 mg Sodium Chloride (Normal Saline) 1,000 mls @ 999 mls/hr IV STAT ONE Stop: 05/16/19 13:49 Last Admin: 05/16/19 13:15 Dose: 999 mls/hr Insulin Human Regular 100 unit (/ Sodium Chloride) 100 mls @ 5 mls/hr IV TITRATE [place]; Protocol Sodium Chloride (Normal Saline) 1,000 mls @ 999 mls/hr IV NOW STA Stop: 05/16/19 15:25 Last Admin: 05/16/19 14:39 Dose: 999 mls/hr Sodium Chloride (Normal Saline) 1,000 mls @ 150 mls/hr IV Q7H STA Stop: 05/16/19 22:42 Last Admin: 05/16/19 16:00 Dose: 150 mls/hr Insulin Human Regular (Novolin R) 10 unit IVPUSH ONETIME ONE; Protocol Stop: 05/16/19 12:52 Last Admin: 05/16/19 13:15 Dose: 10 units Insulin Human Regular (Novolin R) 10 unit SUBCUT NOW STA; Protocol Stop: 05/16/19 12:52 Last Admin: 05/16/19 13:18 Dose: 10 unit Insulin Human Regular (Novolin R) 10 unit IVPUSH ONETIME STA; Protocol Stop: 05/16/19 13:57 Last Admin: 05/16/19 14:00 Dose: 10 unit Insulin Human Regular (Novolin R) 10 unit SUBCUT ONETIME STA; Protocol Stop: 05/16/19 13:58 Last Admin: 05/16/19 14:01 Dose: 10 unit Ketorolac Tromethamine (Toradol) 15 mg IVPUSH Q6H PRN PRN Reason: Pain Stop: 05/21/19 15:30 Lorazepam (Ativan) 0.5 mg IVPUSH ONETIME ONE Stop: 05/16/19 13:13 Last Admin: 05/16/19 13:22 Dose: 0.5 mg Lorazepam (Ativan) 1 mg IVPUSH Q8H PRN PRN Reason: Anxiety Morphine Sulfate (Morphine) 2 mg IVPUSH ONETIME ONE Stop: 05/16/19 13:13 Last Admin: 05/16/19 13:22 Dose: 2 mg Morphine Sulfate (Morphine) 1 mg IVPUSH ONETIME ONE Stop: 05/16/19 14:46 Last Admin: 05/16/19 14:53 Dose: 1 mg Morphine Sulfate (Morphine) 2 mg IVPUSH Q4H PRN PRN Reason: Pain Last Admin: 05/17/19 01:00 Dose: 2 mg Morphine Sulfate (Morphine) 2 mg IVPUSH NOW ONE Stop: 05/17/19 09:26 Last Admin: 05/17/19 09:59 Dose: 2 mg Morphine Sulfate (Morphine) 1 mg IVPUSH ONETIME ONE Stop: 05/17/19 17:17 Last Admin: 05/17/19 18:04 Dose: 1 mg Ondansetron HCl (Zofran) 8 mg IVPUSH ONETIME ONE Stop: 05/16/19 12:50 Last Admin: 05/16/19 13:15 Dose: 8 mg Polyethylene Glycol (Miralax) 17 gm PO ONETIME ONE Stop: 05/16/19 15:27 Last Admin: 05/16/19 17:41 Dose: Not Given - Exam Quality Assessment: Denies: Supplemental Oxygen General: Reports: Alert, Oriented, Cooperative, No Acute Distress HEENT: Reports: Pupils Equal, Pupils Reactive, EOMI, Mucous Membr. Moist/[place] ( Very poor dentition) Neck: Reports: Supple, Trachea Midline Lungs: Reports: Clear to Auscultation, Normal Respiratory Effort Cardiovascular: Reports: Regular Rate, Regular Rhythm GI/Abdominal Exam: Normal Bowel Sounds, Soft, Non-Tender, No Distention. No: Guarding, Rigid, Rebound Back Exam: Reports: Normal Inspection, Full Range of Motion Extremities: Normal Inspection, Normal Range of Motion, No Pedal Edema Skin: Reports: Warm, Dry, Intact Neurological: Reports: No New Focal Deficit Psy/Mental Status: Reports: Alert, Normal Affect, Normal Mood
[2019-05-18] MEDS: Sulfamethoxazole/Trimethoprim 800-160 MG Tab PO SCH (09:32)
[2019-05-18] MEDS: LITHIUM ASPARTATE PO SCH (09:33)
== END 2019-05-18 09:55 | disposition home or self-care (01) | DRG 74 ==
LOC: MW.ED 12:48 → UNDOADMOB 14:08 → MW.MS 14:08 → MW.ICU 14:20 → MW.MS 05-17 09:30
PROVIDERS: ADMIT Internal Medicine; ATTEND Internal Medicine
DX: E10.43 Type 1 diabetes mellitus with diabetic autonomic (poly)neuropathy (principal); N39.0 Urinary tract infection, site not specified; K31.84 Gastroparesis; E10.65 Type 1 diabetes mellitus with hyperglycemia; F17.210 Nicotine dependence, cigarettes, uncomplicated; H54.7 Unspecified visual loss; E10.51 Type 1 diabetes mellitus with diabetic peripheral angiopathy without gangrene; J45.909 Unspecified asthma, uncomplicated; M19.91 Primary osteoarthritis, unspecified site; F41.9 Anxiety disorder, unspecified; F32.9 Major depressive disorder, single episode, unspecified; F25.0 Schizoaffective disorder, bipolar type; E53.8 Deficiency of other specified B group vitamins; E87.5 Hyperkalemia; Z88.8 Allergy status to other drugs, medicaments and biological substances; Z88.6 Allergy status to analgesic agent; Z88.1 Allergy status to other antibiotic agents; Z87.442 Personal history of urinary calculi; Z88.5 Allergy status to narcotic agent; Z90.49 Acquired absence of other specified parts of digestive tract; Z79.4 Long term (current) use of insulin; Z79.899 Other long term (current) drug therapy
CPT/HCPCS: 36415; 36600; 71045; 71045-26; 74019; 74019-26; 80048; 80053; 80305-QW; 81001; 81003; 82803; 82962; 83690; 83735; 85025; 85027; 93005; 96361; 96374; 96375; 96376; 99285-25; A9270-GY; J1200; J1642; J1815-GY; J2060; J2270; J2405; J3535-GY; J7040

== ENCOUNTER 2019-05-26 14:19 | Observation (INO) | payer MEDICAID ==
[2019-05-26] MEDS ORDERED: Ondansetron 4 MG/2 ML SDV IVPUSH ONE (14:20)
[2019-05-26] MEDS ORDERED: Sodium Chloride 0.9% 1,000 ML IV ONE ×2 (14:20→16:48)
--- NOTE | 2019-05-26 14:38 | EDM.PDOC ---
ED HPI GENERAL MEDICAL PROBLEM - General Chief Complaint: Diabetic Complaint Stated Complaint: AMB Time Seen by Provider: 05/26/19 14:20 Source of Information: Reports: Patient History Limitations: Reports: No Limitations - History of Present Illness INITIAL COMMENTS - FREE TEXT/NARRATIVE: HISTORY AND PHYSICAL: History of present illness: Patient is a 33-year-old female who is brought in today by EMS for concern of vomiting and high blood sugars. Patient states she has a history of type 1 diabetes and is poorly controlled. Patient states starting yesterday she began to have episodes of vomiting and states that she has as well today and has not been able to eat and drink. Patient states she does not use a pump and is supposed to use insulin pen for management. Patient states "her pump was taken away and she wasn't given a reason." Patient also complains of some vague mild abdominal pain but states she believes is due to vomiting. Patient denies fever, chills, chest pain, shortness of breath, or cough. Denies headache, neck stiff ness, change in vision, syncope, or near syncope. Denies diarrhea, constipation, or dysuria. Has not noted any blood in urine or stool. Review of systems: As per history of present illness and below otherwise all systems reviewed and negative. Past medical history: As per history of present illness and as reviewed below otherwise noncontributory. Surgical history: As per history of present illness and as reviewed below otherwise noncontributory. Social history: See social history for further information Family history: As per history of present illness and as reviewed below otherwise noncontributory. Physical exam: General: Patient is alert, oriented, and in no acute distress. Patient sitting comfortably on exam table.Patient appears older than stated age. HEENT: Atraumatic, normocephalic, pupils equal and reactive bilaterally, negative for conjunctival pallor or scleral icterus, mucous membrane dry and tacky with very poor dentition , TMs normal bilaterally, throat clear, neck supple, nontender, trachea midline. No drooling or trismus noted. No meningeal signs. No hot potato voice noted. Lungs: Clear to auscultation, breath sounds equal bilaterally, chest nontender. Heart: S1S2, regular rate and rhythm without overt murmur Abdomen: Soft, nondistended. Generalized mild pain to palpation of the abdomen without guarding or rebound. Negative for masses or hepatosplenomegaly. Negative for costovertebral tenderness. Pelvis: Stable nontender. Genitourinary: Deferred. Rectal: Deferred. Skin: Intact, warm, dry. No lesions or rashes noted. Extremities: Atraumatic, negative for cords or calf pain. Neurovascular unremarkable. Neuro: Awake, alert, oriented. Cranial nerves II through XII unremarkable. Cerebellum unremarkable. Motor and sensory unremarkable throughout. Exam nonfocal. Notes: Dr. Cope directly involved in patient care. Patient is combative towards nursing staff periodically throughout stay in ED. Dr. Coe consulted on patient and will admit to observation. Voices understanding and is agreeable to plan of care. Denies any further questions or concerns at this time. Diagnostics: CBC, CMP, UA, bedside glucose, EKG, blood ketones, chest x-ray, VBG, UDS ( Patient declines ABG) Therapeutics: Saline, zofran, insulin gtt, Benadryl (patient states Benadryl is only non narcotic medication that can help her pain as she is allergic to all others) Impression: Hyponatremia Hyperglycemia Type 1 diabetes, uncontrolled Plan: 1. Admit to observation to Dr. Coe. Definitive disposition and diagnosis as appropriate pending reevaluation and review of above. Lower Back Pain Score (Numeric/FACES): 4 - Related Data Allergies Allergy/AdvReac Type Severity Reaction Status Date / Time acetaminophen [From Tylenol] Allergy Other Verified 05/26/19 14:20 aspirin Allergy Other Verified 05/26/19 14:20 butorphanol [From Stadol] Allergy Hives Verified 05/26/19 14:20 ceftriaxone [From Rocephin] Allergy Hives Verified 05/26/19 14:20 cephalexin [From Keflex] Allergy Hives Verified 05/26/19 14:20 chamomile flower Allergy Other Verified 05/26/19 14:20 hydromorphone [From Dilaudid] Allergy Hives Verified 05/26/19 14:20 metoclopramide [From Reglan] Allergy Seizure Verified 05/26/19 14:20 orange Allergy Other Verified 05/26/19 14:20 polyethylene glycol 3350 Allergy Hives Verified 05/26/19 14:20 [From Miralax] buprenorphine [From Buprenex] AdvReac Hallucinati Verified 05/26/19 14:20 ons fentanyl AdvReac Hallucinati Verified 05/26/19 14:20 ons ketorolac [From Toradol] AdvReac Hallucinati Verified 05/26/19 14:20 ons morphine AdvReac Itching Verified 05/26/19 14:20 tramadol AdvReac Hallucinati Verified 05/26/19 14:20 ons Home Meds: Home Meds Insulin Degludec [Tresiba] 15 units INJECT ACDINNER 04/22/19 [History] Insulin Lispro [HumaLOG] 1 dose INJECT ASDIRECTED 04/22/19 [History] LORazepam [Ativan] 1 mg PO QID PRN 04/22/19 [History] [place] Aspartate [Lithate] 300 mg PO BID 04/22/19 [History] Albuterol [Ventolin HFA] 1 puff INH QID PRN 05/16/19 [History] Sulfamethoxazole/Trimethoprim [Septra DS] 1 tab PO BID #8 tablet 05/18/19 [Rx] Past Medical History HEENT History: Reports: Impaired Vision Other HEENT History: 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 Cardiovascular History: Reports: Other (See Below) Other Cardiovascular History: PAD Respiratory History: Reports: Asthma, Bronchitis, Recurrent, Pneumonia, Recurrent Gastrointestinal History: Reports: Other (See Below) Other Gastrointestinal History: Gastroparesis Genitourinary History: Reports: Renal Calculus, UTI, Recurrent 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: , Other (See Below) Other COMMERCIAL LOAN ASSISTANT History: coma for 8 days due to UTI/spesis Musculoskeletal History: Reports: Osteoarthritis, Other (See Below) Other Musculoskeletal History: muscular atrophy Neurological History: Reports: Neuropathy, Diabetic, Seizure Psychiatric History: Reports: Anxiety, Bipolar, Depression, Other (See Below) Other Psychiatric History: Schizoaffect disease, manic depressive Endocrine/Metabolic History: Reports: Diabetes, Type I Hematologic History: Reports: B12 Deficiency, Other (See Below) Other Hematologic History: hyponatremia Immunologic History: Reports: None Oncologic (Cancer) History: Reports: None Dermatologic History: Reports: Psoriasis - Infectious Disease History Infectious Disease History: Reports: C-Difficile, Extended Spectrum Beta- Lactamase (ESBL) Other Infectious Disease History: C-diff over 6 years ago; lyme disease - Past Surgical History HEENT Surgical History: Reports: None Cardiovascular Surgical History: Reports: Other (See Below) Other Cardiovascular Surgeries/Procedures: PDA corrected at age 4 Respiratory Surgical History: Reports: None GI Surgical History: Reports: Cholecystectomy, Esophageal Dilatation Female Surgical History: Reports: D&C Endocrine Surgical History: Reports: None Neurological Surgical History: Reports: None Musculoskeletal Surgical History: Reports: None Oncologic Surgical History: Reports: None Dermatological Surgical History: Reports: None Social & Family History - Family History Family Medical History: Noncontributory - Caffeine Use Caffeine Use: Reports: Coffee, Soda, Tea Caffeine Use Comment: 2 pots of coffee today; 3 pops a day - Living Situation & Occupation Living situation: Reports: with Significant Other Occupation: Unemployed ED ROS GENERAL - Review of Systems Review Of Systems: ROS reveals no pertinent complaints other than HPI. ED EXAM GENERAL NO PERIP PULSE - Physical Exam Exam: See Below (See dictation) Course - Vital Signs Last Recorded V/S: Last Vital Signs Temp 36.0 C 05/26/19 16:17 Pulse 94 05/26/19 16:17 Resp 18 05/26/19 14:21 BP 126/77 05/26/19 16:17 Pulse Ox 97 05/26/19 16:17 - Orders/Labs/Meds Orders: Active Orders 24 hr Category Date Time Status Admission Status [Patient Status] [ADT] Stat ADT 05/26/19 16:40 Ordered EKG Documentation Completion [RC] STAT Care 05/26/19 14:21 Active Glucose [Blood Glucose Check, Bedside] [RC] ONETIME Care 05/26/19 14:21 Active BLOOD GAS ARTERIAL [BG] Stat Lab 05/26/19 14:40 Received BLOOD GAS VENOUS [BG] Stat Lab 05/26/19 15:28 Ordered Insulin Regular, Human [NovoLIN R] 100 unit Med 05/26/19 16:15 Active Sodium Chloride 0.9% [Normal Saline] 99 ml IV TITRATE Sodium Chloride 0.9% [Normal Saline] 1,000 ml Med 05/26/19 16:48 Active IV .Bolus Medication Orders Insulin Human Regular 100 unit (/ Sodium Chloride) 100 mls @ 7 mls/hr IV TITRATE DIEGO; Protocol Sodium Chloride (Normal Saline) 1,000 mls @ 999 mls/hr IV .Bolus ONE Stop: 05/26/19 17:48 Labs: Laboratory Tests 08/28/19 08/28/19 08/28/19 Range/Units 14:01 14:01 14:21 WBC (4.0-11.0) K/uL RBC (4.30-5.90) M/uL Hgb (12.0-16.0) g/dL Hct (36.0-46.0) % MCV (80.0-98.0) fL MCH (27.0-32.0) pg MCHC (31.0-37.0) g/dL RDW Std Deviation (28.0-62.0) fl RDW Coeff of Krystina (11.0-15.0) % Plt Count (150-400) K/uL MPV (7.40-12.00) fL Neut % (Auto) (48.0-80.0) % Lymph % (Auto) (16.0-40.0) % [place] % (Auto) (0.0-15.0) % Eos % (Auto) (0.0-7.0) % Baso % (Auto) (0.0-1.5) % Neut # (Auto) (1.4-5.7) K/uL Lymph # (Auto) (0.6-2.4) K/uL [place] # (Auto) (0.0-0.8) K/uL Eos # (Auto) (0.0-0.7) K/uL Baso # (Auto) (0.0-0.1) K/uL Nucleated RBC % /100WBC Nucleated RBCs # K/uL VBG pH (7.31-7.41) VBG pCO2 (35-45) mmHG VBG pO2 (30-40) mmHG VBG HCO3 (22-30) mEq/L VBG Total CO2 (41-51) mmol/L VBG Base Excess (-3.0-3.0) Sodium (136-145) mmol/L Potassium (3.5-5.1) mmol/L Chloride (98-107) mmol/L Carbon Dioxide (21.0-32.0) mmol/L BUN (7.0-18.0) mg/dL Creatinine (0.6-1.0) mg/dL Est Cr Clr Drug Dosing mL/min Estimated GFR (MDRD) ml/min Glucose (74-106) mg/dL POC Glucose (60-110) mg/dL Calcium (8.5-10.1) mg/dL Total Bilirubin (0.2-1.0) mg/dL AST (15-37) IU/L ALT (14-63) IU/L Alkaline Phosphatase (46-116) U/L Total Protein (6.4-8.2) g/dL Albumin (3.4-5.0) g/dL Globulin (2.6-4.0) g/dL Albumin/Globulin Ratio (0.9-1.6) Lipase (73-393) U/L Urine Color YELLOW Urine Appearance CLEAR Urine pH 6.0 (5.0-8.0) Ur Specific [place] <= 1.005 (1.001-1.035) Urine Protein NEGATIVE (NEGATIVE) mg/dL Urine Glucose (UA) >=1000 (NEGATIVE) mg/dL Urine Ketones TRACE H (NEGATIVE) mg/dL Urine Occult Blood NEGATIVE (NEGATIVE) Urine Nitrite NEGATIVE (NEGATIVE) Urine Bilirubin NEGATIVE (NEGATIVE) Urine Urobilinogen 0.2 (<2.0) EU/dL Ur Leukocyte Esterase NEGATIVE (NEGATIVE) Urine HCG, Qual NEGATIVE (NEGATIVE) Urine Opiates Screen NEGATIVE (NEGATIVE) Ur Oxycodone Screen NEGATIVE (NEGATIVE) Urine Methadone Screen NEGATIVE (NEGATIVE) Ur Barbiturates Screen NEGATIVE (NEGATIVE) Ur Phencyclidine Scrn NEGATIVE (NEGATIVE) Ur Amphetamine Screen NEGATIVE (NEGATIVE) U Methamphetamines Scrn NEGATIVE (NEGATIVE) U Benzodiazepines Scrn NEGATIVE (NEGATIVE) U Cocaine Metab Screen NEGATIVE (NEGATIVE) U Marijuana (THC) Screen NEGATIVE (NEGATIVE) Ketones (NEG) 05/26/19 05/26/19 05/26/19 Range/Units 14:25 14:40 14:40 WBC 8.73 (4.0-11.0) K/uL RBC 4.19 L (4.30-5.90) M/uL Hgb 12.1 (12.0-16.0) g/dL Hct 38.6 (36.0-46.0) % MCV 92.1 (80.0-98.0) fL MCH 28.9 (27.0-32.0) pg MCHC 31.3 (31.0-37.0) g/dL RDW Std Deviation 53.8 (28.0-62.0) fl RDW Coeff of Krystina 16 H (11.0-15.0) % Plt Count 352 (150-400) K/uL MPV 11.90 (7.40-12.00) fL Neut % (Auto) 72.3 (48.0-80.0) % Lymph % (Auto) 18.3 (16.0-40.0) % [place] % (Auto) 6.5 (0.0-15.0) % Eos % (Auto) 2.2 (0.0-7.0) % Baso % (Auto) 0.7 (0.0-1.5) % Neut # (Auto) 6.3 H (1.4-5.7) K/uL Lymph # (Auto) 1.6 (0.6-2.4) K/uL [place] # (Auto) 0.6 (0.0-0.8) K/uL Eos # (Auto) 0.2 (0.0-0.7) K/uL Baso # (Auto) 0.1 (0.0-0.1) K/uL Nucleated RBC % 0.0 /100WBC Nucleated RBCs # 0 K/uL VBG pH (7.31-7.41) VBG pCO2 (35-45) mmHG VBG pO2 (30-40) mmHG VBG HCO3 (22-30) mEq/L VBG Total CO2 (41-51) mmol/L VBG Base Excess (-3.0-3.0) Sodium 115 L* (136-145) mmol/L Potassium 5.5 H (3.5-5.1) mmol/L Chloride 81 L (98-107) mmol/L Carbon Dioxide 21.4 (21.0-32.0) mmol/L BUN 38 H (7.0-18.0) mg/dL Creatinine 1.4 H (0.6-1.0) mg/dL Est Cr Clr Drug Dosing 51.91 mL/min Estimated GFR (MDRD) 43.6 ml/min Glucose 1208 H* (74-106) mg/dL POC Glucose > 500 H (60-110) mg/dL Calcium 9.1 (8.5-10.1) mg/dL Total Bilirubin 0.8 (0.2-1.0) mg/dL AST 76 H (15-37) IU/L ALT 114 H (14-63) IU/L Alkaline Phosphatase 195 H (46-116) U/L Total Protein 6.9 (6.4-8.2) g/dL Albumin 3.6 (3.4-5.0) g/dL Globulin 3.3 (2.6-4.0) g/dL Albumin/Globulin Ratio 1.1 (0.9-1.6) Lipase (73-393) U/L Urine Color Urine Appearance Urine pH (5.0-8.0) Ur Specific [place] (1.001-1.035) Urine Protein (NEGATIVE) mg/dL Urine Glucose (UA) (NEGATIVE) mg/dL Urine Ketones (NEGATIVE) mg/dL Urine Occult Blood (NEGATIVE) Urine Nitrite (NEGATIVE) Urine Bilirubin (NEGATIVE) Urine Urobilinogen (<2.0) EU/dL Ur Leukocyte Esterase (NEGATIVE) Urine HCG, Qual (NEGATIVE) Urine Opiates Screen (NEGATIVE) Ur Oxycodone Screen (NEGATIVE) Urine Methadone Screen (NEGATIVE) Ur Barbiturates Screen (NEGATIVE) Ur Phencyclidine Scrn (NEGATIVE) Ur Amphetamine Screen (NEGATIVE) U Methamphetamines Scrn (NEGATIVE) U Benzodiazepines Scrn (NEGATIVE) U Cocaine Metab Screen (NEGATIVE) U Marijuana (THC) Screen (NEGATIVE) Ketones (NEG) 05/26/19 05/26/19 05/26/19 Range/Units 14:40 14:40 15:24 WBC (4.0-11.0) K/uL RBC (4.30-5.90) M/uL Hgb (12.0-16.0) g/dL Hct (36.0-46.0) % MCV (80.0-98.0) fL MCH (27.0-32.0) pg MCHC (31.0-37.0) g/dL RDW Std Deviation (28.0-62.0) fl RDW Coeff of Krystina (11.0-15.0) % Plt Count (150-400) K/uL MPV (7.40-12.00) fL Neut % (Auto) (48.0-80.0) % Lymph % (Auto) (16.0-40.0) % [place] % (Auto) (0.0-15.0) % Eos % (Auto) (0.0-7.0) % Baso % (Auto) (0.0-1.5) % Neut # (Auto) (1.4-5.7) K/uL Lymph # (Auto) (0.6-2.4) K/uL [place] # (Auto) (0.0-0.8) K/uL Eos # (Auto) (0.0-0.7) K/uL Baso # (Auto) (0.0-0.1) K/uL Nucleated RBC % /100WBC Nucleated RBCs # K/uL VBG pH 7.33 (7.31-7.41) VBG pCO2 42 (35-45) mmHG VBG pO2 36 (30-40) mmHG VBG HCO3 22 (22-30) mEq/L VBG Total CO2 21 L (41-51) mmol/L VBG Base Excess -3.7 L (-3.0-3.0) Sodium (136-145) mmol/L Potassium (3.5-5.1) mmol/L Chloride (98-107) mmol/L Carbon Dioxide (21.0-32.0) mmol/L BUN (7.0-18.0) mg/dL Creatinine (0.6-1.0) mg/dL Est Cr Clr Drug Dosing mL/min Estimated GFR (MDRD) ml/min Glucose (74-106) mg/dL POC Glucose (60-110) mg/dL Calcium (8.5-10.1) mg/dL Total Bilirubin (0.2-1.0) mg/dL AST (15-37) IU/L ALT (14-63) IU/L Alkaline Phosphatase (46-116) U/L Total Protein (6.4-8.2) g/dL Albumin (3.4-5.0) g/dL Globulin (2.6-4.0) g/dL Albumin/Globulin Ratio (0.9-1.6) Lipase 248 (73-393) U/L Urine Color Urine Appearance Urine pH (5.0-8.0) Ur Specific [place] (1.001-1.035) Urine Protein (NEGATIVE) mg/dL Urine Glucose (UA) (NEGATIVE) mg/dL Urine Ketones (NEGATIVE) mg/dL Urine Occult Blood (NEGATIVE) Urine Nitrite (NEGATIVE) Urine Bilirubin (NEGATIVE) Urine Urobilinogen (<2.0) EU/dL Ur Leukocyte Esterase (NEGATIVE) Urine HCG, Qual (NEGATIVE) Urine Opiates Screen (NEGATIVE) Ur Oxycodone Screen (NEGATIVE) Urine Methadone Screen (NEGATIVE) Ur Barbiturates Screen (NEGATIVE) Ur Phencyclidine Scrn (NEGATIVE) Ur Amphetamine Screen (NEGATIVE) U Methamphetamines Scrn (NEGATIVE) U Benzodiazepines Scrn (NEGATIVE) U Cocaine Metab Screen (NEGATIVE) U Marijuana (THC) Screen (NEGATIVE) Ketones SMALL H (NEG) Meds: Medications Generic Name Dose Route Start Last Admin Trade Name Freq PRN Reason Stop Dose Admin Insulin Human Regular 100 unit 100 mls @ 7 mls/hr 05/26/19 16:15 / Sodium Chloride IV TITRATE DIEGO Protocol 7 UNIT/HR Sodium Chloride 1,000 mls @ 999 mls/hr 05/26/19 16:48 Normal Saline IV 05/26/19 17:48 .Bolus ONE Discontinued Medications Generic Name Dose Route Start Last Admin Trade Name Freq PRN Reason Stop Dose Admin Diphenhydramine HCl 25 mg 05/26/19 16:04 05/26/19 16:30 Benadryl IVPUSH 05/26/19 16:05 25 mg ONETIME ONE Administration Sodium Chloride 1,000 mls @ 999 mls/hr 05/26/19 14:20 05/26/19 15:22 Normal Saline IV 05/26/19 15:20 999 mls/hr BOLUS ONE Administration Ondansetron HCl 4 mg 05/26/19 14:20 05/26/19 15:22 Zofran IVPUSH 05/26/19 14:21 4 mg ONETIME ONE Administration Departure - Departure Time of Disposition: 16:53 Disposition: Refer to Observation Clinical Impression: Hyperglycemia, Hyponatremia - Discharge Information - My Orders Last 24 Hours: My Active Orders 05/26/19 14:21 EKG Documentation Completion [RC] STAT Glucose [Blood Glucose Check, Bedside] [RC] ONETIME 05/26/19 14:40 BLOOD GAS ARTERIAL [BG] Stat 05/26/19 15:28 BLOOD GAS VENOUS [BG] Stat 05/26/19 16:15 Insulin Regular, Human [NovoLIN R] 100 unit Sodium Chloride 0.9% [Normal Saline] 99 ml IV TITRATE 05/26/19 16:40 Admission Status [Patient Status] [ADT] Stat 05/26/19 16:48 Sodium Chloride 0.9% [Normal Saline] 1,000 ml IV .Bolus - Assessment/Plan Last 24 Hours: My Active Orders 05/26/19 14:21 EKG Documentation Completion [RC] STAT Glucose [Blood Glucose Check, Bedside] [RC] ONETIME 05/26/19 14:40 BLOOD GAS ARTERIAL [BG] Stat 05/26/19 15:28 BLOOD GAS VENOUS [BG] Stat 05/26/19 16:15 Insulin Regular, Human [NovoLIN R] 100 unit Sodium Chloride 0.9% [Normal Saline] 99 ml IV TITRATE 05/26/19 16:40 Admission Status [Patient Status] [ADT] Stat 05/26/19 16:48 Sodium Chloride 0.9% [Normal Saline] 1,000 ml IV .Bolus
[2019-05-26] MEDS ORDERED: diphenhydrAMINE 50 MG/ML SDV IVPUSH ONE (16:04)
--- NOTE | 2019-05-26 16:14 | CR ---
INDICATION: DKA. TECHNIQUE: Upright portable AP image of the chest. COMPARISON: 05/16/2019. FINDINGS: No change in comparison to the previous exam. Lungs and pleural spaces clear. Heart, mediastinum, and pulmonary vessels within normal limits. Port-A-Cath in the SVC. No significant bony abnormality. IMPRESSION: Negative and unchanged. Dictated by Edenilson Freire MD @ May 26 2019 4:12PM Signed by Dr. Edenilson Freire @ May 26 2019 4:13PM
--- NOTE | 2019-05-26 18:36 | PCM.HP.2 ---
H&P History of Present Illness - General Date of Service: 05/26/19 Admit Problem/Dx: Admission Diagnosis/Problem Admission Diagnosis/Problem Hyponatremia/Hyperglycemia Patient is an uncooperative, anxious and non-compliant patient w/ significant PMH of type I diabetes, bipolar disorder ; presenting today w/ persistent non- bilious vomiting , abdominal cramping. Was initially seen in ED, was combative and non-compliant w/ nursing/medical staff. Requesting ativan for her "brain". pt. has an extensive history of non-compliance, leaving AMA and and being generally aggressive to all therapeutics. ED course: pt. Bedside: pt. seen at bedside. Refusing to answer questions about general health and events leading upto ED visit. States "no one is given her any ativan even though that helps a alot; needs that cause I need my "brain to cool off". On repeat examination, pt. mentions Nausea + vomiting x 1 -day; thus causing her to not take her psych meds : lithium and seroquel. Otherwise was feeling some low back pain in the "kidney area", foul smelling urine and spasming of her abdomen. States having a history of gastroparesis but states this time it feels different. Source of Information: Patient History Limitations: Reports: Uncooperative - History of Present Illness Onset of Symptoms: Reports: Today Lower Back Pain Score (Numeric/FACES): 4 - Related Data Allergies/Adverse Reactions: Allergies Allergy/AdvReac Type Severity Reaction Status Date / Time acetaminophen [From Tylenol] Allergy Other Verified 05/26/19 14:20 aspirin Allergy Other Verified 05/26/19 14:20 butorphanol [From Stadol] Allergy Hives Verified 05/26/19 14:20 ceftriaxone [From Rocephin] Allergy Hives Verified 05/26/19 14:20 cephalexin [From Keflex] Allergy Hives Verified 05/26/19 14:20 chamomile flower Allergy Other Verified 05/26/19 14:20 hydromorphone [From Dilaudid] Allergy Hives Verified 05/26/19 14:20 metoclopramide [From Reglan] Allergy Seizure Verified 05/26/19 14:20 orange Allergy Other Verified 05/26/19 14:20 polyethylene glycol 3350 Allergy Hives Verified 05/26/19 14:20 [From Miralax] buprenorphine [From Buprenex] AdvReac Hallucinati Verified 05/26/19 14:20 ons fentanyl AdvReac Hallucinati Verified 05/26/19 14:20 ons ketorolac [From Toradol] AdvReac Hallucinati Verified 05/26/19 14:20 ons morphine AdvReac Itching Verified 05/26/19 14:20 tramadol AdvReac Hallucinati Verified 05/26/19 14:20 ons Home Medications: Home Meds Insulin Degludec [Tresiba] 15 units INJECT ACDINNER 04/22/19 [History] Insulin Lispro [HumaLOG] 1 dose INJECT ASDIRECTED 04/22/19 [History] LORazepam [Ativan] 1 mg PO QID PRN 04/22/19 [History] [place] Aspartate [Lithate] 300 mg PO BID 04/22/19 [History] Albuterol [Ventolin HFA] 1 puff INH QID PRN 05/16/19 [History] Sulfamethoxazole/Trimethoprim [Septra DS] 1 tab PO BID #8 tablet 05/18/19 [Rx] Past Medical History HEENT History: Reports: Impaired Vision Other HEENT History: 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 Cardiovascular History: Reports: Other (See Below) Other Cardiovascular History: PAD Respiratory History: Reports: Asthma, Bronchitis, Recurrent, Pneumonia, Recurrent Gastrointestinal History: Reports: Other (See Below) (Gastroparesis) Other Gastrointestinal History: Gastroparesis Genitourinary History: Reports: Renal Calculus, UTI, Recurrent 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: , Other (See Below) Other OB/BYN History: coma for 8 days due to UTI/spesis Musculoskeletal History: Reports: Osteoarthritis, Other (See Below) Other Musculoskeletal History: muscular atrophy Neurological History: Reports: Neuropathy, Diabetic, Seizure Psychiatric History: Reports: Anxiety, Bipolar, Depression, Other (See Below) Other Psychiatric History: Schizoaffect disease, manic depressive Endocrine/Metabolic History: Reports: Diabetes, Type I Hematologic History: Reports: B12 Deficiency, Other (See Below) Other Hematologic History: hyponatremia Immunologic History: Reports: None Oncologic (Cancer) History: Reports: None Dermatologic History: Reports: Psoriasis - Infectious Disease History Infectious Disease History: Reports: C-Difficile, Extended Spectrum Beta- Lactamase (ESBL) Other Infectious Disease History: C-diff over 6 years ago; lyme disease - Past Surgical History HEENT Surgical History: Reports: None Cardiovascular Surgical History: Reports: Other (See Below) Other Cardiovascular Surgeries/Procedures: PDA corrected at age 4 Respiratory Surgical History: Reports: None GI Surgical History: Reports: Cholecystectomy, Esophageal Dilatation Female Surgical History: Reports: D&C Endocrine Surgical History: Reports: None Neurological Surgical History: Reports: None Musculoskeletal Surgical History: Reports: None Oncologic Surgical History: Reports: None Dermatological Surgical History: Reports: None Social & Family History - Family History Family Medical History: Noncontributory - Tobacco Use Smoking Status *Q: Current Every Day Smoker Years of Tobacco use: 15 Packs/Tins Daily: 0.5 - Caffeine Use Caffeine Use: Reports: Coffee, Soda, Tea Caffeine Use Comment: 2 pots of coffee today; 3 pops a day - Recreational Drug Use Recreational Drug Use: No - Living Situation & Occupation Living situation: Reports: with Significant Other Occupation: Unemployed H&P Review of Systems - Review of Systems: Review Of Systems: See Below General: Denies: Fever, Chills Pulmonary: Denies: Shortness of Breath, Cough Cardiovascular: Denies: Chest Pain, Palpitations Gastrointestinal: Reports: Abdominal Pain, Diarrhea, Nausea, Vomiting. Denies: Constipation, Hematochezia Genitourinary: Reports: Other (foul smell). Denies: Dysuria, Frequency, Burning Musculoskeletal: Reports: Back Pain ("kidney area" ) Skin: Reports: No Symptoms Psychiatric: Reports: Mood Lability, Anxiety, Agitation. Denies: Suicidal Ideation, Homicidal Ideation Neurological: Reports: Headache. Denies: Syncope Exam - Exam Exam: See Below - Vital Signs Vital Signs: Last Vital Signs Temp 97 F 05/26/19 17:20 Pulse 91 05/26/19 17:20 Resp 13 05/26/19 17:20 BP 122/57 L 05/26/19 17:20 Pulse Ox 98 05/26/19 17:20 Weight: 154 lb - Exam General: Alert, Oriented, Other (non-compliant with examination; refusing abdominal exam currently. Touched shoulder to show understanding ; jerked away and asked for food. Repeat examination ; became more compliant ; proceeded w/ general physical. ) HEENT: EOMI, Pupils Equal Neck: Supple, Trachea Midline Lungs: Clear to Auscultation, Normal Respiratory Effort Cardiovascular: Regular Rate, Regular Rhythm GI/Abdominal Exam: Other (mild diffuse tenderness ) Back Exam: No: CVA Tenderness (L), CVA Tenderness (R) Extremities: Normal Inspection Skin: Warm, Dry, Intact Neurological: Cranial Nerves Intact Neuro Extensive - Mental Status: Alert, Oriented x3 Neuro Extensive - Motor, Sensory, Reflexes: Normal Gait Psychiatric: Alert, Labile Mood, Anxious, Agitated - Patient Data Lab Results Last 24 hrs: Laboratory Results - last 24 hr 05/26/19 05/26/19 05/26/19 Range/Units 14:01 14:01 14:21 WBC (4.0-11.0) K/uL RBC (4.30-5.90) M/uL Hgb (12.0-16.0) g/dL Hct (36.0-46.0) % MCV (80.0-98.0) fL MCH (27.0-32.0) pg MCHC (31.0-37.0) g/dL RDW Std Deviation (28.0-62.0) fl RDW Coeff of Krystina (11.0-15.0) % Plt Count (150-400) K/uL MPV (7.40-12.00) fL Neut % (Auto) (48.0-80.0) % Lymph % (Auto) (16.0-40.0) % [place] % (Auto) (0.0-15.0) % Eos % (Auto) (0.0-7.0) % Baso % (Auto) (0.0-1.5) % Neut # (Auto) (1.4-5.7) K/uL Lymph # (Auto) (0.6-2.4) K/uL [place] # (Auto) (0.0-0.8) K/uL Eos # (Auto) (0.0-0.7) K/uL Baso # (Auto) (0.0-0.1) K/uL Nucleated RBC % /100WBC Nucleated RBCs # K/uL VBG pH (7.31-7.41) VBG pCO2 (35-45) mmHG VBG pO2 (30-40) mmHG VBG HCO3 (22-30) mEq/L VBG Total CO2 (41-51) mmol/L VBG Base Excess (-3.0-3.0) Sodium (136-145) mmol/L Potassium (3.5-5.1) mmol/L Chloride (98-107) mmol/L Carbon Dioxide (21.0-32.0) mmol/L BUN (7.0-18.0) mg/dL Creatinine (0.6-1.0) mg/dL Est Cr Clr Drug Dosing mL/min Estimated GFR (MDRD) ml/min Glucose (74-106) mg/dL POC Glucose (60-110) mg/dL Calcium (8.5-10.1) mg/dL Total Bilirubin (0.2-1.0) mg/dL AST (15-37) IU/L ALT (14-63) IU/L Alkaline Phosphatase (46-116) U/L Total Protein (6.4-8.2) g/dL Albumin (3.4-5.0) g/dL Globulin (2.6-4.0) g/dL Albumin/Globulin Ratio (0.9-1.6) Lipase (73-393) U/L Urine Color YELLOW Urine Appearance CLEAR Urine pH 6.0 (5.0-8.0) Ur Specific [place] <= 1.005 (1.001-1.035) Urine Protein NEGATIVE (NEGATIVE) mg/dL Urine Glucose (UA) >=1000 (NEGATIVE) mg/dL Urine Ketones TRACE H (NEGATIVE) mg/dL Urine Occult Blood NEGATIVE (NEGATIVE) Urine Nitrite NEGATIVE (NEGATIVE) Urine Bilirubin NEGATIVE (NEGATIVE) Urine Urobilinogen 0.2 (<2.0) EU/dL Ur Leukocyte Esterase NEGATIVE (NEGATIVE) Urine HCG, Qual NEGATIVE (NEGATIVE) Urine Opiates Screen NEGATIVE (NEGATIVE) Ur Oxycodone Screen NEGATIVE (NEGATIVE) Urine Methadone Screen NEGATIVE (NEGATIVE) Ur Barbiturates Screen NEGATIVE (NEGATIVE) Ur Phencyclidine Scrn NEGATIVE (NEGATIVE) Ur Amphetamine Screen NEGATIVE (NEGATIVE) U Methamphetamines Scrn NEGATIVE (NEGATIVE) U Benzodiazepines Scrn NEGATIVE (NEGATIVE) U Cocaine Metab Screen NEGATIVE (NEGATIVE) U Marijuana (THC) Screen NEGATIVE (NEGATIVE) Ketones (NEG) 05/26/19 05/26/19 05/26/19 Range/Units 14:25 14:40 14:40 WBC 8.73 (4.0-11.0) K/uL RBC 4.19 L (4.30-5.90) M/uL Hgb 12.1 (12.0-16.0) g/dL Hct 38.6 (36.0-46.0) % MCV 92.1 (80.0-98.0) fL MCH 28.9 (27.0-32.0) pg MCHC 31.3 (31.0-37.0) g/dL RDW Std Deviation 53.8 (28.0-62.0) fl RDW Coeff of Krystina 16 H (11.0-15.0) % Plt Count 352 (150-400) K/uL MPV 11.90 (7.40-12.00) fL Neut % (Auto) 72.3 (48.0-80.0) % Lymph % (Auto) 18.3 (16.0-40.0) % [place] % (Auto) 6.5 (0.0-15.0) % Eos % (Auto) 2.2 (0.0-7.0) % Baso % (Auto) 0.7 (0.0-1.5) % Neut # (Auto) 6.3 H (1.4-5.7) K/uL Lymph # (Auto) 1.6 (0.6-2.4) K/uL [place] # (Auto) 0.6 (0.0-0.8) K/uL Eos # (Auto) 0.2 (0.0-0.7) K/uL Baso # (Auto) 0.1 (0.0-0.1) K/uL Nucleated RBC % 0.0 /100WBC Nucleated RBCs # 0 K/uL VBG pH (7.31-7.41) VBG pCO2 (35-45) mmHG VBG pO2 (30-40) mmHG VBG HCO3 (22-30) mEq/L VBG Total CO2 (41-51) mmol/L VBG Base Excess (-3.0-3.0) Sodium 115 L* (136-145) mmol/L Potassium 5.5 H (3.5-5.1) mmol/L Chloride 81 L (98-107) mmol/L Carbon Dioxide 21.4 (21.0-32.0) mmol/L BUN 38 H (7.0-18.0) mg/dL Creatinine 1.4 H (0.6-1.0) mg/dL Est Cr Clr Drug Dosing 51.91 mL/min Estimated GFR (MDRD) 43.6 ml/min Glucose 1208 H* (74-106) mg/dL POC Glucose > 500 H (60-110) mg/dL Calcium 9.1 (8.5-10.1) mg/dL Total Bilirubin 0.8 (0.2-1.0) mg/dL AST 76 H (15-37) IU/L ALT 114 H (14-63) IU/L Alkaline Phosphatase 195 H (46-116) U/L Total Protein 6.9 (6.4-8.2) g/dL Albumin 3.6 (3.4-5.0) g/dL Globulin 3.3 (2.6-4.0) g/dL Albumin/Globulin Ratio 1.1 (0.9-1.6) Lipase (73-393) U/L Urine Color Urine Appearance Urine pH (5.0-8.0) Ur Specific [place] (1.001-1.035) Urine Protein (NEGATIVE) mg/dL Urine Glucose (UA) (NEGATIVE) mg/dL Urine Ketones (NEGATIVE) mg/dL Urine Occult Blood (NEGATIVE) Urine Nitrite (NEGATIVE) Urine Bilirubin (NEGATIVE) Urine Urobilinogen (<2.0) EU/dL Ur Leukocyte Esterase (NEGATIVE) Urine HCG, Qual (NEGATIVE) Urine Opiates Screen (NEGATIVE) Ur Oxycodone Screen (NEGATIVE) Urine Methadone Screen (NEGATIVE) Ur Barbiturates Screen (NEGATIVE) Ur Phencyclidine Scrn (NEGATIVE) Ur Amphetamine Screen (NEGATIVE) U Methamphetamines Scrn (NEGATIVE) U Benzodiazepines Scrn (NEGATIVE) U Cocaine Metab Screen (NEGATIVE) U Marijuana (THC) Screen (NEGATIVE) Ketones (NEG) 05/26/19 05/26/19 05/26/19 Range/Units 14:40 14:40 15:24 WBC (4.0-11.0) K/uL RBC (4.30-5.90) M/uL Hgb (12.0-16.0) g/dL Hct (36.0-46.0) % MCV (80.0-98.0) fL MCH (27.0-32.0) pg MCHC (31.0-37.0) g/dL RDW Std Deviation (28.0-62.0) fl RDW Coeff of Krystina (11.0-15.0) % Plt Count (150-400) K/uL MPV (7.40-12.00) fL Neut % (Auto) (48.0-80.0) % Lymph % (Auto) (16.0-40.0) % [place] % (Auto) (0.0-15.0) % Eos % (Auto) (0.0-7.0) % Baso % (Auto) (0.0-1.5) % Neut # (Auto) (1.4-5.7) K/uL Lymph # (Auto) (0.6-2.4) K/uL [place] # (Auto) (0.0-0.8) K/uL Eos # (Auto) (0.0-0.7) K/uL Baso # (Auto) (0.0-0.1) K/uL Nucleated RBC % /100WBC Nucleated RBCs # K/uL VBG pH 7.33 (7.31-7.41) VBG pCO2 42 (35-45) mmHG VBG pO2 36 (30-40) mmHG VBG HCO3 22 (22-30) mEq/L VBG Total CO2 21 L (41-51) mmol/L VBG Base Excess -3.7 L (-3.0-3.0) Sodium (136-145) mmol/L Potassium (3.5-5.1) mmol/L Chloride (98-107) mmol/L Carbon Dioxide (21.0-32.0) mmol/L BUN (7.0-18.0) mg/dL Creatinine (0.6-1.0) mg/dL Est Cr Clr Drug Dosing mL/min Estimated GFR (MDRD) ml/min Glucose (74-106) mg/dL POC Glucose (60-110) mg/dL Calcium (8.5-10.1) mg/dL Total Bilirubin (0.2-1.0) mg/dL AST (15-37) IU/L ALT (14-63) IU/L Alkaline Phosphatase (46-116) U/L Total Protein (6.4-8.2) g/dL Albumin (3.4-5.0) g/dL Globulin (2.6-4.0) g/dL Albumin/Globulin Ratio (0.9-1.6) Lipase 248 (73-393) U/L Urine Color Urine Appearance Urine pH (5.0-8.0) Ur Specific [place] (1.001-1.035) Urine Protein (NEGATIVE) mg/dL Urine Glucose (UA) (NEGATIVE) mg/dL Urine Ketones (NEGATIVE) mg/dL Urine Occult Blood (NEGATIVE) Urine Nitrite (NEGATIVE) Urine Bilirubin (NEGATIVE) Urine Urobilinogen (<2.0) EU/dL Ur Leukocyte Esterase (NEGATIVE) Urine HCG, Qual (NEGATIVE) Urine Opiates Screen (NEGATIVE) Ur Oxycodone Screen (NEGATIVE) Urine Methadone Screen (NEGATIVE) Ur Barbiturates Screen (NEGATIVE) Ur Phencyclidine Scrn (NEGATIVE) Ur Amphetamine Screen (NEGATIVE) U Methamphetamines Scrn (NEGATIVE) U Benzodiazepines Scrn (NEGATIVE) U Cocaine Metab Screen (NEGATIVE) U Marijuana (THC) Screen (NEGATIVE) Ketones SMALL H (NEG) Result Diagrams: 05/26/19 14:40 05/26/19 14:40 Problem List Initiated/Reviewed/Updated: Yes Orders Last 24hrs: Active Orders 24 hr Category Date Time Status Admission Status [Patient Status] [ADT] Stat ADT 05/26/19 16:40 Active Insulin Regular, Human [NovoLIN R] 100 unit Med 05/26/19 16:15 Active Sodium Chloride 0.9% [Normal Saline] 99 ml IV TITRATE Medication Orders Insulin Human Regular 100 unit (/ Sodium Chloride) 100 mls @ 7 mls/hr IV TITRATE DIEGO; Protocol Last Admin: 05/26/19 16:53 Dose: 7 unit/hr, 7 mls/hr 1. Hyperglycemia-pseudohyponatremia in a type I Diabetic 2. Non-compliant patient 3. Manic Depressive Bipolar Assessment/Plan Comment:: 1. Currently on Insulin drip 7units/hourly; accu-checks hourly; will readjust insulin rate/regimen once less than 500. Will consider serial BMP if glucose is not responding adequately. 2. Admit for observation. Vitals per routine. Full code. up ad alex. Diabetic diet. Ordering diet as pt. is not in DKA and is more compliant when food is ordered. 3. Continue psych meds of [place] 300 mg BID and ativan 1mg TID PRN. pt. is refusing consultation w/ Tele-psych. Will reassess in AM. 4. Repeat labs in AM: CBC,CMP. UA currently negative;
[2019-05-26] MEDS ORDERED: LORazepam 2 MG/ML SDV IVPUSH ONE (18:46)
[2019-05-26] MEDS ORDERED: Albuterol HFA 18 Gm Inhaler INH PRN (19:30)
[2019-05-26] MEDS ORDERED: LORazepam 1 MG Tab PO PRN (19:47)
[2019-05-27] MEDS ORDERED: Insulin Aspart 100 Units/ML 3 ML Pen SUBCUT ONE (01:00)
[2019-05-27 06:38] LABS: CHLORIDE,CL 98 mmol/L (98-107); SODIUM,NA 133 mmol/L (136-145)
[2019-05-27] MEDS ORDERED: Insulin Aspart 100 Units/ML 3 ML Pen SUBCUT SCH (07:30)
[2019-05-27] MEDS: Lithium Carbonate 300 MG Cap PO SCH ×2 (08:22)
--- NOTE | 2019-05-27 09:13 | PCM.DCSUM1 ---
<Siddhartha Moise - Last Filed: 05/27/19 10:44> Discharge Summary - Hospital Course Free Text/Narrative:: Discharge summary Admission date May 26, 2019 Discharge date Patient left AMA May 27, 2019 Admission diagnoses: Hyper-Glycemia with pseudohyponatremia Manic-depressive bipolar disorder Viral gastroenteritis Discharge diagnoses: Hyperglycemia with pseudohyponatremia left AMA; Depressed bipolar disorder Viral gastric enteritis Consultations: None Procedures: None Hospital course: Patient presented yesterday complaining of vague abdominal discomfort, low back pain bilaterally, states she's been having nausea and vomiting for the past 2 days, unable to take her psychiatric medications including Seroquel and lithium ; has also not been eating secondary to her nausea and vomiting. On arrival patient was combative and generally noncompliant. Started on insulin drip and IV fluids. Patient ultimately admitted to medical surgical floor and started on 7 units insulin drip. Patient became loud and combative, generally noncompliant , emotional lability; blood glucose elevated at 1000+; glucose started trending downwards with insulin drip but was generally noncompliant and abusive towards medical personal including nursing staff. Patient deferred recommendations for psych consultation. Overnight insulin drip was discontinued; following morning lithium carbonate 300 mg provided to patient, repeat Accu-Chek not performed secondary to patient being noncompliant, patient left AMA. Pt. kept requesting food despite earlier recommendations of NPO; however ultimately decided to allow some nourishment due to not being in DKA; however was requesting food multiple times overnight when cafeteria was closed; became increasingly annoyed with it taking too long to get her coffee. Discharge condition: Patient left AMA Disposition: Patient left AMA Discharge medications: Patient left AMA patient left AMA Discharge instructions: Patient left AMA Follow-up: Patient left AMA - Discharge Data Discharge Date: 05/27/19 Discharge Disposition: Against Medical Advice 07 Condition: Undetermined - Patient Instructions Driving: Do Not Drive Notify Provider of: Fever, Increased Pain, Swelling and Redness, Drainage, Nausea and/or Vomiting - Discharge Plan *PRESCRIPTION DRUG MONITORING PROGRAM REVIEWED*: No *COPY OF PRESCRIPTION DRUG MONITORING REPORT IN PATIENT FOSTER: No Home Medications: Home Meds Insulin Lispro [HumaLOG] 1 dose INJECT ASDIRECTED 04/22/19 [History] Albuterol [Ventolin HFA] 1 puff INH QID PRN 05/16/19 [History] Pantoprazole Sodium [Protonix] 40 mg PO BID 05/29/19 [History] Sucralfate [Carafate] 1 gm PO TIDMEALS 05/29/19 [History] Insulin Glarg,Human.Rec.Analog [Lantus Solostar] 15 units SUBCUT BEDTIME pen [Rx] Insulin Glarg,Human.Rec.Analog [Lantus Solostar] 25 units SUBCUT DAILY pen 10/17 [Rx] LORazepam [Ativan] 1 mg PO TID #0 05/30/19 [Rx] Mascot Carbonate [Eskalith] 600 mg PO BID 14 Days #28 cap 05/30/19 [Rx] Ziprasidone HCl [Geodon] 80 mg PO BEDTIME 14 Days #14 cap 05/30/19 [Rx] levoFLOXacin [Levaquin] 250 mg PO DAILY 3 Days #3 tab 05/30/19 [Rx] - Discharge Summary/Plan Comment DC Time >30 min.: No - Patient Data Vitals - Most Recent: Last Vital Signs Temp 97.2 F 05/27/19 03:37 Pulse 90 05/27/19 03:37 Resp 14 05/27/19 03:37 BP 99/61 05/27/19 03:37 Pulse Ox 96 05/27/19 03:37 Weight - Most Recent: 69.853 kg Lab Results - Last 24 hrs: Laboratory Results - last 24 hr 05/26/19 05/26/19 05/26/19 Range/Units 14:01 14:01 14:21 WBC (4.0-11.0) K/uL RBC (4.30-5.90) M/uL Hgb (12.0-16.0) g/dL Hct (36.0-46.0) % MCV (80.0-98.0) fL MCH (27.0-32.0) pg MCHC (31.0-37.0) g/dL RDW Std Deviation (28.0-62.0) fl RDW Coeff of Krystina (11.0-15.0) % Plt Count (150-400) K/uL MPV (7.40-12.00) fL Neut % (Auto) (48.0-80.0) % Lymph % (Auto) (16.0-40.0) % [place] % (Auto) (0.0-15.0) % Eos % (Auto) (0.0-7.0) % Baso % (Auto) (0.0-1.5) % Neut # (Auto) (1.4-5.7) K/uL Lymph # (Auto) (0.6-2.4) K/uL [place] # (Auto) (0.0-0.8) K/uL Eos # (Auto) (0.0-0.7) K/uL Baso # (Auto) (0.0-0.1) K/uL Nucleated RBC % /100WBC Nucleated RBCs # K/uL VBG pH (7.31-7.41) VBG pCO2 (35-45) mmHG VBG pO2 (30-40) mmHG VBG HCO3 (22-30) mEq/L VBG Total CO2 (41-51) mmol/L VBG Base Excess (-3.0-3.0) Sodium (136-145) mmol/L Potassium (3.5-5.1) mmol/L Chloride (98-107) mmol/L Carbon Dioxide (21.0-32.0) mmol/L BUN (7.0-18.0) mg/dL Creatinine (0.6-1.0) mg/dL Est Cr Clr Drug Dosing mL/min Estimated GFR (MDRD) ml/min Glucose (74-106) mg/dL POC Glucose (60-110) mg/dL Calcium (8.5-10.1) mg/dL Total Bilirubin (0.2-1.0) mg/dL AST (15-37) IU/L ALT (14-63) IU/L Alkaline Phosphatase (46-116) U/L Total Protein (6.4-8.2) g/dL Albumin (3.4-5.0) g/dL Globulin (2.6-4.0) g/dL Albumin/Globulin Ratio (0.9-1.6) Lipase (73-393) U/L Urine Color YELLOW Urine Appearance CLEAR Urine pH 6.0 (5.0-8.0) Ur Specific Spearman <= 1.005 (1.001-1.035) Urine Protein NEGATIVE (NEGATIVE) mg/dL Urine Glucose (UA) >=1000 (NEGATIVE) mg/dL Urine Ketones TRACE H (NEGATIVE) mg/dL Urine Occult Blood NEGATIVE (NEGATIVE) Urine Nitrite NEGATIVE (NEGATIVE) Urine Bilirubin NEGATIVE (NEGATIVE) Urine Urobilinogen 0.2 (<2.0) EU/dL Ur Leukocyte Esterase NEGATIVE (NEGATIVE) Urine HCG, Qual NEGATIVE (NEGATIVE) Urine Opiates Screen NEGATIVE (NEGATIVE) Ur Oxycodone Screen NEGATIVE (NEGATIVE) Urine Methadone Screen NEGATIVE (NEGATIVE) Ur Barbiturates Screen NEGATIVE (NEGATIVE) Ur Phencyclidine Scrn NEGATIVE (NEGATIVE) Ur Amphetamine Screen NEGATIVE (NEGATIVE) U Methamphetamines Scrn NEGATIVE (NEGATIVE) U Benzodiazepines Scrn NEGATIVE (NEGATIVE) U Cocaine Metab Screen NEGATIVE (NEGATIVE) U Marijuana (THC) Screen NEGATIVE (NEGATIVE) Ketones (NEG) 05/26/19 05/26/19 05/26/19 Range/Units 14:25 14:40 14:40 WBC 8.73 (4.0-11.0) K/uL RBC 4.19 L (4.30-5.90) M/uL Hgb 12.1 (12.0-16.0) g/dL Hct 38.6 (36.0-46.0) % MCV 92.1 (80.0-98.0) fL MCH 28.9 (27.0-32.0) pg MCHC 31.3 (31.0-37.0) g/dL RDW Std Deviation 53.8 (28.0-62.0) fl RDW Coeff of Krystina 16 H (11.0-15.0) % Plt Count 352 (150-400) K/uL MPV 11.90 (7.40-12.00) fL Neut % (Auto) 72.3 (48.0-80.0) % Lymph % (Auto) 18.3 (16.0-40.0) % [place] % (Auto) 6.5 (0.0-15.0) % Eos % (Auto) 2.2 (0.0-7.0) % Baso % (Auto) 0.7 (0.0-1.5) % Neut # (Auto) 6.3 H (1.4-5.7) K/uL Lymph # (Auto) 1.6 (0.6-2.4) K/uL [place] # (Auto) 0.6 (0.0-0.8) K/uL Eos # (Auto) 0.2 (0.0-0.7) K/uL Baso # (Auto) 0.1 (0.0-0.1) K/uL Nucleated RBC % 0.0 /100WBC Nucleated RBCs # 0 K/uL VBG pH (7.31-7.41) VBG pCO2 (35-45) mmHG VBG pO2 (30-40) mmHG VBG HCO3 (22-30) mEq/L VBG Total CO2 (41-51) mmol/L VBG Base Excess (-3.0-3.0) Sodium 115 L* (136-145) mmol/L Potassium 5.5 H (3.5-5.1) mmol/L Chloride 81 L (98-107) mmol/L Carbon Dioxide 21.4 (21.0-32.0) mmol/L BUN 38 H (7.0-18.0) mg/dL Creatinine 1.4 H (0.6-1.0) mg/dL Est Cr Clr Drug Dosing 51.91 mL/min Estimated GFR (MDRD) 43.6 ml/min Glucose 1208 H* (74-106) mg/dL POC Glucose > 500 H (60-110) mg/dL Calcium 9.1 (8.5-10.1) mg/dL Total Bilirubin 0.8 (0.2-1.0) mg/dL AST 76 H (15-37) IU/L ALT 114 H (14-63) IU/L Alkaline Phosphatase 195 H (46-116) U/L Total Protein 6.9 (6.4-8.2) g/dL Albumin 3.6 (3.4-5.0) g/dL Globulin 3.3 (2.6-4.0) g/dL Albumin/Globulin Ratio 1.1 (0.9-1.6) Lipase (73-393) U/L Urine Color Urine Appearance Urine pH (5.0-8.0) Ur Specific Spearman (1.001-1.035) Urine Protein (NEGATIVE) mg/dL Urine Glucose (UA) (NEGATIVE) mg/dL Urine Ketones (NEGATIVE) mg/dL Urine Occult Blood (NEGATIVE) Urine Nitrite (NEGATIVE) Urine Bilirubin (NEGATIVE) Urine Urobilinogen (<2.0) EU/dL Ur Leukocyte Esterase (NEGATIVE) Urine HCG, Qual (NEGATIVE) Urine Opiates Screen (NEGATIVE) Ur Oxycodone Screen (NEGATIVE) Urine Methadone Screen (NEGATIVE) Ur Barbiturates Screen (NEGATIVE) Ur Phencyclidine Scrn (NEGATIVE) Ur Amphetamine Screen (NEGATIVE) U Methamphetamines Scrn (NEGATIVE) U Benzodiazepines Scrn (NEGATIVE) U Cocaine Metab Screen (NEGATIVE) U Marijuana (THC) Screen (NEGATIVE) Ketones (NEG) 05/26/19 05/26/19 05/26/19 Range/Units 14:40 14:40 15:24 WBC (4.0-11.0) K/uL RBC (4.30-5.90) M/uL Hgb (12.0-16.0) g/dL Hct (36.0-46.0) % MCV (80.0-98.0) fL MCH (27.0-32.0) pg MCHC (31.0-37.0) g/dL RDW Std Deviation (28.0-62.0) fl RDW Coeff of Krystina (11.0-15.0) % Plt Count (150-400) K/uL MPV (7.40-12.00) fL Neut % (Auto) (48.0-80.0) % Lymph % (Auto) (16.0-40.0) % [place] % (Auto) (0.0-15.0) % Eos % (Auto) (0.0-7.0) % Baso % (Auto) (0.0-1.5) % Neut # (Auto) (1.4-5.7) K/uL Lymph # (Auto) (0.6-2.4) K/uL [place] # (Auto) (0.0-0.8) K/uL Eos # (Auto) (0.0-0.7) K/uL Baso # (Auto) (0.0-0.1) K/uL Nucleated RBC % /100WBC Nucleated RBCs # K/uL VBG pH 7.33 (7.31-7.41) VBG pCO2 42 (35-45) mmHG VBG pO2 36 (30-40) mmHG VBG HCO3 22 (22-30) mEq/L VBG Total CO2 21 L (41-51) mmol/L VBG Base Excess -3.7 L (-3.0-3.0) Sodium (136-145) mmol/L Potassium (3.5-5.1) mmol/L Chloride (98-107) mmol/L Carbon Dioxide (21.0-32.0) mmol/L BUN (7.0-18.0) mg/dL Creatinine (0.6-1.0) mg/dL Est Cr Clr Drug Dosing mL/min Estimated GFR (MDRD) ml/min Glucose (74-106) mg/dL POC Glucose (60-110) mg/dL Calcium (8.5-10.1) mg/dL Total Bilirubin (0.2-1.0) mg/dL AST (15-37) IU/L ALT (14-63) IU/L Alkaline Phosphatase (46-116) U/L Total Protein (6.4-8.2) g/dL Albumin (3.4-5.0) g/dL Globulin (2.6-4.0) g/dL Albumin/Globulin Ratio (0.9-1.6) Lipase 248 (73-393) U/L Urine Color Urine Appearance Urine pH (5.0-8.0) Ur Specific Spearman (1.001-1.035) Urine Protein (NEGATIVE) mg/dL Urine Glucose (UA) (NEGATIVE) mg/dL Urine Ketones (NEGATIVE) mg/dL Urine Occult Blood (NEGATIVE) Urine Nitrite (NEGATIVE) Urine Bilirubin (NEGATIVE) Urine Urobilinogen (<2.0) EU/dL Ur Leukocyte Esterase (NEGATIVE) Urine HCG, Qual (NEGATIVE) Urine Opiates Screen (NEGATIVE) Ur Oxycodone Screen (NEGATIVE) Urine Methadone Screen (NEGATIVE) Ur Barbiturates Screen (NEGATIVE) Ur Phencyclidine Scrn (NEGATIVE) Ur Amphetamine Screen (NEGATIVE) U Methamphetamines Scrn (NEGATIVE) U Benzodiazepines Scrn (NEGATIVE) U Cocaine Metab Screen (NEGATIVE) U Marijuana (THC) Screen (NEGATIVE) Ketones SMALL H (NEG) 05/26/19 05/26/19 05/26/19 Range/Units 18:38 20:08 21:20 WBC (4.0-11.0) K/uL RBC (4.30-5.90) M/uL Hgb (12.0-16.0) g/dL Hct (36.0-46.0) % MCV (80.0-98.0) fL MCH (27.0-32.0) pg MCHC (31.0-37.0) g/dL RDW Std Deviation (28.0-62.0) fl RDW Coeff of Krystina (11.0-15.0) % Plt Count (150-400) K/uL MPV (7.40-12.00) fL Neut % (Auto) (48.0-80.0) % Lymph % (Auto) (16.0-40.0) % [place] % (Auto) (0.0-15.0) % Eos % (Auto) (0.0-7.0) % Baso % (Auto) (0.0-1.5) % Neut # (Auto) (1.4-5.7) K/uL Lymph # (Auto) (0.6-2.4) K/uL [place] # (Auto) (0.0-0.8) K/uL Eos # (Auto) (0.0-0.7) K/uL Baso # (Auto) (0.0-0.1) K/uL Nucleated RBC % /100WBC Nucleated RBCs # K/uL VBG pH (7.31-7.41) VBG pCO2 (35-45) mmHG VBG pO2 (30-40) mmHG VBG HCO3 (22-30) mEq/L VBG Total CO2 (41-51) mmol/L VBG Base Excess (-3.0-3.0) Sodium (136-145) mmol/L Potassium (3.5-5.1) mmol/L Chloride (98-107) mmol/L Carbon Dioxide (21.0-32.0) mmol/L BUN (7.0-18.0) mg/dL Creatinine (0.6-1.0) mg/dL Est Cr Clr Drug Dosing mL/min Estimated GFR (MDRD) ml/min Glucose (74-106) mg/dL POC Glucose > 500 H 363 H 405 H (60-110) mg/dL Calcium (8.5-10.1) mg/dL Total Bilirubin (0.2-1.0) mg/dL AST (15-37) IU/L ALT (14-63) IU/L Alkaline Phosphatase (46-116) U/L Total Protein (6.4-8.2) g/dL Albumin (3.4-5.0) g/dL Globulin (2.6-4.0) g/dL Albumin/Globulin Ratio (0.9-1.6) Lipase (73-393) U/L Urine Color Urine Appearance Urine pH (5.0-8.0) Ur Specific Spearman (1.001-1.035) Urine Protein (NEGATIVE) mg/dL Urine Glucose (UA) (NEGATIVE) mg/dL Urine Ketones (NEGATIVE) mg/dL Urine Occult Blood (NEGATIVE) Urine Nitrite (NEGATIVE) Urine Bilirubin (NEGATIVE) Urine Urobilinogen (<2.0) EU/dL Ur Leukocyte Esterase (NEGATIVE) Urine HCG, Qual (NEGATIVE) Urine Opiates Screen (NEGATIVE) Ur Oxycodone Screen (NEGATIVE) Urine Methadone Screen (NEGATIVE) Ur Barbiturates Screen (NEGATIVE) Ur Phencyclidine Scrn (NEGATIVE) Ur Amphetamine Screen (NEGATIVE) U Methamphetamines Scrn (NEGATIVE) U Benzodiazepines Scrn (NEGATIVE) U Cocaine Metab Screen (NEGATIVE) U Marijuana (THC) Screen (NEGATIVE) Ketones (NEG) 05/26/19 05/27/19 05/27/19 Range/Units 23:56 03:11 06:00 WBC 8.40 (4.0-11.0) K/uL RBC 3.85 L (4.30-5.90) M/uL Hgb 11.1 L (12.0-16.0) g/dL Hct 32.5 L (36.0-46.0) % MCV 84.4 (80.0-98.0) fL MCH 28.8 (27.0-32.0) pg MCHC 34.2 (31.0-37.0) g/dL RDW Std Deviation 44.8 (28.0-62.0) fl RDW Coeff of Krystina 15 (11.0-15.0) % Plt Count 346 (150-400) K/uL MPV 11.20 (7.40-12.00) fL Neut % (Auto) 51.2 (48.0-80.0) % Lymph % (Auto) 32.4 (16.0-40.0) % [place] % (Auto) 11.1 (0.0-15.0) % Eos % (Auto) 4.6 (0.0-7.0) % Baso % (Auto) 0.7 (0.0-1.5) % Neut # (Auto) 4.3 (1.4-5.7) K/uL Lymph # (Auto) 2.7 H (0.6-2.4) K/uL [place] # (Auto) 0.9 H (0.0-0.8) K/uL Eos # (Auto) 0.4 (0.0-0.7) K/uL Baso # (Auto) 0.1 (0.0-0.1) K/uL Nucleated RBC % 0.0 /100WBC Nucleated RBCs # 0 K/uL VBG pH (7.31-7.41) VBG pCO2 (35-45) mmHG VBG pO2 (30-40) mmHG VBG HCO3 (22-30) mEq/L VBG Total CO2 (41-51) mmol/L VBG Base Excess (-3.0-3.0) Sodium (136-145) mmol/L Potassium (3.5-5.1) mmol/L Chloride (98-107) mmol/L Carbon Dioxide (21.0-32.0) mmol/L BUN (7.0-18.0) mg/dL Creatinine (0.6-1.0) mg/dL Est Cr Clr Drug Dosing mL/min Estimated GFR (MDRD) ml/min Glucose (74-106) mg/dL POC Glucose 481 H 375 H (60-110) mg/dL Calcium (8.5-10.1) mg/dL Total Bilirubin (0.2-1.0) mg/dL AST (15-37) IU/L ALT (14-63) IU/L Alkaline Phosphatase (46-116) U/L Total Protein (6.4-8.2) g/dL Albumin (3.4-5.0) g/dL Globulin (2.6-4.0) g/dL Albumin/Globulin Ratio (0.9-1.6) Lipase (73-393) U/L Urine Color Urine Appearance Urine pH (5.0-8.0) Ur Specific Spearman (1.001-1.035) Urine Protein (NEGATIVE) mg/dL Urine Glucose (UA) (NEGATIVE) mg/dL Urine Ketones (NEGATIVE) mg/dL Urine Occult Blood (NEGATIVE) Urine Nitrite (NEGATIVE) Urine Bilirubin (NEGATIVE) Urine Urobilinogen (<2.0) EU/dL Ur Leukocyte Esterase (NEGATIVE) Urine HCG, Qual (NEGATIVE) Urine Opiates Screen (NEGATIVE) Ur Oxycodone Screen (NEGATIVE) Urine Methadone Screen (NEGATIVE) Ur Barbiturates Screen (NEGATIVE) Ur Phencyclidine Scrn (NEGATIVE) Ur Amphetamine Screen (NEGATIVE) U Methamphetamines Scrn (NEGATIVE) U Benzodiazepines Scrn (NEGATIVE) U Cocaine Metab Screen (NEGATIVE) U Marijuana (THC) Screen (NEGATIVE) Ketones (NEG) 05/27/19 05/27/19 05/27/19 Range/Units 06:00 06:01 08:03 WBC (4.0-11.0) K/uL RBC (4.30-5.90) M/uL Hgb (12.0-16.0) g/dL Hct (36.0-46.0) % MCV (80.0-98.0) fL MCH (27.0-32.0) pg MCHC (31.0-37.0) g/dL RDW Std Deviation (28.0-62.0) fl RDW Coeff of Krystina (11.0-15.0) % Plt Count (150-400) K/uL MPV (7.40-12.00) fL Neut % (Auto) (48.0-80.0) % Lymph % (Auto) (16.0-40.0) % [place] % (Auto) (0.0-15.0) % Eos % (Auto) (0.0-7.0) % Baso % (Auto) (0.0-1.5) % Neut # (Auto) (1.4-5.7) K/uL Lymph # (Auto) (0.6-2.4) K/uL [place] # (Auto) (0.0-0.8) K/uL Eos # (Auto) (0.0-0.7) K/uL Baso # (Auto) (0.0-0.1) K/uL Nucleated RBC % /100WBC Nucleated RBCs # K/uL VBG pH (7.31-7.41) VBG pCO2 (35-45) mmHG VBG pO2 (30-40) mmHG VBG HCO3 (22-30) mEq/L VBG Total CO2 (41-51) mmol/L VBG Base Excess (-3.0-3.0) Sodium 133 L (136-145) mmol/L Potassium 3.7 (3.5-5.1) mmol/L Chloride 98 (98-107) mmol/L Carbon Dioxide 25.9 (21.0-32.0) mmol/L BUN 31 H (7.0-18.0) mg/dL Creatinine 0.9 (0.6-1.0) mg/dL Est Cr Clr Drug Dosing 80.75 mL/min Estimated GFR (MDRD) > 60.0 ml/min Glucose 325 H (74-106) mg/dL POC Glucose 315 H 374 H (60-110) mg/dL Calcium 9.1 (8.5-10.1) mg/dL Total Bilirubin 0.6 (0.2-1.0) mg/dL AST 30 (15-37) IU/L ALT 84 H (14-63) IU/L Alkaline Phosphatase 163 H (46-116) U/L Total Protein 5.8 L (6.4-8.2) g/dL Albumin 3.1 L (3.4-5.0) g/dL Globulin 2.7 (2.6-4.0) g/dL Albumin/Globulin Ratio 1.2 (0.9-1.6) Lipase (73-393) U/L Urine Color Urine Appearance Urine pH (5.0-8.0) Ur Specific Spearman (1.001-1.035) Urine Protein (NEGATIVE) mg/dL Urine Glucose (UA) (NEGATIVE) mg/dL Urine Ketones (NEGATIVE) mg/dL Urine Occult Blood (NEGATIVE) Urine Nitrite (NEGATIVE) Urine Bilirubin (NEGATIVE) Urine Urobilinogen (<2.0) EU/dL Ur Leukocyte Esterase (NEGATIVE) Urine HCG, Qual (NEGATIVE) Urine Opiates Screen (NEGATIVE) Ur Oxycodone Screen (NEGATIVE) Urine Methadone Screen (NEGATIVE) Ur Barbiturates Screen (NEGATIVE) Ur Phencyclidine Scrn (NEGATIVE) Ur Amphetamine Screen (NEGATIVE) U Methamphetamines Scrn (NEGATIVE) U Benzodiazepines Scrn (NEGATIVE) U Cocaine Metab Screen (NEGATIVE) U Marijuana (THC) Screen (NEGATIVE) Ketones (NEG) Med Orders - Current: Current Medications Albuterol (Ventolin Hfa) 0 gm INH QID PRN PRN Reason: SOB/wheezing Insulin Human Regular 100 unit (/ Sodium Chloride) 100 mls @ 7 mls/hr IV TITRATE [facility]; Protocol Last Titration: 05/26/19 20:12 Dose: 6 unit/hr, 6 mls/hr Insulin Aspart (Novolog) 0 unit SUBCUT TIDAC [facility]; Protocol Last Admin: 05/27/19 08:23 Dose: Not Given Mascot Carbonate (Eskalith) 300 mg PO BID [facility] Last Admin: 05/27/19 08:22 Dose: 300 mg Lorazepam (Ativan) 1 mg PO Q8H PRN PRN Reason: Anxiety Discontinued Medications Diphenhydramine HCl (Benadryl) 25 mg IVPUSH ONETIME ONE Stop: 05/26/19 16:05 Last Admin: 05/26/19 16:30 Dose: 25 mg Heparin Sodium (Porcine) (Heparin Lock Flush 100 Units/Ml) 500 units FLUSH ONETIME ONE Stop: 05/27/19 08:10 Last Admin: 05/27/19 08:20 Dose: 500 units Sodium Chloride (Normal Saline) 1,000 mls @ 999 mls/hr IV BOLUS ONE Stop: 05/26/19 15:20 Last Admin: 05/26/19 15:22 Dose: 999 mls/hr Sodium Chloride (Normal Saline) 1,000 mls @ 999 mls/hr IV .Bolus ONE Stop: 05/26/19 17:48 Last Infusion: 05/26/19 16:54 Dose: 493 mls/hr Insulin Aspart (Novolog) 10 unit SUBCUT STAT ONE Stop: 05/27/19 01:01 Last Admin: 05/27/19 01:08 Dose: 10 units Lorazepam (Ativan) 1 mg IVPUSH ONETIME ONE Stop: 05/26/19 18:47 Last Admin: 05/26/19 19:02 Dose: 1 mg Ondansetron HCl (Zofran) 4 mg IVPUSH ONETIME ONE Stop: 05/26/19 14:21 Last Admin: 05/26/19 15:22 Dose: 4 mg <David Coe - Last Filed: 05/31/19 11:16> - Patient Data Vitals - Most Recent: Last Vital Signs Temp 36.2 C 05/27/19 03:37 Pulse 90 05/27/19 03:37 Resp 14 05/27/19 03:37 BP 99/61 05/27/19 03:37 Pulse Ox 96 05/27/19 03:37 Med Orders - Current: Current Medications Discontinued Medications Albuterol (Ventolin Hfa) 0 gm INH QID PRN PRN Reason: SOB/wheezing Diphenhydramine HCl (Benadryl) 25 mg IVPUSH ONETIME ONE Stop: 05/26/19 16:05 Last Admin: 05/26/19 16:30 Dose: 25 mg Heparin Sodium (Porcine) (Heparin Lock Flush 100 Units/Ml) 500 units FLUSH ONETIME ONE Stop: 05/27/19 08:10 Last Admin: 05/27/19 08:20 Dose: 500 units Sodium Chloride (Normal Saline) 1,000 mls @ 999 mls/hr IV BOLUS ONE Stop: 05/26/19 15:20 Last Admin: 05/26/19 15:22 Dose: 999 mls/hr Insulin Human Regular 100 unit (/ Sodium Chloride) 100 mls @ 7 mls/hr IV TITRATE [facility]; Protocol Last Titration: 05/26/19 20:12 Dose: 6 unit/hr, 6 mls/hr Sodium Chloride (Normal Saline) 1,000 mls @ 999 mls/hr IV .Bolus ONE Stop: 05/26/19 17:48 Last Infusion: 05/26/19 16:54 Dose: 493 mls/hr Insulin Aspart (Novolog) 0 unit SUBCUT TIDAC [facility]; Protocol Last Admin: 05/27/19 08:23 Dose: Not Given Insulin Aspart (Novolog) 10 unit SUBCUT STAT ONE Stop: 05/27/19 01:01 Last Admin: 05/27/19 01:08 Dose: 10 units Mascot Carbonate (Eskalith) 300 mg PO BID [facility] Last Admin: 05/27/19 08:22 Dose: 300 mg Lorazepam (Ativan) 1 mg IVPUSH ONETIME ONE Stop: 05/26/19 18:47 Last Admin: 05/26/19 19:02 Dose: 1 mg Lorazepam (Ativan) 1 mg PO Q8H PRN PRN Reason: Anxiety Ondansetron HCl (Zofran) 4 mg IVPUSH ONETIME ONE Stop: 05/26/19 14:21 Last Admin: 05/26/19 15:22 Dose: 4 mg - Free Text/Narrative Note: I have evaluated the patient. I have discussed findings and treatment plan with resident. I agree with the assessment and plan outlined in the following note.
== END 2019-05-27 08:30 | disposition left against medical advice (07) ==
LOC: MW.ED 14:19 → MW.MS 16:40
PROVIDERS: ADMIT Internal Medicine; ATTEND Internal Medicine
DX: E10.65 Type 1 diabetes mellitus with hyperglycemia (principal); A08.4 Viral intestinal infection, unspecified; M54.5 Low back pain; E10.51 Type 1 diabetes mellitus with diabetic peripheral angiopathy without gangrene; J45.909 Unspecified asthma, uncomplicated; F31.9 Bipolar disorder, unspecified; F17.200 Nicotine dependence, unspecified, uncomplicated; Z88.6 Allergy status to analgesic agent; Z88.1 Allergy status to other antibiotic agents; Z88.5 Allergy status to narcotic agent; Z88.8 Allergy status to other drugs, medicaments and biological substances; Z91.19 Patient's noncompliance with other medical treatment and regimen; Z53.21 Procedure and treatment not carried out due to patient leaving prior to being seen by health care provider; Z79.4 Long term (current) use of insulin; Z79.899 Other long term (current) drug therapy
CPT/HCPCS: 36415; 71045; 80053; 80305; 81003; 81025; 82009; 82803; 82962; 83690; 85025; 93005; 96361; 96365; 96375; 99285; A9270; J1200; J1642; J1815; J2060; J2405; J7040; 99284; J3535-GY

== ENCOUNTER 2019-05-28 06:56 | Inpatient (IN) | payer MEDICAID ==
[2019-05-28] MEDS ORDERED: Sodium Chloride 0.9% 1,000 ML IV ONE (07:04)
[2019-05-28] MEDS ORDERED: Insulin Regular, Human 100 Units/ML 10 ML Vial IVPUSH ONE ×2 (07:04→08:11)
--- NOTE | 2019-05-28 07:07 | EDM.PDOC ---
ED HPI GENERAL MEDICAL PROBLEM - General Chief Complaint: Diabetic Complaint Stated Complaint: DIABETIC, BLOOD SUGAR TOO HIGH Time Seen by Provider: 05/28/19 07:06 Source of Information: Reports: Patient, EMS - History of Present Illness INITIAL COMMENTS - FREE TEXT/NARRATIVE: HISTORY AND PHYSICAL: History of present illness: Patient presents with elevated glucose she was seen and admitted yesterday however left AGAINST MEDICAL ADVICE Review of systems: As per history of present illness and below otherwise all systems reviewed and negative. Past medical history: As per history of present illness and as reviewed below otherwise noncontributory. Surgical history: As per history of present illness and as reviewed below otherwise noncontributory. Social history: No reported history of drug or alcohol abuse. Family history: As per history of present illness and as reviewed below otherwise noncontributory. Physical exam: HEENT: Atraumatic, normocephalic, pupils reactive, negative for conjunctival pallor or scleral icterus, mucous membranes moist, throat clear, neck supple, nontender, trachea midline. Lungs: Clear to auscultation, breath sounds equal bilaterally, chest nontender. Heart: S1S2, regular, negative for clicks, rubs, or JVD. Abdomen: Soft, nondistended, nontender. Negative for masses or hepatosplenomegaly. Negative for costovertebral tenderness. Pelvis: Stable nontender. Genitourinary: Deferred. Rectal: Deferred. Extremities: Atraumatic, negative for cords or calf pain. Neurovascular unremarkable. Neuro: Awake, alert, oriented. Cranial nerves II through XII unremarkable. Cerebellum unremarkable. Motor and sensory unremarkable throughout. Exam nonfocal. Diagnostics: [CBC CMP UA Chest x-ray on file EKG ] Therapeutics: [ normal saline Insulin ] Impression: DKA [ hyperglycemia, 974 on EMS arrival ] Definitive disposition and diagnosis as appropriate pending reevaluation and review of above. Abdominal Pain Score (Numeric/FACES): 4 - Related Data Allergies Allergy/AdvReac Type Severity Reaction Status Date / Time acetaminophen [From Tylenol] Allergy Other Verified 05/28/19 06:57 aspirin Allergy Other Verified 05/28/19 06:57 butorphanol [From Stadol] Allergy Hives Verified 05/28/19 06:57 ceftriaxone [From Rocephin] Allergy Hives Verified 05/28/19 06:57 cephalexin [From Keflex] Allergy Hives Verified 05/28/19 06:57 chamomile flower Allergy Other Verified 05/28/19 06:57 hydromorphone [From Dilaudid] Allergy Hives Verified 05/28/19 06:57 metoclopramide [From Reglan] Allergy Seizure Verified 05/28/19 06:57 orange Allergy Other Verified 05/28/19 06:57 polyethylene glycol 3350 Allergy Hives Verified 05/28/19 06:57 [From Miralax] buprenorphine [From Buprenex] AdvReac Hallucinati Verified 05/28/19 06:57 ons fentanyl AdvReac Hallucinati Verified 05/28/19 06:57 ons ketorolac [From Toradol] AdvReac Hallucinati Verified 05/28/19 06:57 ons morphine AdvReac Itching Verified 05/28/19 06:57 tramadol AdvReac Hallucinati Verified 05/28/19 06:57 ons Home Meds: Home Meds Insulin Degludec [Tresiba] 15 units INJECT ACDINNER 04/22/19 [History] Insulin Lispro [HumaLOG] 1 dose INJECT ASDIRECTED 04/22/19 [History] LORazepam [Ativan] 1 mg PO QID PRN 04/22/19 [History] Albuterol [Ventolin HFA] 1 puff INH QID PRN 05/16/19 [History] Sulfamethoxazole/Trimethoprim [Septra DS] 1 tab PO BID #8 tablet 05/18/19 [Rx] [place] Carbonate 300 mg PO BID 05/27/19 [History] Past Medical History HEENT History: Reports: Impaired Vision Other HEENT History: 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 Cardiovascular History: Reports: Other (See Below) Other Cardiovascular History: PAD Respiratory History: Reports: Asthma, Bronchitis, Recurrent, Pneumonia, Recurrent Gastrointestinal History: Reports: Other (See Below) Other Gastrointestinal History: Gastroparesis Genitourinary History: Reports: Renal Calculus, UTI, Recurrent CRATE OPENER History: Reports: , Other (See Below) Other CRATE OPENER History: coma for 8 days due to UTI/spesis Musculoskeletal History: Reports: Osteoarthritis, Other (See Below) Other Musculoskeletal History: muscular atrophy Neurological History: Reports: Neuropathy, Diabetic, Seizure Psychiatric History: Reports: Anxiety, Bipolar, Depression, Other (See Below) Other Psychiatric History: Schizoaffect disease, manic depressive Endocrine/Metabolic History: Reports: Diabetes, Type I Hematologic History: Reports: B12 Deficiency, Other (See Below) Other Hematologic History: hyponatremia Immunologic History: Reports: None Oncologic (Cancer) History: Reports: None Dermatologic History: Reports: Psoriasis - Infectious Disease History Infectious Disease History: Reports: C-Difficile, Extended Spectrum Beta- Lactamase (ESBL) Other Infectious Disease History: C-diff over 6 years ago; lyme disease - Past Surgical History HEENT Surgical History: Reports: None Cardiovascular Surgical History: Reports: Other (See Below) Other Cardiovascular Surgeries/Procedures: PDA corrected at age 4 Respiratory Surgical History: Reports: None GI Surgical History: Reports: Cholecystectomy, Esophageal Dilatation Female Surgical History: Reports: D&C Endocrine Surgical History: Reports: None Neurological Surgical History: Reports: None Musculoskeletal Surgical History: Reports: None Oncologic Surgical History: Reports: None Dermatological Surgical History: Reports: None Social & Family History - Family History Family Medical History: Noncontributory - Tobacco Use Smoking Status *Q: Current Every Day Smoker Years of Tobacco use: 15 Packs/Tins Daily: 0.3 - Caffeine Use Caffeine Use: Reports: None Caffeine Use Comment: 2 pots of coffee today; 3 pops a day - Recreational Drug Use Recreational Drug Use: No - Living Situation & Occupation Living situation: Reports: with Significant Other Occupation: Unemployed ED ROS GENERAL - Review of Systems Review Of Systems: See Below ED EXAM GENERAL NO PERIP PULSE - Physical Exam Exam: See Below Course - Vital Signs Last Recorded V/S: Last Vital Signs Temp 97.6 F 05/28/19 06:58 Pulse 98 05/28/19 06:58 Resp 19 05/28/19 06:58 BP 124/71 05/28/19 06:58 Pulse Ox 98 05/28/19 06:58 - Orders/Labs/Meds Orders: Active Orders 24 hr Category Date Time Status EKG Documentation Completion [RC] STAT Care 05/28/19 07:05 Active Insulin Regular, Human [NovoLIN R] 100 unit Med 05/28/19 08:00 Active Sodium Chloride 0.9% [Normal Saline] 99 ml IV TITRATE Medication Orders Insulin Human Regular 100 unit (/ Sodium Chloride) 100 mls @ 7 mls/hr IV TITRATE DIEGO; Protocol Last Admin: 05/28/19 08:17 Dose: 7 unit/hr, 7 mls/hr Labs: Laboratory Tests 05/28/19 05/28/19 05/28/19 Range/Units 07:18 07:18 07:38 WBC 11.56 H (4.0-11.0) K/uL RBC 4.01 L (4.30-5.90) M/uL Hgb 11.6 L (12.0-16.0) g/dL Hct 36.7 (36.0-46.0) % MCV 91.5 (80.0-98.0) fL MCH 28.9 (27.0-32.0) pg MCHC 31.6 (31.0-37.0) g/dL RDW Std Deviation 53.7 (28.0-62.0) fl RDW Coeff of Krystina 16 H (11.0-15.0) % Plt Count 360 (150-400) K/uL MPV 11.70 (7.40-12.00) fL Neut % (Auto) 65.3 (48.0-80.0) % Lymph % (Auto) 23.6 (16.0-40.0) % [place] % (Auto) 7.9 (0.0-15.0) % Eos % (Auto) 2.5 (0.0-7.0) % Baso % (Auto) 0.7 (0.0-1.5) % Neut # (Auto) 7.6 H (1.4-5.7) K/uL Lymph # (Auto) 2.7 H (0.6-2.4) K/uL [place] # (Auto) 0.9 H (0.0-0.8) K/uL Eos # (Auto) 0.3 (0.0-0.7) K/uL Baso # (Auto) 0.1 (0.0-0.1) K/uL Nucleated RBC % 0.0 /100WBC Nucleated RBCs # 0 K/uL ABG pH 7.237 L (7.35-7.45) ABG pCO2 20 L (35-45) mmHG ABG pO2 115 H (75-100) mmHG ABG HCO3 9 L (22-26) mEq/L ABG Total CO2 8.1 ABG Base Excess -16.9 L (-2.0-2.0) Sodium 123 L (136-145) mmol/L Potassium 5.0 (3.5-5.1) mmol/L Chloride 86 L (98-107) mmol/L Carbon Dioxide 12.8 L (21.0-32.0) mmol/L BUN 38 H (7.0-18.0) mg/dL Creatinine 1.3 H (0.6-1.0) mg/dL Est Cr Clr Drug Dosing 55.90 mL/min Estimated GFR (MDRD) 47.5 ml/min Glucose 974 H* (74-106) mg/dL POC Glucose (60-110) mg/dL Calcium 9.1 (8.5-10.1) mg/dL Total Bilirubin 0.6 (0.2-1.0) mg/dL AST 80 H (15-37) IU/L ALT 101 H (14-63) IU/L Alkaline Phosphatase 189 H (46-116) U/L Total Protein 6.7 (6.4-8.2) g/dL Albumin 3.7 (3.4-5.0) g/dL Globulin 3.0 (2.6-4.0) g/dL Albumin/Globulin Ratio 1.2 (0.9-1.6) Urine Color Urine Appearance Urine pH (5.0-8.0) Ur Specific [place] (1.001-1.035) Urine Protein (NEGATIVE) mg/dL Urine Glucose (UA) (NEGATIVE) mg/dL Urine Ketones (NEGATIVE) mg/dL Urine Occult Blood (NEGATIVE) Urine Nitrite (NEGATIVE) Urine Bilirubin (NEGATIVE) Urine Urobilinogen (<2.0) EU/dL Ur Leukocyte Esterase (NEGATIVE) 05/28/19 05/28/19 Range/Units 07:45 08:10 WBC (4.0-11.0) K/uL RBC (4.30-5.90) M/uL Hgb (12.0-16.0) g/dL Hct (36.0-46.0) % MCV (80.0-98.0) fL MCH (27.0-32.0) pg MCHC (31.0-37.0) g/dL RDW Std Deviation (28.0-62.0) fl RDW Coeff of Krystina (11.0-15.0) % Plt Count (150-400) K/uL MPV (7.40-12.00) fL Neut % (Auto) (48.0-80.0) % Lymph % (Auto) (16.0-40.0) % [place] % (Auto) (0.0-15.0) % Eos % (Auto) (0.0-7.0) % Baso % (Auto) (0.0-1.5) % Neut # (Auto) (1.4-5.7) K/uL Lymph # (Auto) (0.6-2.4) K/uL [place] # (Auto) (0.0-0.8) K/uL Eos # (Auto) (0.0-0.7) K/uL Baso # (Auto) (0.0-0.1) K/uL Nucleated RBC % /100WBC Nucleated RBCs # K/uL ABG pH (7.35-7.45) ABG pCO2 (35-45) mmHG ABG pO2 (75-100) mmHG ABG HCO3 (22-26) mEq/L ABG Total CO2 ABG Base Excess (-2.0-2.0) Sodium (136-145) mmol/L Potassium (3.5-5.1) mmol/L Chloride (98-107) mmol/L Carbon Dioxide (21.0-32.0) mmol/L BUN (7.0-18.0) mg/dL Creatinine (0.6-1.0) mg/dL Est Cr Clr Drug Dosing mL/min Estimated GFR (MDRD) ml/min Glucose (74-106) mg/dL POC Glucose > 500 H (60-110) mg/dL Calcium (8.5-10.1) mg/dL Total Bilirubin (0.2-1.0) mg/dL AST (15-37) IU/L ALT (14-63) IU/L Alkaline Phosphatase (46-116) U/L Total Protein (6.4-8.2) g/dL Albumin (3.4-5.0) g/dL Globulin (2.6-4.0) g/dL Albumin/Globulin Ratio (0.9-1.6) Urine Color YELLOW Urine Appearance CLEAR Urine pH 6.0 (5.0-8.0) Ur Specific [place] <= 1.005 (1.001-1.035) Urine Protein NEGATIVE (NEGATIVE) mg/dL Urine Glucose (UA) >=1000 (NEGATIVE) mg/dL Urine Ketones 40 H (NEGATIVE) mg/dL Urine Occult Blood NEGATIVE (NEGATIVE) Urine Nitrite NEGATIVE (NEGATIVE) Urine Bilirubin NEGATIVE (NEGATIVE) Urine Urobilinogen 0.2 (<2.0) EU/dL Ur Leukocyte Esterase NEGATIVE (NEGATIVE) Meds: Medications Generic Name Dose Route Start Last Admin Trade Name Bernice PRN Reason Stop Dose Admin Insulin Human Regular 100 unit 100 mls @ 7 mls/hr 05/28/19 08:00 05/28/19 08: 17 / Sodium Chloride IV 7 unit/hr TITRATE DIEGO 7 mls/hr Administration Protocol 7 UNIT/HR Discontinued Medications Generic Name Dose Route Start Last Admin Trade Name Doroteoq PRN Reason Stop Dose Admin Sodium Chloride 1,000 mls @ 999 mls/hr 05/28/19 07:04 05/28/19 07:30 Normal Saline IV 05/28/19 08:04 999 mls/hr STAT ONE Administration Insulin Human Regular 10 unit 05/28/19 07:04 05/28/19 07:37 Novolin R IVPUSH 05/28/19 07:05 10 units ONETIME ONE Administration Protocol Insulin Human Regular 10 unit 05/28/19 08:11 05/28/19 08:15 Novolin R IVPUSH 05/28/19 08:12 10 units ONETIME ONE Administration Protocol Ondansetron HCl 8 mg 05/28/19 07:24 05/28/19 07:30 Zofran IVPUSH 05/28/19 07:25 8 mg ONETIME ONE Administration Departure - Departure Time of Disposition: 08:40 Disposition: Admitted As Inpatient 67 Condition: Poor Clinical Impression: DKA (diabetic ketoacidoses) Clinical Impression: (Ruled Out): Hypoglycemia - Discharge Information Referrals: PCP,None [Primary Care Provider] - Forms: ED Department Discharge - My Orders Last 24 Hours: My Active Orders 05/28/19 07:05 EKG Documentation Completion [RC] STAT 05/28/19 08:00 Insulin Regular, Human [NovoLIN R] 100 unit Sodium Chloride 0.9% [Normal Saline] 99 ml IV TITRATE - Assessment/Plan Last 24 Hours: My Active Orders 05/28/19 07:05 EKG Documentation Completion [RC] STAT 05/28/19 08:00 Insulin Regular, Human [NovoLIN R] 100 unit Sodium Chloride 0.9% [Normal Saline] 99 ml IV TITRATE
[2019-05-28] MEDS ORDERED: Ondansetron 4 MG/2 ML SDV IVPUSH ONE (07:24)
[2019-05-28 07:45] LABS: CARBON DIOXIDE,CO2 12.8 mmol/L (21.0-32.0)
[2019-05-28] MEDS ORDERED: LORazepam 1 MG Tab PO PRN (09:42)
[2019-05-28] MEDS ORDERED: Albuterol 8 GM Inhaler INH PRN (09:42)
[2019-05-28] MEDS ORDERED: NS + KCl 20mEq/L 1,000 ML IV SCH (09:45)
--- NOTE | 2019-05-28 09:47 | PCM.HP.2 ---
H&P History of Present Illness - General Date of Service: 05/28/19 Admit Problem/Dx: Admission Diagnosis/Problem Admission Diagnosis/Problem Hyperglycemia/ Source of Information: Patient, Old Records History Limitations: Reports: Uncooperative - History of Present Illness Initial Comments - Free Text/Narative: patient is a 33-year-old female with past medical history of noncompliance with her type 1 diabetes, repeat admissions for hyperglycemia/DKA, manic-depressive bipolar disorder, presenting today after 12 hours of continuous nausea and vomiting and hyperglycemia. Patient states she has been compliant with her medication from previous hospital admission; of note patient did leave AMA stating unhappiness with care and food regimen; presented early this morning with vomiting 12 in the past 14 hours.. States last meal was last night with some eggs and last blood glucose last night was 241. ER course: and found to be in high anion gap ketoacidosis/DKA, nausea and vomiting, nonbilious: initiated on insulin drip and IV fluids and made nothing by mouth. Bedside evaluation: patient seen at bedside; overtly agitated and distress. Complaining of pain in abdomen with accompanying nausea. Requesting Benadryl and morphine; states pain is most likely not just her DKA; something else. Patient otherwise became increasingly agitated and noncompliant with examination. Abdominal Pain Score (Numeric/FACES): 4 - Related Data Allergies/Adverse Reactions: Allergies Allergy/AdvReac Type Severity Reaction Status Date / Time acetaminophen [From Tylenol] Allergy Other Verified 05/28/19 06:57 aspirin Allergy Other Verified 05/28/19 06:57 butorphanol [From Stadol] Allergy Hives Verified 05/28/19 06:57 ceftriaxone [From Rocephin] Allergy Hives Verified 05/28/19 06:57 cephalexin [From Keflex] Allergy Hives Verified 05/28/19 06:57 chamomile flower Allergy Other Verified 05/28/19 06:57 hydromorphone [From Dilaudid] Allergy Hives Verified 05/28/19 06:57 metoclopramide [From Reglan] Allergy Seizure Verified 05/28/19 06:57 orange Allergy Other Verified 05/28/19 06:57 polyethylene glycol 3350 Allergy Hives Verified 05/28/19 06:57 [From Miralax] buprenorphine [From Buprenex] AdvReac Hallucinati Verified 05/28/19 06:57 ons fentanyl AdvReac Hallucinati Verified 05/28/19 06:57 ons ketorolac [From Toradol] AdvReac Hallucinati Verified 05/28/19 06:57 ons morphine AdvReac Itching Verified 05/28/19 06:57 tramadol AdvReac Hallucinati Verified 05/28/19 06:57 ons Home Medications: Home Meds Insulin Degludec [Tresiba] 15 units INJECT ACDINNER 04/22/19 [History] Insulin Lispro [HumaLOG] 1 dose INJECT ASDIRECTED 04/22/19 [History] LORazepam [Ativan] 1 mg PO QID PRN 04/22/19 [History] Albuterol [Ventolin HFA] 1 puff INH QID PRN 05/16/19 [History] Sulfamethoxazole/Trimethoprim [Septra DS] 1 tab PO BID #8 tablet 05/18/19 [Rx] [place] Carbonate 300 mg PO BID 05/27/19 [History] Past Medical History HEENT History: Reports: Impaired Vision Other HEENT History: 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 Cardiovascular History: Reports: Other (See Below) Other Cardiovascular History: PAD Respiratory History: Reports: Asthma, Bronchitis, Recurrent, Pneumonia, Recurrent Gastrointestinal History: Reports: Other (See Below) Other Gastrointestinal History: Gastroparesis Genitourinary History: Reports: Renal Calculus, UTI, Recurrent [employer] CHASSIS History: Reports: , Other (See Below) Other OB/BYN History: coma for 8 days due to UTI/spesis Musculoskeletal History: Reports: Osteoarthritis, Other (See Below) Other Musculoskeletal History: muscular atrophy Neurological History: Reports: Neuropathy, Diabetic, Seizure Psychiatric History: Reports: Anxiety, Bipolar, Depression, Other (See Below) Other Psychiatric History: Schizoaffect disease, manic depressive Endocrine/Metabolic History: Reports: Diabetes, Type I Hematologic History: Reports: B12 Deficiency, Other (See Below) Other Hematologic History: hyponatremia Immunologic History: Reports: None Oncologic (Cancer) History: Reports: None Dermatologic History: Reports: Psoriasis - Infectious Disease History Infectious Disease History: Reports: C-Difficile, Extended Spectrum Beta- Lactamase (ESBL) Other Infectious Disease History: C-diff over 6 years ago; lyme disease - Past Surgical History HEENT Surgical History: Reports: None Cardiovascular Surgical History: Reports: Other (See Below) Other Cardiovascular Surgeries/Procedures: PDA corrected at age 4 Respiratory Surgical History: Reports: None GI Surgical History: Reports: Cholecystectomy, Esophageal Dilatation Female Surgical History: Reports: D&C Endocrine Surgical History: Reports: None Neurological Surgical History: Reports: None Musculoskeletal Surgical History: Reports: None Oncologic Surgical History: Reports: None Dermatological Surgical History: Reports: None Social & Family History - Family History Family Medical History: Noncontributory - Tobacco Use Smoking Status *Q: Current Every Day Smoker Years of Tobacco use: 15 Packs/Tins Daily: 0.3 - Caffeine Use Caffeine Use: Reports: None Caffeine Use Comment: 2 pots of coffee today; 3 pops a day - Recreational Drug Use Recreational Drug Use: No - Living Situation & Occupation Living situation: Reports: with Significant Other Occupation: Unemployed H&P Review of Systems - Review of Systems: Review Of Systems: See Below General: Reports: Fatigue, Decreased Appetite HEENT: Denies: Visual Changes Pulmonary: Reports: No Symptoms. Denies: Shortness of Breath, Cough Cardiovascular: Reports: No Symptoms. Denies: Palpitations, Dyspnea on Exertion Gastrointestinal: Reports: Abdominal Pain, Diarrhea, Nausea, Vomiting. Denies: Bloody Stool, Decreased Appetite Genitourinary: Denies: Dysuria, Frequency, Burning Musculoskeletal: Reports: No Symptoms. Denies: Back Pain Skin: Denies: Rash Psychiatric: Reports: Depression, Mood Lability, Anxiety, Agitation Neurological: Denies: Headache Exam - Exam Exam: See Below - Vital Signs Vital Signs: Last Vital Signs Temp 97.6 F 05/28/19 06:58 Pulse 96 05/28/19 09:31 Resp 19 05/28/19 06:58 BP 121/76 05/28/19 09:31 Pulse Ox 99 05/28/19 09:31 Weight: 154 lb - Exam General: Alert, Oriented, Moderate Distress, Other (pt. deferred physical examination as she became increasingly agitated ; does not want anyone touching her belly as it hurts a lot. Is unhappy as providor and medical staff made her "feel small" when she was denied food when NPO order was in. ) HEENT: EOMI Lungs: Other (deferred examination) GI/Abdominal Exam: Other (deferred abdominal exmination b/c of "severe pain" ) Psychiatric: Labile Mood, Anxious, Agitated - Patient Data Lab Results Last 24 hrs: Laboratory Results - last 24 hr 05/28/19 05/28/19 05/28/19 Range/Units 07:18 07:18 07:38 WBC 11.56 H (4.0-11.0) K/uL RBC 4.01 L (4.30-5.90) M/uL Hgb 11.6 L (12.0-16.0) g/dL Hct 36.7 (36.0-46.0) % MCV 91.5 (80.0-98.0) fL MCH 28.9 (27.0-32.0) pg MCHC 31.6 (31.0-37.0) g/dL RDW Std Deviation 53.7 (28.0-62.0) fl RDW Coeff of Krystina 16 H (11.0-15.0) % Plt Count 360 (150-400) K/uL MPV 11.70 (7.40-12.00) fL Neut % (Auto) 65.3 (48.0-80.0) % Lymph % (Auto) 23.6 (16.0-40.0) % Gates % (Auto) 7.9 (0.0-15.0) % Eos % (Auto) 2.5 (0.0-7.0) % Baso % (Auto) 0.7 (0.0-1.5) % Neut # (Auto) 7.6 H (1.4-5.7) K/uL Lymph # (Auto) 2.7 H (0.6-2.4) K/uL Gates # (Auto) 0.9 H (0.0-0.8) K/uL Eos # (Auto) 0.3 (0.0-0.7) K/uL Baso # (Auto) 0.1 (0.0-0.1) K/uL Nucleated RBC % 0.0 /100WBC Nucleated RBCs # 0 K/uL ABG pH 7.237 L (7.35-7.45) ABG pCO2 20 L (35-45) mmHG ABG pO2 115 H (75-100) mmHG ABG HCO3 9 L (22-26) mEq/L ABG Total CO2 8.1 ABG Base Excess -16.9 L (-2.0-2.0) Sodium 123 L (136-145) mmol/L Potassium 5.0 (3.5-5.1) mmol/L Chloride 86 L (98-107) mmol/L Carbon Dioxide 12.8 L (21.0-32.0) mmol/L BUN 38 H (7.0-18.0) mg/dL Creatinine 1.3 H (0.6-1.0) mg/dL Est Cr Clr Drug Dosing 55.90 mL/min Estimated GFR (MDRD) 47.5 ml/min Glucose 974 H* (74-106) mg/dL POC Glucose (60-110) mg/dL Calcium 9.1 (8.5-10.1) mg/dL Total Bilirubin 0.6 (0.2-1.0) mg/dL AST 80 H (15-37) IU/L ALT 101 H (14-63) IU/L Alkaline Phosphatase 189 H (46-116) U/L Total Protein 6.7 (6.4-8.2) g/dL Albumin 3.7 (3.4-5.0) g/dL Globulin 3.0 (2.6-4.0) g/dL Albumin/Globulin Ratio 1.2 (0.9-1.6) Urine Color Urine Appearance Urine pH (5.0-8.0) Ur Specific [place] (1.001-1.035) Urine Protein (NEGATIVE) mg/dL Urine Glucose (UA) (NEGATIVE) mg/dL Urine Ketones (NEGATIVE) mg/dL Urine Occult Blood (NEGATIVE) Urine Nitrite (NEGATIVE) Urine Bilirubin (NEGATIVE) Urine Urobilinogen (<2.0) EU/dL Ur Leukocyte Esterase (NEGATIVE) 05/28/19 05/28/19 Range/Units 07:45 08:10 WBC (4.0-11.0) K/uL RBC (4.30-5.90) M/uL Hgb (12.0-16.0) g/dL Hct (36.0-46.0) % MCV (80.0-98.0) fL MCH (27.0-32.0) pg MCHC (31.0-37.0) g/dL RDW Std Deviation (28.0-62.0) fl RDW Coeff of Krystina (11.0-15.0) % Plt Count (150-400) K/uL MPV (7.40-12.00) fL Neut % (Auto) (48.0-80.0) % Lymph % (Auto) (16.0-40.0) % Gates % (Auto) (0.0-15.0) % Eos % (Auto) (0.0-7.0) % Baso % (Auto) (0.0-1.5) % Neut # (Auto) (1.4-5.7) K/uL Lymph # (Auto) (0.6-2.4) K/uL Gates # (Auto) (0.0-0.8) K/uL Eos # (Auto) (0.0-0.7) K/uL Baso # (Auto) (0.0-0.1) K/uL Nucleated RBC % /100WBC Nucleated RBCs # K/uL ABG pH (7.35-7.45) ABG pCO2 (35-45) mmHG ABG pO2 (75-100) mmHG ABG HCO3 (22-26) mEq/L ABG Total CO2 ABG Base Excess (-2.0-2.0) Sodium (136-145) mmol/L Potassium (3.5-5.1) mmol/L Chloride (98-107) mmol/L Carbon Dioxide (21.0-32.0) mmol/L BUN (7.0-18.0) mg/dL Creatinine (0.6-1.0) mg/dL Est Cr Clr Drug Dosing mL/min Estimated GFR (MDRD) ml/min Glucose (74-106) mg/dL POC Glucose > 500 H (60-110) mg/dL Calcium (8.5-10.1) mg/dL Total Bilirubin (0.2-1.0) mg/dL AST (15-37) IU/L ALT (14-63) IU/L Alkaline Phosphatase (46-116) U/L Total Protein (6.4-8.2) g/dL Albumin (3.4-5.0) g/dL Globulin (2.6-4.0) g/dL Albumin/Globulin Ratio (0.9-1.6) Urine Color YELLOW Urine Appearance CLEAR Urine pH 6.0 (5.0-8.0) Ur Specific [place] <= 1.005 (1.001-1.035) Urine Protein NEGATIVE (NEGATIVE) mg/dL Urine Glucose (UA) >=1000 (NEGATIVE) mg/dL Urine Ketones 40 H (NEGATIVE) mg/dL Urine Occult Blood NEGATIVE (NEGATIVE) Urine Nitrite NEGATIVE (NEGATIVE) Urine Bilirubin NEGATIVE (NEGATIVE) Urine Urobilinogen 0.2 (<2.0) EU/dL Ur Leukocyte Esterase NEGATIVE (NEGATIVE) Result Diagrams: 05/28/19 07:18 05/28/19 07:18 Problem List Initiated/Reviewed/Updated: Yes Orders Last 24hrs: Active Orders 24 hr Category Date Time Status Admission Status [Patient Status] [ADT] Stat ADT 05/28/19 08:41 Active EKG Documentation Completion [RC] STAT Care 05/28/19 07:05 Active Telemetry Monitoring [Cardiac Monitoring] [RC] . Care 05/28/19 09:29 Ordered DIRECTED Up ad Evelin [RC] ASDIRECTED Care 05/28/19 09:30 Ordered Vital Signs [RC] Q1H Care 05/28/19 09:27 Ordered NPO Now [Nothing per Oral Now Diet] [DIET] Diet 05/28/19 Lunch Ordered Insulin Regular, Human [NovoLIN R] 100 unit Med 05/28/19 08:00 Active Sodium Chloride 0.9% [Normal Saline] 99 ml IV TITRATE NS + KCl 20mEq/L [Normal Saline with 20 mEq KCl] 1,000 Med 05/28/19 09:45 Ordered ml IV ASDIRECTED Code Status [Resuscitation Status] Routine Resus Stat 05/28/19 09:27 Ordered Medication Orders Insulin Human Regular 100 unit (/ Sodium Chloride) 100 mls @ 7 mls/hr IV TITRATE DIEGO; Protocol Last Admin: 05/28/19 08:17 Dose: 7 unit/hr, 7 mls/hr Potassium Chloride/Sodium Chloride (Normal Saline With 20 Meq Kcl) 1,000 mls @ 200 mls/hr IV ASDIRECTED DIEGO; Protocol Assessment/Plan Comment:: assessment: 1. Diabetic ketoacidosis with high anion gap in a type I diabetic; noncompliant 2. Pseudo-Hyponatremia 3. acute kidney injury 4. Past medical history of bipolar manic depressive 5. possible gastroenteritis. Plan: 1. Admit to ICU/inpatient status. Vitals hourly. Intake outtake per routine. Diet :nothing by mouth until anion gap closes and blood glucose less than 250. Activity: up ad evelin. DVT prophylaxis SCDs. CODE STATUS full 2. She IV insulin DKA protocol most likely 7 units hourly; U IV fluids and normal saline 200 mL an hour 1 L hourly with additional 20 KCl. 3. BMP every 4 hours; 4. Subcutaneous 70 units every 2 hours once Closes with overleapt 2 hours. 5. We'll contact tele- ICU for recommendations. 6. Zofran 8 mg every 6 hours when necessary nausea vomiting 7. Continue home psych meds including lithium carbonate 300 mg twice a day with 1 dose now; and Ativan 1 mg 3 times a day when necessary for anxiety or agitation.
[2019-05-28] MEDS: Lithium Carbonate 300 MG Cap PO SCH ×2 (11:31→21:05)
--- NOTE | 2019-05-28 11:34 | PN ---
[facility] Physician - Brief Progress [id number]/30/2019 11:30[facility] Katie Tony, YOLANDE - MWN (LEBRON) - MWN CLARENCE PRADOAristeoDate of Service 05/28/2019 11:30HPI/Events of Note Young female with known history of diabetes, bipolar disorder, and chronic pain presented wit h DKA. Her sugars were very elevated on admission down to the 900 range. This morning the patient i s refusing any further treatment including any blood draws, fluid or any insulin therapy. She is kno wn to be noncompliant and has this issues before. She signed AMA on the past.The case have been disc ussed with the hospitalist who just left the patient room he said that the patient agreed on treatmen t at this point. She will be restarted on on fluid and insulin drip. She will get a renal panel irvin cked every 4 hours. Fluid will be switched to half-normal D5 when her sugar dropped less than 250 an d add potassium when her potassium dropped less than 4. Continue insulin drip until her anion gap is close x2 she can be switched to her regular regimen that she is taking at home. Psych is being cons ulted due to patient bipolar disorder and noncompliance issue. I will defer management to the hospit alist team. Please call if neededInterventions Major-Hyperglycemia - active titration of insulin the rapyMinor-Communication with other healthcare providers and/or family
[2019-05-28 12:10] LABS: CARBON DIOXIDE,CO2 18.4 mmol/L (21.0-32.0); POTASSIUM,K 4.5 mmol/L (3.5-5.1)
[2019-05-28] MEDS: Morphine 2 MG/ML Syringe IVPUSH PRN ×3 (12:39→23:01)
[2019-05-28] MEDS: diphenhydrAMINE 25 MG Cap PO PRN (12:40)
[2019-05-28] MEDS ORDERED: Dextrose 5%-0.45% NaCl 1,000 ML IV SCH (15:30)
[2019-05-28 15:43] LABS: BLOOD UREA NITROGEN,BUN 27 mg/dL (7.0-18.0); CARBON DIOXIDE,CO2 23.7 mmol/L (21.0-32.0); CHLORIDE,CL 103 mmol/L (98-107); GLUCOSE RANDOM 161 mg/dL (74-106); POTASSIUM,K 3.9 mmol/L (3.5-5.1); SODIUM,NA 138 mmol/L (136-145)
[2019-05-28] MEDS ORDERED: D5 1/2 NS w/ 20 mEq/L KCl 1,000 ML IV SCH (16:45)
[2019-05-28] MEDS ORDERED: Insulin Detemir 100 Units/ML 3 ML Pen SUBCUT ONE ×2 (16:50→17:05)
[2019-05-28 20:29] LABS: BLOOD UREA NITROGEN,BUN 22 mg/dL (7.0-18.0); CARBON DIOXIDE,CO2 24.8 mmol/L (21.0-32.0); CHLORIDE,CL 103 mmol/L (98-107); GLUCOSE RANDOM 205 mg/dL (74-106); POTASSIUM,K 4.2 mmol/L (3.5-5.1); SODIUM,NA 138 mmol/L (136-145)
[2019-05-28] MEDS ORDERED: Lithium Carbonate 300 MG Tab.ER ONE (20:31)
[2019-05-28] MEDS: Insulin Aspart 100 Units/ML 3 ML Pen SUBCUT SCH (20:54)
[2019-05-29] MEDS ORDERED: Morphine 2 MG/ML Syringe IVPUSH PRN ×2 (01:16→11:32)
[2019-05-29 06:52] LABS: BLOOD UREA NITROGEN,BUN 17 mg/dL (7.0-18.0); CARBON DIOXIDE,CO2 22.4 mmol/L (21.0-32.0); CHLORIDE,CL 106 mmol/L (98-107); GLUCOSE RANDOM 99 mg/dL (74-106); POTASSIUM,K 3.6 mmol/L (3.5-5.1); SODIUM,NA 139 mmol/L (136-145)
[2019-05-29] MEDS ORDERED: Insulin Aspart 100 Units/ML 3 ML Pen SUBCUT SCH (07:30)
[2019-05-29] MEDS: Lithium Carbonate 300 MG Cap PO SCH ×2 (09:50→20:52)
[2019-05-29] MEDS: Insulin Aspart 100 Units/ML 3 ML Pen SUBCUT SCH ×5 (09:58→20:54)
[2019-05-29] MEDS: Insulin Glargine,Human Rec. Analog 100 Units/ML 3 ML Pen SUBCUT SCH ×2 (10:00→13:45)
[2019-05-29] MEDS: diphenhydrAMINE 25 MG Cap PO PRN ×2 (10:01→23:48)
--- NOTE | 2019-05-29 11:58 | PCM.PN ---
- General Info Date of Service: 05/29/19 Subjective Update: patient seen at bedside in a.m.; states she is feeling much calmer and apologizes for outbursts throughout her stay. Otherwise states pain has been controlled with morphine; did have a productive conversation with Dr. Steele last night;agreed with Dr. Steele about medication adjustments. Order breakfast this morning and was eating. some mentioned noticing some cloudy and foul- smelling urine without dysuria, urgency, or frequency. Functional Status: Reports: Pain Controlled - Review of Systems General: Denies: Fever, Weakness, Fatigue Gastrointestinal: Reports: Abdominal Pain (improving), Nausea. Denies: Constipation, Diarrhea Genitourinary: Reports: Other (foul-smelling urine and cloudy). Denies: Dysuria Skin: Reports: No Symptoms Neurological: Reports: No Symptoms Psychiatric: Reports: Mood Lability, Anxiety - Patient Data Vitals - Most Recent: Last Vital Signs Temp 97.6 F 05/29/19 10:00 Pulse 89 05/28/19 18:57 Resp 13 05/29/19 09:00 BP 118/73 05/29/19 08:00 Pulse Ox 98 05/29/19 08:00 Weight - Most Recent: 139 lb 12.369 oz I&O - Last 24 Hours: Intake & Output 05/28/19 05/29/19 05/29/19 22:59 06:59 14:59 Intake Total 1581 750 Output Total 1000 1750 Balance 581 -1000 Lab Results Last 24 Hours: Laboratory Results - last 24 hr 05/28/19 05/28/19 05/28/19 Range/Units 11:27 12:34 13:31 Sodium 128 L (136-145) mmol/L Potassium 4.5 (3.5-5.1) mmol/L Chloride 94 L (98-107) mmol/L Carbon Dioxide 18.4 L (21.0-32.0) mmol/L BUN 31 H (7.0-18.0) mg/dL Creatinine 1.2 H (0.6-1.0) mg/dL Est Cr Clr Drug Dosing 60.56 mL/min Estimated GFR (MDRD) 52.1 ml/min Glucose 490 H (74-106) mg/dL POC Glucose 394 H 273 H (60-110) mg/dL Calcium 9.2 (8.5-10.1) mg/dL Urine Color Urine Appearance Urine pH (5.0-8.0) Ur Specific Fay (1.001-1.035) Urine Protein (NEGATIVE) mg/dL Urine Glucose (UA) (NEGATIVE) mg/dL Urine Ketones (NEGATIVE) mg/dL Urine Occult Blood (NEGATIVE) Urine Nitrite (NEGATIVE) Urine Bilirubin (NEGATIVE) Urine Urobilinogen (<2.0) EU/dL Ur Leukocyte Esterase (NEGATIVE) Urine RBC (0-2/HPF) Urine WBC (0-5/HPF) Ur Epithelial Cells (NONE-FEW) Urine Bacteria (NEGATIVE) 05/28/19 05/28/19 05/28/19 Range/Units 14:33 15:20 15:26 Sodium 138 (136-145) mmol/L Potassium 3.9 (3.5-5.1) mmol/L Chloride 103 (98-107) mmol/L Carbon Dioxide 23.7 (21.0-32.0) mmol/L BUN 27 H (7.0-18.0) mg/dL Creatinine 0.9 (0.6-1.0) mg/dL Est Cr Clr Drug Dosing 80.75 mL/min Estimated GFR (MDRD) > 60.0 ml/min Glucose 161 H (74-106) mg/dL POC Glucose 199 H 157 H (60-110) mg/dL Calcium 8.7 (8.5-10.1) mg/dL Urine Color Urine Appearance Urine pH (5.0-8.0) Ur Specific Fay (1.001-1.035) Urine Protein (NEGATIVE) mg/dL Urine Glucose (UA) (NEGATIVE) mg/dL Urine Ketones (NEGATIVE) mg/dL Urine Occult Blood (NEGATIVE) Urine Nitrite (NEGATIVE) Urine Bilirubin (NEGATIVE) Urine Urobilinogen (<2.0) EU/dL Ur Leukocyte Esterase (NEGATIVE) Urine RBC (0-2/HPF) Urine WBC (0-5/HPF) Ur Epithelial Cells (NONE-FEW) Urine Bacteria (NEGATIVE) 05/28/19 05/28/19 05/28/19 Range/Units 16:26 17:19 18:55 Sodium (136-145) mmol/L Potassium (3.5-5.1) mmol/L Chloride (98-107) mmol/L Carbon Dioxide (21.0-32.0) mmol/L BUN (7.0-18.0) mg/dL Creatinine (0.6-1.0) mg/dL Est Cr Clr Drug Dosing mL/min Estimated GFR (MDRD) ml/min Glucose (74-106) mg/dL POC Glucose 152 H 163 H 214 H (60-110) mg/dL Calcium (8.5-10.1) mg/dL Urine Color Urine Appearance Urine pH (5.0-8.0) Ur Specific Fay (1.001-1.035) Urine Protein (NEGATIVE) mg/dL Urine Glucose (UA) (NEGATIVE) mg/dL Urine Ketones (NEGATIVE) mg/dL Urine Occult Blood (NEGATIVE) Urine Nitrite (NEGATIVE) Urine Bilirubin (NEGATIVE) Urine Urobilinogen (<2.0) EU/dL Ur Leukocyte Esterase (NEGATIVE) Urine RBC (0-2/HPF) Urine WBC (0-5/HPF) Ur Epithelial Cells (NONE-FEW) Urine Bacteria (NEGATIVE) 05/28/19 05/28/19 05/29/19 Range/Units 20:07 20:09 05:53 Sodium 138 139 (136-145) mmol/L Potassium 4.2 3.6 (3.5-5.1) mmol/L Chloride 103 106 (98-107) mmol/L Carbon Dioxide 24.8 22.4 (21.0-32.0) mmol/L BUN 22 H 17 (7.0-18.0) mg/dL Creatinine 0.9 0.8 (0.6-1.0) mg/dL Est Cr Clr Drug Dosing 80.75 90.84 mL/min Estimated GFR (MDRD) > 60.0 > 60.0 ml/min Glucose 205 H 99 (74-106) mg/dL POC Glucose 211 H (60-110) mg/dL Calcium 9.0 8.7 (8.5-10.1) mg/dL Urine Color Urine Appearance Urine pH (5.0-8.0) Ur Specific Fay (1.001-1.035) Urine Protein (NEGATIVE) mg/dL Urine Glucose (UA) (NEGATIVE) mg/dL Urine Ketones (NEGATIVE) mg/dL Urine Occult Blood (NEGATIVE) Urine Nitrite (NEGATIVE) Urine Bilirubin (NEGATIVE) Urine Urobilinogen (<2.0) EU/dL Ur Leukocyte Esterase (NEGATIVE) Urine RBC (0-2/HPF) Urine WBC (0-5/HPF) Ur Epithelial Cells (NONE-FEW) Urine Bacteria (NEGATIVE) 05/29/19 Range/Units 10:00 Sodium (136-145) mmol/L Potassium (3.5-5.1) mmol/L Chloride (98-107) mmol/L Carbon Dioxide (21.0-32.0) mmol/L BUN (7.0-18.0) mg/dL Creatinine (0.6-1.0) mg/dL Est Cr Clr Drug Dosing mL/min Estimated GFR (MDRD) ml/min Glucose (74-106) mg/dL POC Glucose (60-110) mg/dL Calcium (8.5-10.1) mg/dL Urine Color YELLOW Urine Appearance SLT CLOUDY Urine pH 6.0 (5.0-8.0) Ur Specific Fay 1.015 (1.001-1.035) Urine Protein NEGATIVE (NEGATIVE) mg/dL Urine Glucose (UA) NEGATIVE (NEGATIVE) mg/dL Urine Ketones NEGATIVE (NEGATIVE) mg/dL Urine Occult Blood NEGATIVE (NEGATIVE) Urine Nitrite POSITIVE H (NEGATIVE) Urine Bilirubin NEGATIVE (NEGATIVE) Urine Urobilinogen 0.2 (<2.0) EU/dL Ur Leukocyte Esterase TRACE H (NEGATIVE) Urine RBC 0-1 (0-2/HPF) Urine WBC 0-2 (0-5/HPF) Ur Epithelial Cells OCCASIONAL (NONE-FEW) Urine Bacteria 3+ H (NEGATIVE) Med Orders - Current: Current Medications Albuterol (Ventolin Hfa) 0 gm INH QID PRN PRN Reason: SOB/wheezing Diphenhydramine HCl (Benadryl) 25 mg PO Q6H PRN PRN Reason: Itching Last Admin: 05/29/19 10:01 Dose: 25 mg Insulin Aspart (Novolog) 0 unit SUBCUT ACBED [facility]; Protocol Last Admin: 05/29/19 09:58 Dose: Not Given Insulin Glargine (Lantus Solostar) 25 units SUBCUT DAILY [facility] Last Admin: 05/29/19 10:00 Dose: Not Given [place] Carbonate (Eskalith) 600 mg PO BID [facility] Lorazepam (Ativan) 1 mg PO QID PRN PRN Reason: Anxiety Morphine Sulfate (Morphine) 2 mg IVPUSH Q8H PRN PRN Reason: Pain Nicotine (Habitrol) 21 mg TRDERM DAILY DIE[place] Ziprasidone (Geodon) 80 mg PO BEDTIME DIE[place] Discontinued Medications Sodium Chloride (Normal Saline) 1,000 mls @ 999 mls/hr IV STAT ONE Stop: 05/28/19 08:04 Last Admin: 05/28/19 07:30 Dose: 999 mls/hr Insulin Human Regular 100 unit (/ Sodium Chloride) 100 mls @ 7 mls/hr IV TITRATE DIEGO; Protocol Last Titration: 05/28/19 19:04 Dose: 2 unit/hr, 2 mls/hr Potassium Chloride/Sodium Chloride (Normal Saline With 20 Meq Kcl) 1,000 mls @ 200 mls/hr IV ASDIRECTED DIEGO; Protocol Last Admin: 05/28/19 10:20 Dose: 200 mls/hr Dextrose/Sodium Chloride (Dextrose 5%-1/2 Ns) 1,000 mls @ 200 mls/hr IV ASDIRECTED DIEGO Last Admin: 05/28/19 15:30 Dose: 200 mls/hr Potassium Chloride/Dextrose/Sod Cl (D5 1/2 Ns W/ 20 Meq/L Kcl) 1,000 mls @ 200 mls/hr IV ASDIRECTED DIEGO Last Admin: 05/28/19 17:00 Dose: 200 mls/hr Insulin Aspart (Novolog) 0 unit SUBCUT TIDAC DIEGO; Protocol Insulin Detemir (Levemir) 10 unit SUBCUT ONETIME ONE Stop: 05/28/19 16:51 Last Admin: 05/28/19 19:24 Dose: Not Given Insulin Detemir (Levemir) 15 unit SUBCUT ONETIME ONE Stop: 05/28/19 17:06 Last Admin: 05/28/19 17:17 Dose: 15 units Insulin Human Regular (Novolin R) 10 unit IVPUSH ONETIME ONE; Protocol Stop: 05/28/19 07:05 Last Admin: 05/28/19 07:37 Dose: 10 units Insulin Human Regular (Novolin R) 10 unit IVPUSH ONETIME ONE; Protocol Stop: 05/28/19 08:12 Last Admin: 05/28/19 08:15 Dose: 10 units Levofloxacin (Levaquin) 500 mg PO ONETIME ONE Stop: 05/29/19 11:27 [place] Carbonate (Eskalith) 300 mg PO BID [facility] Last Admin: 05/29/19 09:50 Dose: 300 mg [place] Carbonate (Lithobid) Confirm Administered Dose 300 mg .ROUTE .STK-MED ONE Stop: 05/28/19 20:32 Last Admin: 05/28/19 22:14 Dose: Not Given Morphine Sulfate (Morphine) 2 mg IVPUSH Q4H PRN PRN Reason: Pain Last Admin: 05/28/19 23:01 Dose: 2 mg Morphine Sulfate (Morphine) 2 mg IVPUSH Q6H PRN PRN Reason: Pain Last Admin: 05/29/19 09:49 Dose: 2 mg Ondansetron HCl (Zofran) 8 mg IVPUSH ONETIME ONE Stop: 05/28/19 07:25 Last Admin: 05/28/19 07:30 Dose: 8 mg - Exam General: Alert, Oriented, Cooperative HEENT: Pupils Equal, EOMI Lungs: Clear to Auscultation, Normal Respiratory Effort Cardiovascular: Regular Rate, Regular Rhythm GI/Abdominal Exam: Soft Skin: Warm, Dry, Intact Neurological: No New Focal Deficit Psy/Mental Status: Alert, Labile Mood (less labile compared to yesterday.) - Problem List Review Problem List Initiated/Reviewed/Updated: Yes - My Orders Last 24 Hours: My Active Orders 05/28/19 17:02 Accu Check [Blood Glucose Check, Bedside] [RC] QIDACANDBED 05/28/19 21:00 Insulin Aspart [NovoLOG] See Protocol SUBCUT ACBED 05/29/19 09:00 Insulin Glarg,Human.Rec.Analog [LantUS Solostar] 25 units SUBCUT DAILY 05/29/19 10:00 CULTURE URINE [RM] Routine 05/29/19 11:30 Nicotine [Habitrol] 21 mg TRDERM DAILY 05/29/19 11:32 Morphine 2 mg IVPUSH Q8H PRN 05/29/19 21:00 [place] Carbonate [Eskalith] 600 mg PO BID Ziprasidone HCl [Geodon] 80 mg PO BEDTIME - Plan Plan:: assessment: 1. Diabetic ketoacidosis with high anion gap in a type I diabetic; noncompliant: resolved 2. Pseudo-Hyponatremia:resolved 3. acute kidney injury improving 4. Past medical history of bipolar manic depressive 5. UTI 6.Tobacco abuse Plan: 1. type 2 diabetes: continue on the regimen of 25 long-acting units/AM and 15 units long-acting p.m...3 times a day Accu-Cheks w/meals 2. UTI: ordered urine culture initiated Levaquin 500 mg daily; will adjust accordingly 3. Manic depressive bipolar: per Dr. Steele recommendations; will increase lithium to 600 mg twice a day, add Geodon 80 mg nightly with food; schedule lorazepam 1 mg 3 times a day; will continue to space morphine to every [address] Steele states patient may have cluster B/C personality disorder/ histrionic disorder. Recommended follow-up in May at his clinic with him or his associates; also recommended repeating lithium level in one week. 4. nicotine patch 21 provided to patient. 5. Continue to monitor patient throughout the day; see how patient is adjusting to new medications, repeat labs, and return to the normal appetite/diet.
[2019-05-29] MEDS: Nicotine 21 MG/24 Hr Patch TRDERM SCH ×2 (13:21→13:53)
[2019-05-29] MEDS: Levofloxacin 500 MG Tab PO ONE ×2 (13:21→13:55)
[2019-05-29] MEDS ORDERED: Ondansetron 4 MG Tab.DIS PO PRN (18:01)
[2019-05-29] MEDS ORDERED: Insulin Glargine,Human Rec. Analog 100 Units/ML 3 ML Pen SUBCUT SCH (21:00)
[2019-05-29] MEDS ORDERED: Ziprasidone HCl 20 MG Cap PO SCH (21:00)
[2019-05-29] MEDS ORDERED: Pantoprazole 40 MG Tab.CR PO ONE (22:02)
[2019-05-30 08:31] LABS: BLOOD UREA NITROGEN,BUN 18 mg/dL (7.0-18.0); CARBON DIOXIDE,CO2 27.8 mmol/L (21.0-32.0); CHLORIDE,CL 106 mmol/L (98-107); GLUCOSE RANDOM 174 mg/dL (74-106); POTASSIUM,K 3.9 mmol/L (3.5-5.1); SODIUM,NA 141 mmol/L (136-145)
[2019-05-30] MEDS: Insulin Aspart 100 Units/ML 3 ML Pen SUBCUT SCH (08:43)
[2019-05-30] MEDS: Insulin Glargine,Human Rec. Analog 100 Units/ML 3 ML Pen SUBCUT SCH (08:48)
[2019-05-30] MEDS: Lithium Carbonate 300 MG Cap PO SCH (08:51)
[2019-05-30] MEDS: Nicotine 21 MG/24 Hr Patch TRDERM SCH (08:52)
--- NOTE | 2019-05-30 09:21 | PCM.DCSUM1 ---
<Crissy Spring - Last Filed: 05/30/19 10:29> Discharge Summary - Hospital Course HPI Initial Comments: Admission Date:05/30/19 Discharge Date: 05/28/19 Admission Diagnosis: 1. Diabetic ketoacidosis with high anion gap in a type I diabetic; noncompliant 2. Pseudo-Hyponatremia 3. acute kidney injury 4. Past medical history of bipolar manic depressive 5. possible gastroenteritis. Discharge Diagnosis: 1. DKA ,in a non compliant type 1 Diabetic- resolved 2. UTI 3. Manic depressive bipolar disorder 4. CHIP resolved Procedures: None Consults: Psychiatry- Dr. Steele Hospital Course: The patient is a 33-year-old female who presented to the ER in DKA. She had been admitted earlier in the week for hyperglycemia but left AMA. In the ER, she was started on an insulin drip and IV fluids. She was admitted to the ICU for inpatient care. She was continued on the insulin drip with serial BMPs until her anion gap closed and her glucose was below 200. Then she was transitioned to subcutaneous insulin. Once her DKA resolved, she was transitioned back to her regular insulin regimen, which is 25 units long- acting in the morning, 15 at night plus sliding scale. The patient has admitted been multiple times over the past month, often leaving AMA, being combative with nurses and refusing care while here. This in combination with her history of manic depressive bipolar disorder, she was evaluated by a tele- psych. Dr. Steele recommended that her lithium be increased to 600 mg twice a day, he added Geodon 80 mg at night and scheduled lorazepam 1 mg 3 times a day. He recommended that he she follow up with him as an outpatient in May. She did have acute kidney injury, kidney injury and was found to have a UTI and started on Levaquin and IV fluids. Urine culture was pending at the time of discharge. Acute kidney injury had resolved By day discharge, the patient wanted to leave and was stating she would leave AMA if not discharged. We discharged her and asked which medications she needed refills on. she stated she just needed her new meds. She stated she had enough Ativan and insulin at home. Disposition: Home Discharge Condition: vitals stable, tolerating oral diet, ambulating without difficulty, symptom improvement Discharge Instructions: regular diet as tolerated, activity as tolerated, take medications as prescribed. Symptoms to report to physician include fever/chills , chest pain, shortness of breath, abdominal pain, erythema, drainage/discharge , elevated blood glucose levels, or not improving as expected. Discharge Medications: Insulin Lispro [HumaLOG] 1 dose INJECT ASDIRECTED Albuterol [Ventolin HFA] 1 puff INH QID Pantoprazole Sodium [Protonix] 40 mg PO BID Sucralfate [Carafate] 1 gm PO TIDMEALS Insulin Glarg,Human.Rec.Analog [Lantus Solostar] 15 units SUBCUT BEDTIME pen Insulin Glarg,Human.Rec.Analog [Lantus Solostar] 25 units SUBCUT DAILY pen LORazepam [Ativan] 1 mg PO TID Penermon Carbonate [Eskalith] 600 mg PO BID Ziprasidone HCl [Geodon] 80 mg PO BEDTIME levoFLOXacin [Levaquin] 250 mg PO DAILY Follow-up: 1. PCP with Penermon level in 1 week 2. Psychiatry in May - Discharge Data Discharge Date: 05/30/19 Discharge Disposition: Home, Self-Care 01 Condition: Stable - Patient Instructions Diet: Diabetic Diet Activity: As Tolerated Showering/Bathing: January Shower Notify Provider of: Fever, Increased Pain, Swelling and Redness, Drainage, Nausea and/or Vomiting Other/Special Instructions: Additional symptoms include chest pain, shortness of breath, abdominal pain, or increased blood glucose levels. - Discharge Plan *PRESCRIPTION DRUG MONITORING PROGRAM REVIEWED*: No *COPY OF PRESCRIPTION DRUG MONITORING REPORT IN PATIENT FOSTER: No Prescriptions/Med Rec: levoFLOXacin [Levaquin] 250 mg PO DAILY 3 Days #3 tab [place] Carbonate [Eskalith] 600 mg PO BID 14 Days #28 cap Ziprasidone HCl [Geodon] 80 mg PO BEDTIME 14 Days #14 cap Home Medications: Home Meds Insulin Lispro [HumaLOG] 1 dose INJECT ASDIRECTED 04/22/19 [History] Albuterol [Ventolin HFA] 1 puff INH QID PRN 05/16/19 [History] Pantoprazole Sodium [Protonix] 40 mg PO BID 05/29/19 [History] Sucralfate [Carafate] 1 gm PO TIDMEALS 05/29/19 [History] Insulin Glarg,Human.Rec.Analog [Lantus Solostar] 15 units SUBCUT BEDTIME pen [Rx] Insulin Glarg,Human.Rec.Analog [Lantus Solostar] 25 units SUBCUT DAILY pen 10/17 [Rx] LORazepam [Ativan] 1 mg PO TID #0 05/30/19 [Rx] Penermon Carbonate [Eskalith] 600 mg PO BID 14 Days #28 cap 05/30/19 [Rx] Ziprasidone HCl [Geodon] 80 mg PO BEDTIME 14 Days #14 cap 05/30/19 [Rx] levoFLOXacin [Levaquin] 250 mg PO DAILY 3 Days #3 tab 05/30/19 [Rx] Patient Handouts: Ziprasidone capsules, Diabetic Ketoacidosis, Urinary Tract Infection, Adult, Levofloxacin tablets, Penermon tablets or capsules Referrals: Reuben Lee,Clinic [Ordering Only Provider] - PCP,None [Primary Care Provider] - - Discharge Summary/Plan Comment DC Time >30 min.: No - Patient Data Vitals - Most Recent: Last Vital Signs Temp 97 F 05/30/19 07:51 Pulse 84 05/30/19 07:51 Resp 18 05/30/19 07:51 BP 117/74 05/30/19 07:51 Pulse Ox 98 05/30/19 07:51 Weight - Most Recent: 63.4 kg I&O - Last 24 hours: Intake & Output 05/29/19 05/30/19 05/30/19 22:59 06:59 14:59 Intake Total 1320 Balance 1320 Lab Results - Last 24 hrs: Laboratory Results - last 24 hr 05/29/19 05/30/19 05/30/19 Range/Units 10:00 05:50 06:10 WBC 6.28 (4.0-11.0) K/uL RBC 4.00 L (4.30-5.90) M/uL Hgb 11.4 L (12.0-16.0) g/dL Hct 34.5 L (36.0-46.0) % MCV 86.3 (80.0-98.0) fL MCH 28.5 (27.0-32.0) pg MCHC 33.0 (31.0-37.0) g/dL RDW Std Deviation 47.9 (28.0-62.0) fl RDW Coeff of Krystina 15 (11.0-15.0) % Plt Count 313 (150-400) K/uL MPV 10.90 (7.40-12.00) fL Neut % (Auto) 45.2 L (48.0-80.0) % Lymph % (Auto) 41.1 H (16.0-40.0) % Anderson % (Auto) 8.6 (0.0-15.0) % Eos % (Auto) 4.6 (0.0-7.0) % Baso % (Auto) 0.5 (0.0-1.5) % Neut # (Auto) 2.8 (1.4-5.7) K/uL Lymph # (Auto) 2.6 H (0.6-2.4) K/uL Anderson # (Auto) 0.5 (0.0-0.8) K/uL Eos # (Auto) 0.3 (0.0-0.7) K/uL Baso # (Auto) 0.0 (0.0-0.1) K/uL Nucleated RBC % 0.0 /100WBC Nucleated RBCs # 0 K/uL Sodium 141 (136-145) mmol/L Potassium 3.9 (3.5-5.1) mmol/L Chloride 106 (98-107) mmol/L Carbon Dioxide 27.8 (21.0-32.0) mmol/L BUN 18 (7.0-18.0) mg/dL Creatinine 1.0 (0.6-1.0) mg/dL Est Cr Clr Drug Dosing 72.68 mL/min Estimated GFR (MDRD) > 60.0 ml/min Glucose 174 H (74-106) mg/dL Calcium 9.2 (8.5-10.1) mg/dL Urine Color YELLOW Urine Appearance SLT CLOUDY Urine pH 6.0 (5.0-8.0) Ur Specific [place] 1.015 (1.001-1.035) Urine Protein NEGATIVE (NEGATIVE) mg/dL Urine Glucose (UA) NEGATIVE (NEGATIVE) mg/dL Urine Ketones NEGATIVE (NEGATIVE) mg/dL Urine Occult Blood NEGATIVE (NEGATIVE) Urine Nitrite POSITIVE H (NEGATIVE) Urine Bilirubin NEGATIVE (NEGATIVE) Urine Urobilinogen 0.2 (<2.0) EU/dL Ur Leukocyte Esterase TRACE H (NEGATIVE) Urine RBC 0-1 (0-2/HPF) Urine WBC 0-2 (0-5/HPF) Ur Epithelial Cells OCCASIONAL (NONE-FEW) Urine Bacteria 3+ H (NEGATIVE) Med Orders - Current: Current Medications Albuterol (Ventolin Hfa) 0 gm INH QID PRN PRN Reason: SOB/wheezing Diphenhydramine HCl (Benadryl) 25 mg PO Q6H PRN PRN Reason: Itching Last Admin: 05/29/19 23:48 Dose: 25 mg Heparin Sodium (Porcine) (Heparin Lock Flush 100 Units/Ml) 500 units FLUSH ASDIRECTED PRN PRN Reason: Other Last Admin: 05/30/19 09:14 Dose: 500 units Insulin Aspart (Novolog) 0 unit SUBCUT ACBED [facility]; Protocol Last Admin: 05/30/19 08:43 Dose: 2 units Insulin Glargine (Lantus Solostar) 25 units SUBCUT DAILY [facility] Last Admin: 05/30/19 08:48 Dose: 25 units Insulin Glargine (Lantus Solostar) 15 units SUBCUT BEDTIME [facility] Last Admin: 05/29/19 20:53 Dose: 15 units Penermon Carbonate (Eskalith) 600 mg PO BID [facility] Last Admin: 05/30/19 08:51 Dose: 600 mg Lorazepam (Ativan) 1 mg PO QID PRN PRN Reason: Anxiety Last Admin: 05/29/19 21:08 Dose: 1 mg Morphine Sulfate (Morphine) 2 mg IVPUSH Q8H PRN PRN Reason: Pain Last Admin: 05/29/19 18:10 Dose: 2 mg Nicotine (Habitrol) 21 mg TRDERM DAILY [facility] Last Admin: 05/30/19 08:52 Dose: Not Given Ondansetron HCl (Zofran Odt) 8 mg PO ONETIME PRN PRN Reason: Nausea/Vomiting Last Admin: 05/29/19 18:30 Dose: 8 mg Ziprasidone (Geodon) 80 mg PO BEDTIME [facility] Last Admin: 05/29/19 20:51 Dose: 80 mg Discontinued Medications Sodium Chloride (Normal Saline) 1,000 mls @ 999 mls/hr IV STAT ONE Stop: 05/28/19 08:04 Last Admin: 05/28/19 07:30 Dose: 999 mls/hr Insulin Human Regular 100 unit (/ Sodium Chloride) 100 mls @ 7 mls/hr IV TITRATE [facility]; Protocol Last Titration: 05/28/19 19:04 Dose: 2 unit/hr, 2 mls/hr Potassium Chloride/Sodium Chloride (Normal Saline With 20 Meq Kcl) 1,000 mls @ 200 mls/hr IV ASDIRECTED [facility]; Protocol Last Admin: 05/28/19 10:20 Dose: 200 mls/hr Dextrose/Sodium Chloride (Dextrose 5%-1/2 Ns) 1,000 mls @ 200 mls/hr IV ASDIRECTED [facility] Last Admin: 05/28/19 15:30 Dose: 200 mls/hr Potassium Chloride/Dextrose/Sod Cl (D5 1/2 Ns W/ 20 Meq/L Kcl) 1,000 mls @ 200 mls/hr IV ASDIRECTED [facility] Last Admin: 05/28/19 17:00 Dose: 200 mls/hr Insulin Aspart (Novolog) 0 unit SUBCUT TIDAC [facility]; Protocol Insulin Detemir (Levemir) 10 unit SUBCUT ONETIME ONE Stop: 05/28/19 16:51 Last Admin: 05/28/19 19:24 Dose: Not Given Insulin Detemir (Levemir) 15 unit SUBCUT ONETIME ONE Stop: 05/28/19 17:06 Last Admin: 05/28/19 17:17 Dose: 15 units Insulin Human Regular (Novolin R) 10 unit IVPUSH ONETIME ONE; Protocol Stop: 05/28/19 07:05 Last Admin: 05/28/19 07:37 Dose: 10 units Insulin Human Regular (Novolin R) 10 unit IVPUSH ONETIME ONE; Protocol Stop: 05/28/19 08:12 Last Admin: 05/28/19 08:15 Dose: 10 units Levofloxacin (Levaquin) 500 mg PO ONETIME ONE Stop: 05/29/19 11:27 Last Admin: 05/29/19 13:55 Dose: 500 mg Penermon Carbonate (Eskalith) 300 mg PO BID [facility] Last Admin: 05/29/19 09:50 Dose: 300 mg Penermon Carbonate (Lithobid) Confirm Administered Dose 300 mg .ROUTE .STK-MED ONE Stop: 05/28/19 20:32 Last Admin: 05/28/19 22:14 Dose: Not Given Morphine Sulfate (Morphine) 2 mg IVPUSH Q4H PRN PRN Reason: Pain Last Admin: 05/28/19 23:01 Dose: 2 mg Morphine Sulfate (Morphine) 2 mg IVPUSH Q6H PRN PRN Reason: Pain Last Admin: 05/29/19 09:49 Dose: 2 mg Ondansetron HCl (Zofran) 8 mg IVPUSH ONETIME ONE Stop: 05/28/19 07:25 Last Admin: 05/28/19 07:30 Dose: 8 mg Pantoprazole Sodium (Protonix) 40 mg PO ONETIME ONE Stop: 05/29/19 22:03 Last Admin: 05/29/19 22:15 Dose: Not Given <David Coe - Last Filed: 05/31/19 11:29> - Patient Data Vitals - Most Recent: Last Vital Signs Temp 36.1 C 05/30/19 07:51 Pulse 84 05/30/19 07:51 Resp 18 05/30/19 07:51 BP 117/74 05/30/19 07:51 Pulse Ox 98 05/30/19 07:51 Med Orders - Current: Current Medications Discontinued Medications Albuterol (Ventolin Hfa) 0 gm INH QID PRN PRN Reason: SOB/wheezing Diphenhydramine HCl (Benadryl) 25 mg PO Q6H PRN PRN Reason: Itching Last Admin: 05/29/19 23:48 Dose: 25 mg Heparin Sodium (Porcine) (Heparin Lock Flush 100 Units/Ml) 500 units FLUSH ASDIRECTED PRN PRN Reason: Other Last Admin: 05/30/19 09:14 Dose: 500 units Sodium Chloride (Normal Saline) 1,000 mls @ 999 mls/hr IV STAT ONE Stop: 05/28/19 08:04 Last Admin: 05/28/19 07:30 Dose: 999 mls/hr Insulin Human Regular 100 unit (/ Sodium Chloride) 100 mls @ 7 mls/hr IV TITRATE [facility]; Protocol Last Titration: 05/28/19 19:04 Dose: 2 unit/hr, 2 mls/hr Potassium Chloride/Sodium Chloride (Normal Saline With 20 Meq Kcl) 1,000 mls @ 200 mls/hr IV ASDIRECTED [facility]; Protocol Last Admin: 05/28/19 10:20 Dose: 200 mls/hr Dextrose/Sodium Chloride (Dextrose 5%-1/2 Ns) 1,000 mls @ 200 mls/hr IV ASDIRECTED [facility] Last Admin: 05/28/19 15:30 Dose: 200 mls/hr Potassium Chloride/Dextrose/Sod Cl (D5 1/2 Ns W/ 20 Meq/L Kcl) 1,000 mls @ 200 mls/hr IV ASDIRECTED [facility] Last Admin: 05/28/19 17:00 Dose: 200 mls/hr Insulin Aspart (Novolog) 0 unit SUBCUT TIDAC [facility]; Protocol Insulin Aspart (Novolog) 0 unit SUBCUT ACBED [facility]; Protocol Last Admin: 05/30/19 08:43 Dose: 2 units Insulin Detemir (Levemir) 10 unit SUBCUT ONETIME ONE Stop: 05/28/19 16:51 Last Admin: 05/28/19 19:24 Dose: Not Given Insulin Detemir (Levemir) 15 unit SUBCUT ONETIME ONE Stop: 05/28/19 17:06 Last Admin: 05/28/19 17:17 Dose: 15 units Insulin Glargine (Lantus Solostar) 25 units SUBCUT DAILY [facility] Last Admin: 05/30/19 08:48 Dose: 25 units Insulin Glargine (Lantus Solostar) 15 units SUBCUT BEDTIME [facility] Last Admin: 05/29/19 20:53 Dose: 15 units Insulin Human Regular (Novolin R) 10 unit IVPUSH ONETIME ONE; Protocol Stop: 05/28/19 07:05 Last Admin: 05/28/19 07:37 Dose: 10 units Insulin Human Regular (Novolin R) 10 unit IVPUSH ONETIME ONE; Protocol Stop: 05/28/19 08:12 Last Admin: 05/28/19 08:15 Dose: 10 units Levofloxacin (Levaquin) 500 mg PO ONETIME ONE Stop: 05/29/19 11:27 Last Admin: 05/29/19 13:55 Dose: 500 mg Penermon Carbonate (Eskalith) 300 mg PO BID [facility] Last Admin: 05/29/19 09:50 Dose: 300 mg Penermon Carbonate (Lithobid) Confirm Administered Dose 300 mg .ROUTE .STK-MED ONE Stop: 05/28/19 20:32 Last Admin: 05/28/19 22:14 Dose: Not Given Penermon Carbonate (Eskalith) 600 mg PO BID [facility] Last Admin: 05/30/19 08:51 Dose: 600 mg Lorazepam (Ativan) 1 mg PO QID PRN PRN Reason: Anxiety Last Admin: 05/29/19 21:08 Dose: 1 mg Morphine Sulfate (Morphine) 2 mg IVPUSH Q4H PRN PRN Reason: Pain Last Admin: 05/28/19 23:01 Dose: 2 mg Morphine Sulfate (Morphine) 2 mg IVPUSH Q6H PRN PRN Reason: Pain Last Admin: 05/29/19 09:49 Dose: 2 mg Morphine Sulfate (Morphine) 2 mg IVPUSH Q8H PRN PRN Reason: Pain Last Admin: 05/29/19 18:10 Dose: 2 mg Nicotine (Habitrol) 21 mg TRDERM DAILY [facility] Last Admin: 05/30/19 08:52 Dose: Not Given Ondansetron HCl (Zofran) 8 mg IVPUSH ONETIME ONE Stop: 05/28/19 07:25 Last Admin: 05/28/19 07:30 Dose: 8 mg Ondansetron HCl (Zofran Odt) 8 mg PO ONETIME PRN PRN Reason: Nausea/Vomiting Last Admin: 05/29/19 18:30 Dose: 8 mg Pantoprazole Sodium (Protonix) 40 mg PO ONETIME ONE Stop: 05/29/19 22:03 Last Admin: 05/29/19 22:15 Dose: Not Given Ziprasidone (Geodon) 80 mg PO BEDTIME [facility] Last Admin: 05/29/19 20:51 Dose: 80 mg - Free Text/Narrative Note: I have evaluated the patient. I have discussed findings and treatment plan with resident. I agree with the assessment and plan outlined in the following note.
--- NOTE | 2019-05-31 17:29 | CONS ---
DATE OF CONSULTATION: 05/28/2019 DATE OF : 1985 PRIMARY CARE PHYSICIAN: None PCP Site where the services are provided is [facility] in in [place], [place]. Site where the services are provided from, our offices in [facility]. Length of service for this 60-minute inpatient telemedicine event is 60 minutes. IDENTIFICATION: The patient is a 33-year-old female, who is admitted to the inpatient MICU at [facility], [place], [place]. She is seen for psychiatric consultation per the request of staff attending, Dr. Coe, and his treatment team. CHIEF COMPLAINT: "My blood sugars have been kind of out of whack." HISTORY OF PRESENT ILLNESS: The patient is a 33-year-old female, who is admitted multiple times over the past 2 weeks for medication noncompliance in the face of her type 1 diabetes and for complications of hyperglycemia and DKA. The patient is being evaluated now for mood swings, and the patient is endorsing mood swings. She denies any illicit substances or excessive alcohol as complicating her clinical picture, but she does note that she and her moved up to [place], [place], earlier this year from [place], so her can get a job in the [employer]. She states that it has been very stressful and overwhelming for her this move up from [place] as she had been [place] her whole life. She also states that she lost an "uncle" on the maternal side last year and she was very close with him, and he was a confidant, but she does not have this resource in place anymore and it has been very hard for her. The patient has racing thoughts and ruminations. She states that she is not able to sleep and she has significant mood swings. She also goes on to note "I feel like I am not being heard. I get frustrated, I get mad, and then all I see is red." Again, she emphasizes how isolated she feels up in [place] and how the move up to [place] is "just overwhelming." She feels her mood is "a roller coaster." At this point in time, she struggles with feelings of low self-esteem. She states that she also has auditory hallucinations that are non-command type, and she also experiences racing thoughts and ruminations. She denies that she is suicidal or homicidal. She reports that she was on Geodon in the past. This medication did help her but then it seemed to stop working. Right now, she is taking Seroquel, but she does not feel it is effective for her in the least. She is also on lithium and the lithium initially helped her with her mood swings, but not so much since she has been up in [place]. She is denying any illicit substance use or excessive alcohol complicating her clinical picture again. Again, emphasized she does not have any of those kinds of habit. U-tox is negative per staff report. MEDICATIONS AT TIME OF PRESENTATION: 1. [place] carbonate 300 mg b.i.d. 2. Lorazepam 1 mg t.i.d. p.r.n. acute anxiety. 3. Seroquel 200 mg at bedtime. ALLERGIES: 1. Tylenol. 2. Salicylic acid. 3. Naprosyn. 4. Butorphanol. 5. Cephalexin. 6. Hydromorphone. 7. Reglan. 8. Fentanyl. 9. Ketorolac. 10.Morphine. 11.Tramadol. 12.Depakote. PAST MEDICAL HISTORY: 1. Diabetes type 1 x29 years. 2. 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 REVIEW OF SYSTEMS: Aside from endocrine and possibly neuro, all other major organ systems are negative at this point in time for acute difficulties or complications. FAMILY PSYCHIATRIC AND CD HISTORY: The patient reports she has a history of diabetes, but no mental health issues in the family. PAST PSYCHIATRIC AND CD HISTORY: The patient reports multiple psychiatric hospitalizations in the past. Denies any chemical dependency treatments. Does report that she is a quarter-pack per day smoker for the past number of years. She reports suicide attempts x4 in the past with the last one being in 2006. Denies any self-injurious behaviors or eating disorder history. PAST PSYCHIATRIC DIAGNOSIS: Includes bipolar affect disease and schizoaffective disorder. PAST PSYCHIATRIC MEDICATION HISTORY: Includes Prozac and Abilify which worked for her, but increased her blood sugars and had to be discontinued, Risperdal which gave her bad reaction, and Geodon which worked but then stopped working per patient report. SOCIAL HISTORY: Patient born and raised in [place], [place]. She is . Does not have any children. Her is a palletiser operator up in the auto field. She does have 6 pregnancies that ended in miscarriage. She is currently on SSDI for diabetes and she reports also for mental health issues. She lives in [place] with her and [id number] and then he had two dogs. She denies any prior service or any current legal difficulties. She is Taoist in terms of her brittney formation. She enjoys spending time with her dogs. MENTAL STATUS EXAMINATION: The patient is a 33-year-old well white female, in no apparent distress. Speech is of regular rate and rhythm. The patient is cognitively oriented x3. Psychomotor activity is within normal limits. There are no abnormal motor movements or tics observed. Gait and station are not observed. This patient is seated for the purposes of the inpatient consult. Mood is depressed and farmer as well as an angry. Affect is cooperative overall for the purposes of the inpatient consult. There is no behavioral or stated evidence of acute suicidal or homicidal ideation. Thought content significant for auditory hallucinations, non-command type. Thought processes are significant for racing thoughts and ruminations; however there are no acute manic symptoms or loose associations evident. Judgment and insight appear unimpaired at this point in time. Motivation for help appears fair to good. VITALS: 98/50, 87, 15, and 98 degrees. IMPRESSION: [place] I: 1. Bipolar affect disease, mixed type, F31.60. 2. Psychosis, not otherwise specified F29. 3. Rule out post-traumatic stress disorder. [place] II: Luster B and C traits. [place] III: 1. Diabetes type 1 x29 years. 2. Rule out pseudoseizures versus seizures in the past. [place] IV: Severe. [place] V: 55. PLAN: 1. Discontinue Seroquel. 2. Begin trial of Geodon 80 mg at bedtime to help eliminate psychotic symptoms and provide for mood stability and anxiety reduction. 3. Increase the patient's lithium carbonate 300 mg b.i.d. to 600 mg b.i.d., also for mood stability. 4. Continue Ativan 1 mg t.i.d. and change from p.r.n. to scheduled to help with anxiety reduction. 5. Obtain baseline lithium in approximately 7 days after initiation of high lithium dose to ensure the blood lithium levels remain within therapeutic range. 6. Other medications as dosed and prescribed by the patient's primary inpatient medical treatment team. 7. Medication compliance. 8. Recommend that the patient follow up with outpatient psychiatry once the patient is medically stabilized and discharged back to community to assess overall function and efficacy of her newly initiated and adjusted psychiatric medication regimen. 9. Caffeine moderation as the patient reports she is also drinking about 5-6 cups of coffee a day and this amount of caffeine intake could have an adverse impact on her mood stability. 10.The patient is instructed to maintain good hydration status. 11.We will continue to follow up the patient on as needed basis while she remains on inpatient MICU at [facility] in [place], [place]. 12.We will follow up with the patient sooner if there are any complications in the interim. 13.Also, augment the patient follow up with primary outpatient care provider to assess her overall physical condition once she is medically stabilized and discharge back to community. 14.Crisis plan is in place. RYAN / FORTINO /[id number]
== END 2019-05-30 09:30 | disposition home or self-care (01) | DRG 638 ==
LOC: MW.ED 06:56 → MW.MS 08:55 → MW.ICU 08:56 → MW.MS 05-29 17:39
PROVIDERS: ADMIT Internal Medicine; ATTEND Internal Medicine
DX: E10.10 Type 1 diabetes mellitus with ketoacidosis without coma (principal); N17.9 Acute kidney failure, unspecified; N39.0 Urinary tract infection, site not specified; E87.1 Hypo-osmolality and hyponatremia; F31.60 Bipolar disorder, current episode mixed, unspecified; J45.909 Unspecified asthma, uncomplicated; M19.90 Unspecified osteoarthritis, unspecified site; E10.42 Type 1 diabetes mellitus with diabetic polyneuropathy; E53.8 Deficiency of other specified B group vitamins; F17.200 Nicotine dependence, unspecified, uncomplicated; F25.9 Schizoaffective disorder, unspecified; F29 Unspecified psychosis not due to a substance or known physiological condition; Z88.1 Allergy status to other antibiotic agents; Z88.5 Allergy status to narcotic agent; Z88.6 Allergy status to analgesic agent; Z88.8 Allergy status to other drugs, medicaments and biological substances; Z87.01 Personal history of pneumonia (recurrent); Z87.442 Personal history of urinary calculi; Z90.49 Acquired absence of other specified parts of digestive tract; Z79.899 Other long term (current) drug therapy; Z91.19 Patient's noncompliance with other medical treatment and regimen
CPT/HCPCS: 36415; 36600; 80048; 80053; 81001; 81003; 82803; 82962; 85025; 87086; 87088; 87186; 93005; 96361; 96374; 99285-25; A9270-GY; J1642; J1815-GY; J2270; J2405; J3480; J7040; J7042